=== PATIENT | male | born 1975 | race Caucasian/White ===

== ENCOUNTER 2018-03-13 13:45 | Inpatient (IN) | payer MEDICAID, OTHER ==
--- NOTE | 2018-03-13 14:53 | EDPHY ---
H & P Stated Complaint: LLE Pain Time Seen by Provider: 03/13/18 14:52 HPI/ROS: CHIEF COMPLAINT: Left hip and groin pain HISTORY OF PRESENT ILLNESS: The patient presents to the ED for evaluation of left hip and groin pain that is been occurring for the past 5 days. The patient describes a severe pain worsened with palpation and movement in his left groin. The patient denies vomiting or diarrhea. He has no complaints of abdominal pain or back pain. He denies any history of fall or trauma. He does report subjective fevers. He was seen at his primary care provider's office and reportedly had a high white blood cell count and was referred to the ED for further evaluation. REVIEW OF SYSTEMS: A comprehensive 10 point review of systems is otherwise negative aside from elements mentioned in the history of present illness. Source: Patient Exam Limitations: No limitations - Personal History Current Tetanus/Diphtheria Vaccine: Yes - Medical/Surgical History Hx Asthma: No Hx Chronic Respiratory Disease: No Hx Diabetes: No Hx Cardiac Disease: No Hx Renal Disease: No Hx Cirrhosis: No Hx Alcoholism: No Other PMH: Denies - Social History Smoking Status: Never smoked - Physical Exam Exam: General Appearance: Alert, appears uncomfortable Eyes: Pupils equal and round no pallor or injection ENT, Mouth: Mucous membranes moist Respiratory: There are no retractions, lungs are clear to auscultation Cardiovascular: Regular rate and rhythm Gastrointestinal: Abdomen is soft and nontender, no masses, bowel sounds normal Neurological: A&O, normal motor function, normal sensory exam, normal cranial nerves Skin: No cellulitis or abscess Musculoskeletal: Tenderness to palpation over the left groin, patient has painful range of motion noted in the left hip. Extremities: symmetrical, full range of motion Constitutional: Initial Vital Signs Temperature (C) 37.6 C 03/13/18 13:57 Heart Rate 100 03/13/18 13:57 Respiratory Rate 18 03/13/18 13:57 Blood Pressure 135/83 H 03/13/18 13:57 O2 Sat (%) 95 03/13/18 13:57 O2 Delivery Mode Room Air Allergies/Adverse Reactions: No Known Allergies Allergy (Unverified 03/13/18 14:01) Home Medications: Medication Instructions Recorded Herbals/Supplements -Info Only 1 ea PO DAILY 03/13/18 Medical Decision Making - Diagnostics Imaging Results: Imaging Impressions Joint Aspiration/Injection 03/13/18 00:00 Impression: 1. Successful left hip joint aspiration. Abdomen CT 03/13/18 15:27 Impression: 1. Normal CT abdomen and pelvis with contrast enhancement. 2. Left hip joint effusion with enhancement of the joint capsule suspicious for septic left hip. Findings discussed with Jacob Blandon at 16:35 hour, 03/13/2018. Extremity CT 03/13/18 15:27 Impression: 1. Normal CT abdomen and pelvis with contrast enhancement. 2. Left hip joint effusion with enhancement of the joint capsule suspicious for septic left hip. Findings discussed with Jacob Blandon at 16:35 hour, 03/13/2018. ED Course/Re-evaluation: The patient presents the ED with atraumatic left hip pain increasing over the past 5 days. The patient reports fevers over the past 2 days. He is unable to ambulate secondary to pain. He denies any acute numbness or weakness. Patient denies any history of recent surgery, open skin sores or dental work. The patient was noted to have significant tenderness in his left hip and inability to walk and range his hip fully. Patient was noted to have a leukocytosis as well as elevated inflammatory markers with a CRP of 220 and a sed rate of 65. The patient was taken for CT scan of the abdomen pelvis and hip. It does demonstrate a large left hip effusion. I consulted with Dr. Shamar Rodriguez at 4:00 p.m. regarding my high clinical suspicion for septic arthritis. I spoke with his physician laboratory chemical assistant. He has requested that we aspirate the hip with the help of the imaging department. I have ordered a hip arthrocentesis. In order to attain the aspirated did require the installation 5 mL of saline by the radiologist. Synovial fluid demonstrates a white blood cell count of 8800. This is predominantly neutrophils. Preliminary is that no crystals were seen. Patient was seen by the orthopedic service in the ED was recommending observation and following blood cultures and synovial cultures this evening. ID consultation has been requested. Differential Diagnosis: Differential diagnosis considered includes septic arthritis, inflammatory arthritis, gouty arthritis, hemarthrosis - Data Points Laboratory Results: Laboratory Results 03/13/18 14:49 03/13/18 14:49 03/13/18 03/13/18 03/13/18 16:47 14:49 14:49 WBC RBC Hgb Hct 36.0 % L % (40.0-51.0) MCV MCH MCHC RDW Plt Count MPV Neut % (Auto) Lymph % (Auto) [place] % (Auto) Eos % (Auto) Baso % (Auto) Nucleat RBC Rel Count Absolute Neuts (auto) Absolute Lymphs (auto) Absolute Monos (auto) Absolute Eos (auto) Absolute Basos (auto) Absolute Nucleated RBC Immature Gran % Immature Gran # ESR 65 MM/HR H MM/HR (0-15) VBG Lactic Acid Sodium Potassium Chloride Carbon Dioxide Anion Gap BUN Creatinine Estimated GFR Glucose Calcium C-Reactive Protein 220.5 mg/L H mg/L (<10.0) Fl Pathologist Review Pending Synovial Source SYNOVIAL Synovial Color YELLOW H (CLS/PALE YL) Synovial Appearance CLOUDY H (CLEAR) Synovial WBC 8840 /mm3 H /mm3 (0-150) Synovial RBC 0 /mm3 /mm3 (0-0) Synovial Neutrophils 91 % H % (0-25) Synovial Lymphocytes 3 % % Synov Monos/Macrophage 6 % % Synovial Crystals Pending 03/13/18 03/13/18 03/13/18 14:49 14:49 14:49 WBC 13.53 10^3/uL H 10^3/uL (3.80-9.50) RBC 4.28 10^6/uL L 10^6/uL (4.40-6.38) Hgb 12.8 g/dL L g/dL (13.7-17.5) Hct 36.0 % L % (40.0-51.0) MCV 84.1 fL fL (81.5-99.8) MCH 29.9 pg pg (27.9-34.1) MCHC 35.6 g/dL g/dL (32.4-36.7) RDW 12.0 % % (11.5-15.2) Plt Count 339 10^3/uL 10^3/uL (150-400) MPV 9.7 fL fL (8.7-11.7) Neut % (Auto) 79.9 % H % (39.3-74.2) Lymph % (Auto) 8.6 % L % (15.0-45.0) [place] % (Auto) 10.9 % % (4.5-13.0) Eos % (Auto) 0.0 % L % (0.6-7.6) Baso % (Auto) 0.2 % L % (0.3-1.7) Nucleat RBC Rel Count 0.0 % % (0.0-0.2) Absolute Neuts (auto) 10.79 10^3/uL H 10^3/uL (1.70-6.50) Absolute Lymphs (auto) 1.17 10^3/uL 10^3/uL (1.00-3.00) Absolute Monos (auto) 1.48 10^3/uL H 10^3/uL (0.30-0.80) Absolute Eos (auto) 0.00 10^3/uL L 10^3/uL (0.03-0.40) Absolute Basos (auto) 0.03 10^3/uL 10^3/uL (0.02-0.10) Absolute Nucleated RBC 0.00 10^3/uL 10^3/uL (0-0.01) Immature Gran % 0.4 % % (0.0-1.1) Immature Gran # 0.06 10^3/uL 10^3/uL (0.00-0.10) ESR VBG Lactic Acid 2.0 mmol/L mmol/L (0.7-2.1) Sodium 133 mEq/L L mEq/L (135-145) Potassium 4.0 mEq/L mEq/L (3.3-5.0) Chloride 95 mEq/L L mEq/L (97-110) Carbon Dioxide 23 mEq/l mEq/l (22-31) Anion Gap 15 mEq/L mEq/L (8-16) BUN 14 mg/dL mg/dL (7-23) Creatinine 0.8 mg/dL mg/dL (0.7-1.3) Estimated GFR > 60 Glucose 115 mg/dL H mg/dL (70-100) Calcium 9.5 mg/dL mg/dL (8.5-10.4) C-Reactive Protein Fl Pathologist Review Synovial Source Synovial Color Synovial Appearance Synovial WBC Synovial RBC Synovial Neutrophils Synovial Lymphocytes Synov Monos/Macrophage Synovial Crystals Microbiology Results: MICROBIOLOGY 03/13/18 16:47 Hip - Aspirate Gram Stain - Final Medications Given: Discontinued Medications Hydromorphone HCl (Dilaudid) 1 mg IVP EDNOW ONE Stop: 03/13/18 15:23 Last Admin: 03/13/18 15:24 Dose: 1 mg Hydromorphone HCl (Dilaudid) 1 mg IVP ONCE ONE Stop: 03/13/18 18:22 Last Admin: 03/13/18 18:26 Dose: 1 mg Departure - Departure Disposition: [facility] Acute Clinical Impression: Septic arthritis Condition: Good
[2018-03-13 15:08] LABS: PLATELET COUNT 339 10^3/uL (150-400)
[2018-03-13] MEDS ORDERED: HYDROmorphONE/DILAUDID 1 MG/ML INJ ONE ×2 (15:22→18:20)
[2018-03-13] MEDS ORDERED: HYDROmorphONE/DILAUDID 2 MG/ML INJ IVP ONE (15:22)
[2018-03-13] MEDS ORDERED: IOPAMIDOL (ISOVUE-300) 100 ML BTL ONE (15:43)
[2018-03-13] MEDS ORDERED: LIDOCAINE 1% 300 MG/30 ML SDV ONE (16:56)
[2018-03-13] MEDS ORDERED: IOPAMIDOL (ISOVUE 370) 100 ML BTL IV ONE (16:56)
[2018-03-13] MEDS ORDERED: HYDROmorphONE/DILAUDID 1 MG/ML INJ IVP ONE (18:21)
[2018-03-13] MEDS ORDERED: HYDROmorphONE/DILAUDID 1 MG/ML INJ IVP PRN (19:06)
[2018-03-13] MEDS ORDERED: PROMETHAZINE HCL 25 MG/ML INJ IVP PRN (19:06)
[2018-03-13] MEDS ORDERED: ONDANSETRON 4 MG/2 ML VIAL IVP PRN (19:06)
[2018-03-13] MEDS ORDERED: ONDANSETRON DISINTEGRATING 4 MG TAB PO PRN (19:06)
[2018-03-13] MEDS ORDERED: KETOROLAC 30 MG/1 ML SDV IVP ONE (19:06)
--- NOTE | 2018-03-13 19:21 | PDCONSULT ---
Chucking Lathe Operator Note: ORTHOPEDIC CONSULT NOTE We were asked to consult on Rocio who is a 42 YOM. He began to have left hip pain about 5 days ago which has progressively gotten worse. He was seen at a clinic where x-rays were taken showing no abnormalities. Blood work showed elevated lymphocytes and CRP 220. He was instructed to go to [facility] ER where CT w/ contrast showed left hip effusion. Left Hip was aspirated which showed 8800 WBC, 91 neutrophils, neg crystals, and no organisms on gram stain. This case was discussed with Dr. Rodriguez. At this point cultures are pending, and he would like patient to be admitted for observation. We would like Infectious Disease to get involved as well for further evaluation. [facility] ID has been consulted. We will await further discussion from ID whether to proceed with a left hip washout surgery vs monitoring. Antibiotics should be administered via recommendations per ID. Patient remains afebrile. Pain is somewhat controlled. Please call for any further questions or concerns. Kadeem Dominique PA-C for Dr. Michael PEREZ (Orthopedic Surgery)
[2018-03-13] MEDS: NS 1,000 ML IV SCH (20:23)
[2018-03-13] MEDS: KETOROLAC 15 MG/1 ML SDV IVP SCH (23:53)
[2018-03-14] MEDS: oxyCODONE IR 5 MG TAB PO PRN (01:24)
--- NOTE | 2018-03-14 01:59 | GHP ---
DATE OF ADMISSION: 03/13/2018 CHIEF COMPLAINT: Hip pain. HISTORY: This is a 42-year-old man with no significant past medical history who presents with 5 days of severe right hip pain along with fever. Patient does not believe he did anything to injure it, a lthough he says he may have sort of overused it about a week ago. He was seen at his primary care pr precious's office where they noted an elevated white blood cell count and sent him to the ER for furthe r evaluation for concerns of a septic hip. In the ER, he was evaluated by Orthopedics who recommende d a hip aspiration, given notable effusion on extremity CT. At the time my evaluation, patient zee nues to have pain. He states he is unable to walk. He denies fevers or chills. PAST MEDICAL HISTORY: Denies. PAST SURGICAL HISTORY: Denies. SOCIAL HISTORY: Patient is nonsmoker, rare drinker. No drug use. He is accompanied by his mother. He is very active. REVIEW OF SYSTEMS: 10-point review of systems obtained and negative except as per HPI. HOME MEDICATIONS: None. ALLERGIES: None. PHYSICAL EXAM: VITAL SIGNS: BP 123/73, heart rate 88, respiratory rate 18, O2 sats 93% on room air, temperature is 38.4. GENERAL APPEARANCE: This is a well-developed, well-nourished man. He is awak e and alert. He is in no acute distress. EYES: Anicteric. HENT: Oropharynx clear. CARDIOVASCULA R: Regular rate and rhythm. No MRG. PULMONARY: CTA bilaterally. Normal work of breathing. ABDOM EN: Soft, nontender, nondistended. EXTREMITIES: No clubbing, cyanosis, or edema. There is tendern ess to palpation over the left hip and a small area that is bandaged where he had I and D performed. SKIN: Warm, dry, well perfused. NEURO/PSYCH: Oriented and appropriate, pleasant. CLINICAL DATA: Labs reviewed, notable for white blood cell count of 13.53, hematocrit of 36.0, plate lets of 339. Lactic acid is 2. Sodium is 133. CRP is 220.5. On hip aspiration, there is 8840 whit e blood cells, [address] personally reviewed and interpreted, shows normal CT abdomen and pelvis. There is a lef t hip joint effusion with enhancement of the joint capsule, suspicious for septic left hip. ASSESSMENT AND PLAN: 1. This is a 42-year-old man presenting with hip pain, concerning for septic hip. 2. Septic hip. Again, exam and hip aspiration concerning for septic joint. Cultures on the hip asp irate have been sent and are pending as are blood cultures. Gram stain shows no organisms. Orthoped ics has been consulted and are recommending overnight monitoring. At this point, we will hold off on antibiotics as there is a consideration for possible hip washout tomorrow and, given that patient is stable, would prefer this to be performed off antibiotics so the cultures will be more accurate. ID has been consulted. Patient will be made n.p.o. after [facility] 3. Leukocytosis in the setting of above and presumably related to same. 4. Sepsis. Patient does meet SIRS criteria with fever and leukocytosis in the setting of presumed s eptic joint. Again, holding off on antibiotics with a plan for likely washout and pending whether th ere is any data obtained on the hip aspirate. 5. Inpatient status: Patient will require greater than 48-hour stay for evaluation and management o f above. 6. Patient is new to my care. Old records reviewed, summarized as per HPI and past medical history. Care plan reviewed with ER physician including plans for orthopedic consultation. Further history obtained from patient's mother present at bedside. /[id number]/MODL
[2018-03-14] MEDS ORDERED: DIAZEPAM 10 MG TAB PO ONE (02:11)
[2018-03-14] MEDS ORDERED: DIAZEPAM 5 MG TAB PO ONE (02:15)
[2018-03-14] MEDS: ACETAMINOPHEN 325 MG TAB PO PRN ×3 (04:02→14:15)
[2018-03-14 04:38] LABS: PLATELET COUNT 300 10^3/uL (150-400)
[2018-03-14] MEDS: KETOROLAC 15 MG/1 ML SDV IVP SCH ×3 (05:33→21:33)
[2018-03-14] MEDS: NS 1,000 ML IV SCH ×2 (05:35→21:40)
--- NOTE | 2018-03-14 10:42 | GCON ---
INFECTIOUS DISEASE CONSULTATION REASON FOR CONSULTATION: Bacteremia and septic left hip. HISTORY OF PRESENT ILLNESS: This is a 42-year-old male with no medical problems who was in usual state of health until developing severe left hip pain on March 08. Patient started taking scheduled NSAID and was seen by his primary care in clinic where they prescribed him Toradol, but the pain continued to progress. Patient intermittently felt hot, but did not document any fevers. He also had decreasing appetite and feels he has had some weight loss. Preceding this episode, he denies any specific injury, although the day prior, he was more active getting in and out of his car. One week prior, he had a papule/pimple on his right naris that he manipulated significantly. Otherwise, he has no skin breaks. Today, patient feels increasing malaise and severe left hip pain that is unchanged from admission last night. In the emergency room, patient underwent a CT scan of his hip in which a joint effusion was identified associated with the left hip. Patient underwent aspiration of this left hip, but fluid was not able to be obtained; therefore, sterile saline was injected into the joint 5 cc and 3 cc removed in which 8400 wbc's were identified, 91% neutrophils. Patient' s CRP was 220, and white count was elevated at 13,000. Patient was admitted for further management and Orthopedics was consulted. PAST MEDICAL HISTORY: None. PAST SURGICAL HISTORY: None. ALLERGIES: No known drug allergies. HOME MEDICATIONS: None. Patient has not received antibiotics by the time of my visit. SOCIAL HISTORY: He denies IV drug use, significant alcohol use, tobacco. 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 He is living with a family friend. He has 2 dogs, but no injuries. He moved to [place] in 1987, from [place]. He considers himself heterosexual. Last sexual activity 3 years ago. Last HIV testing was greater than 1 year ago. FAMILY HISTORY: Positive for heart disease. REVIEW OF SYSTEMS: A complete 10-point review of systems was performed and is negative, except as mentioned in HPI. EXAM: VITAL SIGNS: Blood pressure 152/92, heart rate 111, respiratory rate 13 , saturation 93% on room air, temperature currently 37.3, T-max 38.6. GENERAL: This is a fairly thin, nontoxic-appearing male in no acute distress. HEENT: Poor dentition. Dry mucous membranes. NECK: Supple. CARDIOVASCULAR: Regular rate. Tachycardic. No murmurs. CHEST: Clear to auscultation bilaterally. ABDOMEN: Soft, nontender. EXTREMITIES: The patient had point tenderness around his left hip. No obvious skin abnormalities. He had no lower extremity edema. Patient was fairly unwilling to move his left hip due to irritability, but was able to flex his foot and had normal strength distally on the left side. No palpable warmth was appreciated. SKIN: No rashes. No peripheral stigmata of endocarditis. LABORATORY/IMAGING: White count 10.3, hematocrit 33, platelets of 300, neutrophils 87%. Creatinine 0.8. CRP 222. Synovial fluid cell count as per HPI. Microbiology: Blood cultures 03/13/2018: 1 of 2 positive blood cultures, GPCs in clusters. Hip aspirate 03/13/2018: Gram stain was negative. Cultures pending. Imaging as per HPI. ASSESSMENT/PLAN: This is a 42-year-old male without prior medical history who presents with spontaneous left septic hip arthritis and associated bacteremia. Based on current data, suspect Staphylococcus aureus, awaiting BCID. In the meantime due to tachycardia and ongoing fever, would initiate vancomycin with a goal of 15 to 20, 1.25 g IV q.12 and will tailor antibiotics based on additional information from BCID. Discussed with Orthopedics, patient will need a washout of this left hip. Patient is adamant to have laparoscopic procedure and discussed increased chance for repeat washout needed with laparoscopic procedures with disease duet to SA. Would recommend still obtaining cultures intraoperatively during procedure. Discussed with patient that he will need prolonged intravenous antibiotic therapy to treat his spontaneous left septic arthritis and discussed PICC line placement. I will continue to follow patient on a daily basis. Greater than 70 minutes spent on this patients care, greater than 50% of time spent counseling, educating, and coordinating care regarding the above mentioned plan /[id number]/MODL MTDD
[2018-03-14] MEDS ORDERED: ACETAMINOPHEN 325 MG TAB PO ONE (10:43)
[2018-03-14] MEDS ORDERED: FAMOTIDINE 20 MG TAB PO ONE (10:43)
--- NOTE | 2018-03-14 10:43 | ASMTCMCOM ---
CM Note CM Note Notes: Pt admitted for septic hip and possible bacteremia with blood cultures positive for MRSA and gram positive cocci clusters. Pt to have I&D washout today at 14:30. CM needs TBD after surgery. PT and OT ordered. D/C Plan: TBD Date Signed: 03/14/2018 10:43 AM Electronically Signed By:Prema Sy
--- NOTE | 2018-03-14 10:50 | PDCONSULT ---
Breaker Oiler Note: ORTHOPEDIC CONSULT NOTE Patient pain has been well controlled. Lab studies show bacteremia with gram pos cocci clusters, and he has tested pos for MRSA. ASSESMENT/PLAN Septic Left Hip Discussed case with Dr. Campo (Orthopedics) who has agreed to do a left hip arthroscopic washout. Case will begin about 2:30pm today 03/14 Risks and benefits of procedure were discussed with patient. Consent was signed. Hospitalist, Infectious Disease, and Dr. Campo (ortho) will continue to manage and follow this patient. We appreciate being able to consult on this patient. If any questions arise please dont hesitate to reach out. EXAM: Left Hip Painful ROM. No erythema or open wounds noted. Distal neurovasculature intact. Kadeem Dominique PA-C. Dr Rodriguez (Orthopedic Surgery) also examined patient and agrees with above plan of care.
[2018-03-14] MEDS ORDERED: ONDANSETRON DISINTEGRATING 4 MG TAB PO PRN (10:52)
--- NOTE | 2018-03-14 10:55 | ASMTCMCOM ---
CM Note CM Note Notes: Spoke with pt and mother in the room. Pt states he doesn't anticipate any CM needs upon discharge. Mother and housemate are available to help with food, medications and transportation. Pt to see PT/OT after surgery today for full evaluation. CM needs TBD, likely independent. D/c Plan: likely independent TBD. Date Signed: 03/14/2018 10:54 AM Electronically Signed By:Prema Sy
[2018-03-14] MEDS: VANCOMYCIN 1.25 GM in D5W 250 ML IV SCH ×2 (11:17→21:33)
--- NOTE | 2018-03-14 12:18 | HOSPPROG ---
Hospitalist Progress Note Assessment/Plan: Mr Avila is a 42 y/o who presented w hip pain. This has been ongoing since March 08. Today is my first encounter w the patient, chart reviewed. * septic hip -to get wash out today *tachycardia and fevers -due to the above *sepsis due to the above *bacteremia -MRSA -vancomycin -on contact precautions -CRP elevated at 220 *hyponatremia -mild *Plan: OR today Subjective: Rocio has some tenderness in left hip area. Objective: Vital Signs Temp Pulse Resp BP Pulse Ox 37.3 C 111 H 13 150/92 H 93 03/14/18 08:00 03/14/18 08:00 03/14/18 08:00 03/14/18 08:00 03/14/18 08:00 Laboratory Results 03/14/18 04:17 03/13/18 03/14/18 03/15/18 05:59 05:59 05:59 Intake Total 130 Output Total 700 Balance -570 - Physical Exam Constitutional: no apparent distress, other (thin) Eyes: PERRL Ears, Nose, Mouth, Throat: hearing normal Cardiovascular: regular rate and rhythym Respiratory: no respiratory distress Gastrointestinal: normoactive bowel sounds Skin: warm Musculoskeletal: muscular tenderness (left thigh, left hip area) Neurologic: AAOx3 Psychiatric: interacting appropriately ICD10 Worksheet Patient Problems: Problems Problem Status Onset Septic arthritis Acute
--- NOTE | 2018-03-14 13:26 | PDMN ---
Medical Necessity Medical necessity: Pt meets inpt criteria per MD order and MCG M-605, Septic Arthritis, 3 days. 42 y/o w/severe R hip pain and fevers, admitted w/septic arthritis, CT shows notable L hip joint effusion, suspicious for septic L hip, hip aspirate w/ 8840 WBC's, 91 neutrophils, CRP 220.5. Blood cultures + MRSA, sepsis w/pt meeting SIRS criteria w/fevers, leukocytosis. IVF, IV antibiotics, pain meds, ID consult, ortho consult, plan for OR today for hip washout. Anticipate>2MN for ongoing med nec eval/treatment of above.
[2018-03-14] MEDS: HYDROmorphONE/DILAUDID 2 MG/ML INJ IVP PRN ×2 (13:57→13:59)
[2018-03-14 15:04] LABS: HIV TYPE 1 AND 2 NEGATIVE (NEGATIVE)
[2018-03-14] MEDS ORDERED: FAMOTIDINE 20 MG TAB ONE (15:11)
[2018-03-14] MEDS ORDERED: LR 1,000 ML IV ONE (15:22)
[2018-03-14] MEDS ORDERED: LIDOCAINE 1% 2 ML INJ ID PRN (15:22)
[2018-03-14] MEDS ORDERED: MIDAZOLAM 2 MG/2 ML VIAL IVP ONE (15:24)
[2018-03-14] MEDS ORDERED: MIDAZOLAM 2 MG/2 ML VIAL ONE (15:25)
--- NOTE | 2018-03-14 15:26 | PDANEPAE ---
ANE History of Present Illness 42 yo for hip scope ANE Past Medical History - Cardiovascular History Hx Hypertension: No Hx Arrhythmias: No Hx Chest Pain: No Hx Coronary Artery / Peripheral Vascular Disease: No Hx CHF / Valvular Disease: No Hx Palpitations: No - Pulmonary History Hx COPD: No Hx Asthma/Reactive Airway Disease: No Hx Recent Upper Respiratory Infection: No Hx Oxygen in Use at Home: No Hx Sleep Apnea: No Sleep Apnea Screening Result - Last Documented: Negative - Endocrine History Hx Diabetes: No - Chronic Pain History Chronic Pain: No ANE Review of Systems Review of Systems: - Exercise capacity METS (RN): 5 METS ANE Patient History - Allergies Allergies/Adverse Reactions: No Known Allergies Allergy (Unverified 03/13/18 14:01) - Home Medications Home medications: home medication list seen and reviewed Home Medications: Herbals/Supplements -Info Only 1 ea PO DAILY 03/13/18 [Last Taken 03/13/18] - NPO status NPO Since - Liquids (Date): 03/14/18 NPO Since - Liquids (Time): 00:00 NPO Since - Solids (Date): 03/14/18 NPO Since - Solids (Time): 00:00 - Anes Hx Anes Hx: no prior problems - Smoking Hx Smoking Status: Never smoked ANE Labs/Vital Signs - Labs Result Diagrams: 03/14/18 04:17 03/13/18 14:49 - Vital Signs Blood Pressure: 118/71 Heart Rate: 120 Respiratory Rate: 16 O2 Sat (%): 90 Height: 5 ft 11 in Weight: 66 kg ANE Physical Exam - Airway Neck exam: FROM Mallampati Score: Class 2 Mouth exam: normal dental/mouth exam - Pulmonary Pulmonary: no respiratory distress - Cardiovascular Cardiovascular: regular rate and rhythym - ASA Status ASA Status: II ANE Anesthesia Plan Anesthesia Plan: general endotracheal anesthesia
[2018-03-14] MEDS ORDERED: REMIFENTANIL HCL 1 MG VIAL ONE (15:33)
[2018-03-14] MEDS ORDERED: fentaNYL 100 MCG/2 ML INJ ONE ×3 (15:33→18:33)
[2018-03-14] MEDS ORDERED: PROPOFOL/EMULSION 500 MG/50 ML BOTTLE IV ONE (15:33)
[2018-03-14] MEDS ORDERED: ROCURONIUM 50 MG/5 ML VIAL ONE (15:36)
[2018-03-14] MEDS ORDERED: LIDOCAINE 2% 100 MG/5 ML SYR ONE (15:37)
[2018-03-14] MEDS ORDERED: DEXAMETHASONE 4 MG/ML VIAL ONE (15:37)
[2018-03-14] MEDS ORDERED: VANCOMYCIN 1 GM VIAL ONE (16:49)
[2018-03-14] MEDS ORDERED: WATER FOR INJ.,BACTERIOSTATIC 30 ML MDV ONE (16:50)
[2018-03-14] MEDS ORDERED: GLYCOPYRROLATE 0.2 MG/1 ML VIAL ONE ×2 (17:26)
[2018-03-14] MEDS ORDERED: NEOSTIGMINE METHYLSULFATE 5 MG/5 ML SYR ONE (17:26)
[2018-03-14] MEDS ORDERED: NALOXONE HCL 0.4 MG/ML INJ IVP PRN (17:28)
[2018-03-14] MEDS ORDERED: HYDROmorphONE/DILAUDID 2 MG/ML INJ IVP PRN (17:28)
[2018-03-14] MEDS ORDERED: ONDANSETRON 4 MG/2 ML VIAL IVP PRN (17:28)
[2018-03-14] MEDS ORDERED: fentaNYL 100 MCG/2 ML INJ IVP PRN (17:28)
--- NOTE | 2018-03-14 18:52 | POSTANESTH ---
Post Anesthetic Evaluation Cardiovascular Status: Normal, Stable Respiratory Status: Normal, Stable Level of Consciousness/Mental Status: Can Participate in Eval Pain Control: Adequate, Prn Tx Ordered Nausea/Vomiting Control: Adequate, Prn Tx Ordered Complications Possibly Related to Anesthesia: None Noted
--- NOTE | 2018-03-14 23:59 | SUROPNOTE ---
[facility] Operative Report - Surgery OPERATION NOTE~on Rocio Esparza~ This is a 42 yo patients with Left septic hip of unknown cause. He was admitted to [facility] and was under the care of internal medicine and ID. I was asked by Dr Patel to performed an arthroscopic wash out. All parameters indicated this is the right procedure at this time to improve this patient's status. MRI did not show bone edema or AVN or other worrying signs. Surgery was performed at:~[facility] Date of Surgery:~03/14/2018 Diagnosis:~ 1. Left septic hip 2. JILLIAN with labral tear and cartilage damage Operation:~Left~Arthroscopic wash out of a septic hip, debridement of labral tear, extensive synovectomy, multiple biopsies of tissue and fluid were sent to pathology and bacteriology~~~ Indication: Failure to obtain satisfactory results with long standing conservative measures. Surgeon:~~~~~~~~~~~Garry De La Rosa MD ~ Anaesthetic:~~~~~General Findings~ Left~Hip: 40ml of pus were aspirated at the beginning of the procedure Labrum:~Torn and Frayed around~12-5~O'clock.~will require recon if JILLIAN scope is performed.~ Acetabulum:~Cartilage damage grade~3-4~extending around chondrolabral junction, circumferentially, from 10~to 1,~20% rim to acatabular fossa Fovea:~Reactive LT Femoral Head:~frayed cartilage G1 - not much affected yet by the sepsis~ Synovium:~severe~synovitis Peripheral Compartment:~Anterolateral CAM between~11~O'clock superiorly and 6~O' clock anteriorly Procedure: Supine on operating table. General anaesthetic. Antibiotics given. Standard traction set up, without perineal post. A spinal needle was guided to the femoral head neck junction and traction gradually applied with the joint vented. Local anesthetic infiltrated into the skin around the portals. Once~17mm of distraction was achieved the hip needle was then passed into the joint staying as close to the femoral head as possible. A Nytenol wire was passed through the hip needle ensuring that it passed all the way to the fovea to confirm central placement of the needle. Skin was incised and then the portals sequentially dilated to 7 mm. Switching stick inserted and 30 scope passed over the top. Under dry scope conditions the anterior portal was created by passing the hip needle into the joint under direct vision. Again this was dilated up to 7 mm and the slotted canule was inserted. The saline was then turned on and the joint irrigated. The joint was carefully inspected and photographed with findings as above. The arthroscope was switched to the 70 scope to complete the inspection. A longitudinal intra portal capsulotomy was then performed using quartz valley blade and the 50 Arthrocare wand to connect the two portals. Central Compartment Intervention: Synovectomy was performed.~ multiple biopsies of tissue and fluid were sent to pathology and bacteriology Labral tissue was debrided at its base. Peripheral Compartment Intervention:~ No cam work was done at this time - despite large cam Good seal was seen. The joint was thoroughly irrigated~with 10 litters of saline and Vanco Abx. The skin was then closed with Nylon. Padded dressing was applied. Drain was left for 24 hours. Post op instructions: 1.~Full~weight bearing crutches for 3~weeks 2. Pain killers as prescribed 3. Abx / ID coverage~ ~ Kind regards, ~~ Dr. Garry De La Rosa
[2018-03-15] MEDS: KETOROLAC 15 MG/1 ML SDV IVP SCH ×5 (01:58→23:36)
[2018-03-15] MEDS: NS 1,000 ML IV SCH ×2 (06:19→17:06)
--- NOTE | 2018-03-15 08:52 | HOSPPROG ---
Hospitalist Progress Note Assessment/Plan: Mr Avila is a 42 y/o who presented w hip pain. This has been ongoing since March 08. * left septic hip -s/p washout and labral tear repair w Dr De La Rosa *tachycardia and fevers -much improved *sepsis due to the above *MRSA bacteremia -vancomycin -on contact precautions -CRP elevated at 220 *hyponatremia -mild *Plan: reviewed w patient lab results in regards to HIV, continue supportive care, to get an echo today. Subjective: Rocio is feeling overall better today, is tearful about being sick. Objective: Vital Signs Temp Pulse Resp BP Pulse Ox 36.7 C 86 16 105/66 95 03/15/18 03:25 03/15/18 03:25 03/15/18 03:25 03/15/18 03:25 03/15/18 03:25 Microbiology 03/14/18 17:30 Gram Stain - Final Hip - Tissue 03/14/18 16:39 Gram Stain - Final Hip - Tissue 03/14/18 16:39 Gram Stain - Final Hip - Aspirate Laboratory Results 03/14/18 04:17 03/14/18 03/15/18 03/16/18 05:59 05:59 05:59 Intake Total 130 2270 875 Output Total 700 220 600 Balance -570 2050 275 - Physical Exam Constitutional: no apparent distress, appears nourished, uncomfortable Eyes: PERRL Ears, Nose, Mouth, Throat: hearing normal Cardiovascular: regular rate and rhythym, no murmur, rub, or gallop Respiratory: no respiratory distress Gastrointestinal: normoactive bowel sounds Skin: warm Neurologic: AAOx3 Psychiatric: interacting appropriately ICD10 Worksheet Patient Problems: Problems Problem Status Onset Septic arthritis Acute
[2018-03-15] MEDS: VANCOMYCIN 1.25 GM in D5W 250 ML IV SCH ×2 (10:16→21:21)
--- NOTE | 2018-03-15 11:15 | PCMIDPN ---
Assessment/Plan: 1. MRSA bacteremia with left hip septic arthritis status post arthroscopic washout with labral tear repair: Patient reported self manipulation of an intranasal infected hair follicle vs. other 3 days prior to feeling unwell. This certainly could be the source of his bacteremia in the setting of extensive self manipulation. No obvious reach of his integument on physical exam. Will obtain echocardiogram for completeness sake today, and repeat blood cultures. Vancomycin trough ordered for the morning, but if requires q.8 dosing of vancomycin, would prefer to switch to once daily daptomycin for ease of administration. HIV antibody testing negative. 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 I told him I was unable to do that, but if he has concerns about his safety, would recommend calling adult protective services. He expressed understanding. Over 35 min spent with this patient today. Subjective: States he is feeling better. Status post arthroscopic washout of left septic hip, with labral tear repair. Denies shaking chills. No diarrhea. No rash. Proceeded to have extensive conversation with me about the ela of his infection, and concerns over his elderly roommates hygiene practices. Objective: T-max 39.7 degrees Vancomycin 1.25 g IV q.12 hours day 1 Vital Signs Temp Pulse Resp BP Pulse Ox 36.7 C 86 16 105/66 95 03/15/18 03:25 03/15/18 03:25 03/15/18 03:25 03/15/18 03:25 03/15/18 03:25 Microbiology 03/14/18 17:30 Gram Stain - Final Hip - Tissue 03/14/18 16:39 Gram Stain - Final Hip - Tissue 03/14/18 16:39 Gram Stain - Final Hip - Aspirate Laboratory Results 03/14/18 04:17 03/14/18 03/15/18 03/16/18 05:59 05:59 05:59 Intake Total 130 2270 875 Output Total 700 220 600 Balance -570 2050 275 ESR 65 MM/HR (0-15) H 03/13/18 14:49 C-Reactive Protein 220.5 mg/L (<10.0) H 03/13/18 14:49 - Physical Exam General Appearance: alert, no apparent distress EENT: No scleral icterus, No thrush Respiratory: lungs clear Cardiac/Chest: regular rate, rhythm, No systolic murmur Extremities: other (Left hip is wrapped; I did not take the dressing down) Abdomen: non-tender, soft Skin: No rash, No embolic lesions ICD10 Worksheet Patient Problems: Problems Problem Status Onset Septic arthritis Acute
[2018-03-15] MEDS: HYDROCODONE/APAP 5/325 TAB PO PRN ×3 (11:47→21:20)
[2018-03-15 11:56] LABS: GC AMPLIFICATION GENPROBE NEGATIVE (NEGATIVE)
[2018-03-15 12:27] LABS: CREATINE KINASE 133 IU/L (0-224)
--- NOTE | 2018-03-15 15:08 | ASMTCMCOM ---
CM Note CM Note Notes: Pt approved for Medicaid #[id number], pt very relieved to hear this. Pt likely needs senior care IV antibiotics. Referral sent to [facility], [facility] pt Medicaid and he is covered 100% for Vanco. Pt d/c date TBD and exactly which antibiotic pt will d/c with TBD. 01/01 can accept pt for home health, referral sent in [employer]. D/c plan of care: Home with IV antibiotcs via [facility] and 01/01 [facility] Date Signed: 03/15/2018 03:05 PM Electronically Signed By:SHINE Chand
--- NOTE | 2018-03-15 15:35 | ECHO ---
[email or web address] [address] [address] Main: [phone] Fax: Transthoracic Echocardiogram Name: HERI FRANCISCO MR#: [id number] Study Date: 03/15/2018 Study Time: 02:08 PM Date of : 1975 Age: 42 year(s) Height: 180.3 cm (71 in.) Weight: 65.77 kg (145 lb.) BSA: 1.84 m2 Gender: Male Examination: Echo Indication: MRSA bacteremia, left hip septic arthritis, eval for endocarditis Image Quality: Contrast: Requested by: Margaret Braun BP: 127 mmHg/77 mmHg Heart Rate: Rhythm: Tachycardia Indication: MRSA bacteremia, left hip septic arthritis, eval for endocarditis Procedure Staff Analyst Sales: Imer Carvalho RDCS Reading Physician: Hernesto Boone MD Requesting Provider: Conclusions: Normal size left ventricle. Normal global systolic LV function. EF is 66 %. The mitral valve is normal in appearance and function. Trivial mitral valve regurgitation. The aortic valve is tri-leaflet. There is no significant aortic valve regurgitation. The pulmonary artery pressure could not be adequately estimated. No vegetations or significant valve dysfunction identified on TTE. Consider SUE if clinicially indicated. No old studies for comparison. Measurements: Chambers Valvular Assessment AV/MV Valvular Assessment TV/PV Normal Normal Normal Name Value Range Name Value Range Name Value Range Ao Gabbi (MM): 3.1 cm (2.2 cm-3.7 AV Vmax: 1.59 m/s (1 m/s-1.7 TR Vmax: 3.42 mm/s ( - ) cm) m/s) PV Vmax: 1.21 m/s (0.6 m/s-0.9 IVSd (2D): 0.7 cm (0.6 cm-1.1 AV maxP mmHg ( - ) m/s) cm) LVOT Vmax: 1.29 m/s (0.7 m/s-1.1 PV PGmax: 6 mmHg ( - ) LVDd (2D): 5.2 cm (4.2 cm-5.9 m/s) cm) MV E Vmax: 0.85 m/s ( - ) LVDs (2D): 3.3 cm (2.1 cm-4 MV A Vmax: 0.72 m/s ( - ) cm) MV E/A: 1.18 ( - ) LVPWd (2D): 0.9 cm (0.6 cm-1 cm) LVEF (2D): 66 (>=54 %) Continued Measurements: Chambers Valvular Assessment AV/MV Valvular Assessment TV/PV Patient: HERI FRANCISCO Study Date: 03/15/2018 Page 1 of 2 02:08 PM Name Value Name Value Name Value LADs Lon.3 cm MV E' Septal: 0.10 m/s CVP (est.): 5 mmHg LA Area: 16.6 cm2 MV E/E' Septal: 8.10 LA Volume: 49 ml MV E/E' Lateral: 6.00 LA Volume Index: 26.6 ml/m2 Findings: Left Ventricle: Normal size left ventricle. No LV hypertrophy. Normal global systolic LV function. EF is 66 %. No regional wall motion abnormality. Normal diastolic LV function. Right Ventricle: Normal size right ventricle. Normal RV function. Left Atrium: The left atrium is normal in size. Right Atrium: The right atrium is normal in size. Mitral Valve: The mitral valve is normal in appearance and function. Trivial mitral valve regurgitation. Aortic Valve: The aortic valve is tri-leaflet. There is no significant aortic valve regurgitation. Tricuspid Valve: The tricuspid valve appears normal. Trivial to mild tricuspid valve regurgitation. Pulmonic Valve: The pulmonic valve is normal in appearance and function. Aorta: The aorta is normal. Pericardium: No pericardial effusion. (No Signature Object) Patient: HERI FRANCISCO Study Date: 03/15/2018 Page 2 of 2 02:08 PM [id number]
--- NOTE | 2018-03-16 00:07 | SOAPPROG ---
SOLE Progress Note Assessment/Plan: Assessment: Plan: 03/16/18 00:04 saw the patient POD 1 after arthroscopic washout (03/15 1pm). Pulled drain out, not much in it or in gaze under tega. Feels better, looks better. NV intact. Discussed surgical findings with him. FWB with crutches recommended. Under care of ID, no restrictions on my end. Dr De La Rosa Objective: Vital Signs Temp Pulse Resp BP Pulse Ox 37.7 C 100 18 120/71 91 L 03/15/18 23:34 03/15/18 23:34 03/15/18 23:34 03/15/18 23:34 03/15/18 23:34 Microbiology 03/14/18 16:39 Gram Stain - Final Hip - Tissue 03/14/18 16:39 Gram Stain - Final Hip - Aspirate 03/14/18 17:30 Gram Stain - Final Hip - Tissue 03/14/18 16:39 Mycobacterial Smear (MEGGAN) - Final Hip - Aspirate 03/14/18 16:39 Mycobacterial Smear (MEGGAN) - Final Hip - Tissue 03/14/18 17:30 Mycobacterial Smear (MEGGAN) - Final Hip - Tissue Laboratory Results 03/14/18 04:17 03/14/18 03/15/18 03/16/18 05:59 05:59 05:59 Intake Total 130 2270 4950 Output Total 557 605 7655 Balance -570 2050 2950 ICD10 Worksheet Patient Problems: Problems Problem Status Onset Septic arthritis Acute
[2018-03-16] MEDS: NS 1,000 ML IV SCH ×3 (03:06→20:59)
[2018-03-16] MEDS: HYDROCODONE/APAP 5/325 TAB PO PRN ×4 (03:15→20:59)
[2018-03-16] MEDS: KETOROLAC 15 MG/1 ML SDV IVP SCH ×4 (06:04→23:56)
--- NOTE | 2018-03-16 08:31 | HOSPPROG ---
Hospitalist Progress Note Assessment/Plan: Mr Avila is a 42 y/o who presented w hip pain. This has been ongoing since March 08. * left septic hip -s/p washout and labral tear repair w Dr De La Rosa *tachycardia and fevers -much improved *sepsis due to the above *MRSA bacteremia -vancomycin, to be changed to Daptomycin today (reviewed his care w Dr Braun) -on contact precautions -CRP elevated at 220 -second set of blood cx remain + *hyponatremia -mild *constipation -bowel protocol *Plan: continue current treatment, no PICC line until cx are cleared x 48 hours Subjective: Rocio is feeling better today, minimal pain. Objective: Vital Signs Temp Pulse Resp BP Pulse Ox 37.1 C 73 16 115/73 90 L 03/16/18 07:43 03/16/18 07:43 03/16/18 07:43 03/16/18 07:43 03/16/18 07:43 Microbiology 03/14/18 16:39 Gram Stain - Final Hip - Tissue 03/14/18 16:39 Gram Stain - Final Hip - Aspirate 03/14/18 17:30 Gram Stain - Final Hip - Tissue 03/14/18 16:39 Mycobacterial Smear (MEGGAN) - Final Hip - Aspirate 03/14/18 16:39 Mycobacterial Smear (MEGGAN) - Final Hip - Tissue 03/14/18 17:30 Mycobacterial Smear (MEGGAN) - Final Hip - Tissue Laboratory Results 03/14/18 04:17 03/15/18 03/16/18 03/17/18 05:59 05:59 05:59 Intake Total 2270 5950 1469 Output Total 220 2600 400 Balance 2050 3350 1069 - Physical Exam Constitutional: no apparent distress, not in pain Ears, Nose, Mouth, Throat: hearing normal Cardiovascular: regular rate and rhythym Respiratory: no respiratory distress Skin: warm Musculoskeletal: full muscle strength Neurologic: AAOx3 Psychiatric: interacting appropriately ICD10 Worksheet Patient Problems: Problems Problem Status Onset Septic arthritis Acute
[2018-03-16] MEDS ORDERED: BISACODYL 10 MG SUPP PR PRN (09:00)
[2018-03-16] MEDS ORDERED: LACTULOSE 20 GM/30 ML UDCUP PO PRN (09:00)
[2018-03-16] MEDS ORDERED: MAGNESIUM HYDROXIDE 30 ML UDCUP PO PRN (09:00)
[2018-03-16] MEDS: SENNOSIDES/DOCUSATE SODIUM TAB PO SCH ×2 (09:54→20:59)
[2018-03-16] MEDS: POLYETHYLENE GLYCOL 3350 17 GM PKT PO SCH (09:54)
[2018-03-16] MEDS: VANCOMYCIN 1.25 GM in D5W 250 ML IV SCH (11:18)
[2018-03-16] MEDS: DAPTOmycin 400 MG in NS 100 ML IV SCH (11:38)
--- NOTE | 2018-03-16 12:17 | PCMIDPN ---
Assessment/Plan: 1. MRSA bacteremia with left hip septic arthritis status post arthroscopic washout with labral tear repair: As outlined yesterday, suspect extensive self manipulation of intranasal folliculitis is potential source of infection. Changed vancomycin to daptomycin given low trough and probable need for every 8 hr dosing of vancomycin, which is impractical moving forward. CK is normal at baseline. Talked to patient today about possibility of drug-induced myopathy or allergic hypersensitivity pneumonitis from daptomycin. He expressed understanding. Blood cultures yesterday are still positive, but bacterial burden is decreasing ; repeat blood cultures tomorrow. Echocardiogram without evidence of vegetations; do not feel that he needs a SUE presently. No PICC line until blood cultures are clear for 48 hr. Of note, if the patient continues to be febrile and bacteremic, may require open washout and SUE. Subjective: In good spirits today. No real complaints. Walked around with OT yesterday without any problems. Orthopedics removed his drain yesterday. Objective: Vancomycin day 2 Now on daptomycin 400 mg IV daily as of today T-max 39.3 degrees Vital Signs Temp Pulse Resp BP Pulse Ox 37.1 C 73 16 115/73 90 L 03/16/18 07:43 03/16/18 07:43 03/16/18 07:43 03/16/18 07:43 03/16/18 07:43 Microbiology 03/14/18 16:39 Gram Stain - Final Hip - Tissue 03/14/18 16:39 Gram Stain - Final Hip - Aspirate 03/14/18 17:30 Gram Stain - Final Hip - Tissue 03/14/18 16:39 Mycobacterial Smear (MEGGAN) - Final Hip - Aspirate 03/14/18 16:39 Mycobacterial Smear (MEGGAN) - Final Hip - Tissue 03/14/18 17:30 Mycobacterial Smear (MEGGAN) - Final Hip - Tissue Laboratory Results 03/14/18 04:17 03/16/18 08:50 03/15/18 03/16/18 03/17/18 05:59 05:59 05:59 Intake Total 2270 5950 1469 Output Total 220 2600 400 Balance 2050 3350 1069 ESR 65 MM/HR (0-15) H 03/13/18 14:49 C-Reactive Protein 220.5 mg/L (<10.0) H 03/13/18 14:49 Blood cultures March 1507/15 bottles MSSA Vancomycin MEGGAN 1 Daptomycin MEGGAN less than 1 - Physical Exam General Appearance: alert, no apparent distress EENT: pharynx normal, No thrush Respiratory: lungs clear Cardiac/Chest: regular rate, rhythm Extremities: other (Left hip with a SilvaSorb dressing in place that I did not remove. No obvious swelling or erythema. Mildly tender around the dressing.) Abdomen: non-tender, soft Skin: No rash, No embolic lesions ICD10 Worksheet Patient Problems: Problems Problem Status Onset Septic arthritis Acute
[2018-03-17] MEDS: HYDROCODONE/APAP 5/325 TAB PO PRN ×2 (03:47→21:46)
[2018-03-17] MEDS: KETOROLAC 15 MG/1 ML SDV IVP SCH ×4 (05:49→23:28)
[2018-03-17] MEDS: NS 1,000 ML IV SCH ×2 (07:28→23:36)
--- NOTE | 2018-03-17 09:38 | HOSPPROG ---
Hospitalist Progress Note Assessment/Plan: Mr Avila is a 42 y/o who presented w hip pain. This has been ongoing since March 08. * left septic hip -s/p washout and labral tear repair w Dr De La Rosa -left leg wound site with more drainage and having more pain -may need further washout (reviewed this w Dr Braun-she will see Rocio) *tachycardia and fevers -febrile yesterday and tachycardic -echo shows no vegetations -if remains febrile, may need a SUE (will discuss w ID) *sepsis due to the above *MRSA bacteremia -daptomycin -on contact precautions -CRP elevated at 220 -second set of blood cx remain + -3rd set pending *insomnia -added scheduled Melatonin and prn Restoril *Reflux -scheduled PPI and prn Tums *hyponatremia -mild *constipation -bowel protocol *Plan: continue current treatment, no PICC line until cx are cleared x 48 hours. Reviewed his care with him and his mom. Rocio has multiple concerns and these were discussed. Subjective: Rocio is not feeling well today, has some nausea, concerned his wound was draining last night down his leg/ describes it as clear bloody. Objective: Vital Signs Temp Pulse Resp BP Pulse Ox 36.8 C 102 H 16 119/75 93 03/17/18 07:55 03/17/18 07:55 03/17/18 07:55 03/17/18 07:55 03/17/18 07:55 Microbiology 03/14/18 17:30 Gram Stain - Final Hip - Tissue 03/14/18 16:39 Gram Stain - Final Hip - Aspirate 03/14/18 16:39 Gram Stain - Final Hip - Tissue Laboratory Results 03/14/18 04:17 03/16/18 08:50 03/16/18 03/17/18 03/18/18 05:59 05:59 05:59 Intake Total 5950 3919 Output Total 2600 2500 350 Balance 3350 1419 -350 - Physical Exam Constitutional: uncomfortable, No not in pain (left hip) Eyes: PERRL Ears, Nose, Mouth, Throat: hearing normal Cardiovascular: regular rate and rhythym, no murmur, rub, or gallop, tachycardia Respiratory: no respiratory distress Skin: warm, No normal color (pale) Neurologic: AAOx3 Psychiatric: not encephalopathic, thought process linear, anxious ICD10 Worksheet Patient Problems: Problems Problem Status Onset Septic arthritis Acute
[2018-03-17] MEDS: OXYCODONE/APAP 5/325 TAB PO PRN (09:45)
[2018-03-17] MEDS: ONDANSETRON 4 MG/2 ML VIAL IVP PRN (09:48)
[2018-03-17] MEDS: POLYETHYLENE GLYCOL 3350 17 GM PKT PO SCH (09:51)
[2018-03-17] MEDS: SENNOSIDES/DOCUSATE SODIUM TAB PO SCH ×2 (09:52→21:47)
[2018-03-17] MEDS: DAPTOmycin 400 MG in NS 100 ML IV SCH (09:59)
[2018-03-17] MEDS ORDERED: CALCIUM CARBONATE 500 MG CHEWABLE TAB PO PRN (10:44)
[2018-03-17] MEDS ORDERED: TEMAZEPAM 15 MG CAP PO PRN (10:48)
--- NOTE | 2018-03-17 11:51 | PCMIDPN ---
Assessment/Plan: 1. MRSA bacteremia with left hip septic arthritis status post arthroscopic washout with labral tear repair: The patient has pus spurting from arthroscopic incisions this morning, and unfortunately will require another washout. He absolutely declines an open washout, and wants another arthroscopy in spite of my counseling. Continue daptomycin as is. Repeat blood cultures are pending, although they may continue to be positive in setting of ongoing infection in the left hip. 03/17/18 11:41 Subjective: Mother is in the room. Tells me"I had a bad night."Tells me that when he gets up and walks around, has drainage from his arthroscopic incisions. Also having some chills. Was able to express significant amount of purulence from his arthroscopic incisions this morning. Please see impression and plan Objective: Daptomycin 400 mg IV daily day 2 (antibiotics day 3) T-max 38.4 degrees Vital Signs Temp Pulse Resp BP Pulse Ox 36.8 C 102 H 16 119/75 93 03/17/18 07:55 03/17/18 07:55 03/17/18 07:55 03/17/18 07:55 03/17/18 07:55 Microbiology 03/14/18 17:30 Gram Stain - Final Hip - Tissue 03/14/18 16:39 Gram Stain - Final Hip - Aspirate 03/14/18 16:39 Gram Stain - Final Hip - Tissue Laboratory Results 03/14/18 04:17 03/16/18 08:50 03/16/18 03/17/18 03/18/18 05:59 05:59 05:59 Intake Total 5950 3919 Output Total 2600 2500 350 Balance 3350 1419 -350 ESR 65 MM/HR (0-15) H 03/13/18 14:49 C-Reactive Protein 220.5 mg/L (<10.0) H 03/13/18 14:49 Blood cultures March 15 x2 sets 2/4 bottles MRSA, daptomycin MEGGAN less than 1 March 17 blood cultures x2 pending - Physical Exam General Appearance: alert, no apparent distress EENT: pharynx normal, No thrush Extremities: other (Left hip continues to be swollen: Was able to express significant amount of bloody purulence from arthroscopic incisions.) Skin: No rash ICD10 Worksheet Patient Problems: Problems Problem Status Onset Septic arthritis Acute
[2018-03-17 13:42] LABS: PLATELET COUNT 234 10^3/uL (150-400)
[2018-03-17] MEDS: PANTOPRAZOLE SODIUM 40 MG TAB PO SCH (13:53)
[2018-03-17] MEDS ORDERED: BUPIVACAINE 0.25% 30 ML SDV ONE (16:38)
[2018-03-17] MEDS ORDERED: EPINEPHrine 1 MG/ML INJ ONE (16:38)
[2018-03-17] MEDS ORDERED: EPINEPHrine 30 MG/30 ML MDV (0.1 MG/0.1 ML) ONE (16:38)
--- NOTE | 2018-03-17 17:52 | PDHPUP ---
History & Physical Update H&P update statement: This history and physical update is based on an assessment of the patient which was completed after admission or registration (within 24 hours), but prior to the surgery/procedure. H&P update: H&P reviewed & patient examined, no change in patient's condition since H&P completed (Plan for repeat left hip arthroscopic irrigation and debridement.)
[2018-03-17] MEDS ORDERED: MIDAZOLAM 2 MG/2 ML VIAL ONE (18:17)
--- NOTE | 2018-03-17 18:17 | PDANEPAE ---
ANE History of Present Illness L hip I&D ANE Past Medical History - Cardiovascular History Hx Hypertension: No Hx Arrhythmias: No Hx Chest Pain: No Hx Coronary Artery / Peripheral Vascular Disease: No Hx CHF / Valvular Disease: No Hx Palpitations: No - Pulmonary History Hx COPD: No Hx Asthma/Reactive Airway Disease: No Hx Recent Upper Respiratory Infection: No Hx Oxygen in Use at Home: No Hx Sleep Apnea: No Sleep Apnea Screening Result - Last Documented: Negative - Endocrine History Hx Diabetes: No - Chronic Pain History Chronic Pain: No ANE Review of Systems Review of systems is: negative Review of Systems: - Exercise capacity METS (RN): 5 METS ANE Patient History - Allergies Allergies/Adverse Reactions: No Known Allergies Allergy (Unverified 03/13/18 14:01) - Home Medications Home medications: home medication list seen and reviewed Home Medications: Herbals/Supplements -Info Only 1 ea PO DAILY 03/13/18 [Last Taken 03/13/18] - NPO status NPO Since - Liquids (Date): 03/17/18 (light meal) NPO Since - Liquids (Time): 11:30 NPO Since - Solids (Date): 03/17/18 NPO Since - Solids (Time): 11:30 - Anes Hx Anes Hx: no prior problems - Smoking Hx Smoking Status: Never smoked - Family Anes Hx Family Anes Hx: none ANE Labs/Vital Signs - Labs Result Diagrams: 03/17/18 13:35 03/17/18 13:35 - Vital Signs Vital Signs: reviewed preoperatively; see RN documention for details Blood Pressure: 122/84 Heart Rate: 108 Respiratory Rate: 16 O2 Sat (%): 89 Height: 180.34 cm Weight: 66 kg ANE Physical Exam - Airway Neck exam: FROM Mallampati Score: Class 1 Mouth exam: normal dental/mouth exam - Pulmonary Pulmonary: no respiratory distress - Cardiovascular Cardiovascular: regular rate and rhythym - ASA Status ASA Status: II ANE Anesthesia Plan Anesthesia Plan: general endotracheal anesthesia
[2018-03-17] MEDS ORDERED: PROPOFOL 200 MG/20 ML VIAL ONE (18:20)
[2018-03-17] MEDS ORDERED: DEXAMETHASONE 4 MG/ML VIAL ONE (18:20)
[2018-03-17] MEDS ORDERED: LIDOCAINE 2% 100 MG/5 ML SYR ONE (18:20)
[2018-03-17] MEDS ORDERED: fentaNYL 250 MCG/5 ML INJ ONE (18:20)
[2018-03-17] MEDS ORDERED: ROCURONIUM 50 MG/5 ML VIAL ONE (18:20)
[2018-03-17] MEDS ORDERED: ONDANSETRON 4 MG/2 ML VIAL ONE (18:20)
[2018-03-17] MEDS ORDERED: MIDAZOLAM 2 MG/2 ML VIAL IVP ONE (19:00)
[2018-03-17] MEDS ORDERED: HYDROmorphONE/DILAUDID 2 MG/ML INJ ONE (19:57)
--- NOTE | 2018-03-17 20:53 | SUROPNOTE ---
[facility] Operative Report - Surgery OPERATION NOTE~on Rocio Esparza~ This is a second wash out on the patient. He was improving and doing well for 2 days post his first wash out and then started to go down the hill again with new onset of pus drainage from wounds. I was asked by ID to go back to OR for another wash and am agreeing with this strategy. [facility] Date of Surgery: 03/17/2018 Diagnosis: 1. Left septic hip 2. JILLIAN with labral tear and cartilage damage Operation:~2nd wash out -~Left Arthroscopic wash out of a septic hip, debridement of labral tear, extensive synovectomy Indication: Failure to obtain satisfactory results with long standing conservative measures. Surgeon: ~~~~~~~~~~Garry De La Rosa MD ~Molecular Modeler - Ama Masterson MD Anaesthetic:~~~~~General Findings~ Left Hip: Pus draining from wounds Labrum: Torn and Frayed around 12-5 O'clock. will require recon if JILLIAN scope is performed. Acetabulum: Cartilage damage grade 3-4 extending around chondrolabral junction, circumferentially, from 10 to 1, 20% rim to acatabular fossa Fovea: Reactive LT Femoral Head: frayed cartilage G1 - not much affected yet by the sepsis Synovium: severe synovitis Peripheral Compartment: Anterolateral CAM between 11 O'clock superiorly and 6 O' clock anteriorly Procedure: Using c-arm and previous portal access to the joint was done with blunt switching sticks.~ Central Compartment Intervention: Synovectomy was performed. Labral tissue was debrided at its base. Peripheral Compartment Intervention: No cam work was done at this time - despite large cam Wash was performed with 15 liters of fluid in both central and peripheral compartment~ Good seal was seen. The skin was then closed with Nylon. Padded dressing was applied. Post op instructions: 1. Full weight bearing crutches for 3 weeks 2. Pain killers as prescribed 3. Abx / ID coverage ~ Kind regards, ~~ Dr. Garry De La Rosa
[2018-03-17] MEDS: MELATONIN 3 MG TAB PO SCH (21:46)
[2018-03-18] MEDS: KETOROLAC 15 MG/1 ML SDV IVP SCH ×3 (05:26→20:57)
[2018-03-18] MEDS ORDERED: NS 500 ML IV ONE (06:26)
[2018-03-18 07:04] LABS: PLATELET COUNT 254 10^3/uL (150-400)
--- NOTE | 2018-03-18 08:13 | HOSPPROG ---
Hospitalist Progress Note Assessment/Plan: Mr Avila is a 42 y/o who presented w hip pain. This has been ongoing since March 08. * left septic hip -s/p washout and labral tear repair and second wash out on 03/[address] De La Rosa -appreciate the orthopedics team *new onset afib, at times w RVR -tx to tele -cardiology to see -reviewed tele monitor and is in afib-rate controlled *tachycardia and fevers -echo shows no vegetations -if remains febrile, may need a SUE (will discuss w ID) *sepsis due to the above *MRSA bacteremia -daptomycin -on contact precautions -CRP elevated at 220 -second set of blood cx remain + -3rd set is + *insomnia -added scheduled Melatonin and prn Restoril -much improved, rested last night *Reflux -scheduled PPI and prn Tums *hyponatremia -resolved *anemia -follow -due to acute illness *constipation -bowel protocol *stressors -has two dogs he is concerned about *Plan: tx to telemetry, appreciate cardiology seeing him Subjective: Rocio is overall feeling better today. Objective: Vital Signs Temp Pulse Resp BP Pulse Ox 36.8 C 94 19 125/87 H 97 03/18/18 07:50 03/18/18 07:50 03/18/18 07:50 03/18/18 07:50 03/18/18 07:50 Laboratory Results 03/18/18 06:40 03/18/18 06:40 03/17/18 03/18/18 03/19/18 05:59 05:59 05:59 Intake Total 3919 1573 Output Total 2500 2500 Balance 1419 -927 - Physical Exam Constitutional: appears nourished Eyes: PERRL Ears, Nose, Mouth, Throat: hearing normal Cardiovascular: irregularly irregular, No tachycardia Respiratory: no respiratory distress Gastrointestinal: normoactive bowel sounds Skin: warm, other (left hip with dressing in place, has some left thigh generalized swelling, less painful per patient), No normal color (pale) Neurologic: AAOx3 Psychiatric: interacting appropriately ICD10 Worksheet Patient Problems: Problems Problem Status Onset Septic arthritis Acute
[2018-03-18] MEDS: OXYCODONE/APAP 5/325 TAB PO PRN ×2 (08:17→16:27)
[2018-03-18] MEDS: PANTOPRAZOLE SODIUM 40 MG TAB PO SCH (08:18)
--- NOTE | 2018-03-18 08:45 | CPEKG ---
Test Reason : OPEN Blood Pressure : / mmHG Vent. Rate : 105 BPM Atrial Rate : 000 BPM P-R Int : 159 ms QRS Dur : 076 ms QT Int : 357 ms P-R-T Axes : 160 053 040 degrees QTc Int : [address] elev, probable normal early repol pattern Confirmed by Hernesto Banegas ([id number]) on 03/18/2018 8:44:58 AM Referred By: Confirmed By:Hernesto Banegas
[2018-03-18] MEDS: SENNOSIDES/DOCUSATE SODIUM TAB PO SCH ×2 (10:23→20:55)
[2018-03-18] MEDS: POLYETHYLENE GLYCOL 3350 17 GM PKT PO SCH (10:23)
[2018-03-18] MEDS: DAPTOmycin 400 MG in NS 100 ML IV SCH (10:23)
--- NOTE | 2018-03-18 11:06 | GCON ---
CARDIOLOGY CONSULT DATE OF CONSULTATION: 03/18/2018 INDICATION FOR CONSULT: Atrial fibrillation. CHIEF COMPLAINT: Sepsis/irregular heart rate. HISTORY OF PRESENT ILLNESS: This is a 42-year-old male who was admitted to [facility] approximately 5 days ago for infection, septic right hip. The patient has been treated actively by Infectious Disease, as well as Orthopedic Surgery. Patient went into atrial fibrillation apparently 24 hours ago with a ra te ranging anywhere from 80-120. Patient's blood pressure has been stable. Patient actually denies any palpitations, chest pain, or shortness of breath. Denies any history of atrial fibrillation. He does indicate that last night he could not sleep and took a sleeping pill for the first time and fel t ""extremely cool and not like himself" when he woke up. Currently, the patient's blood pressure is 127/70, with a heart rate of 92 in controlled atrial fibrillation on telemetry. The patient did have an echocardiogram performed, which showed a normal ejection fraction with no kishan dence of any endocarditis and no significant valvular abnormality. The patient denies any drug use. PAST MEDICAL HISTORY: Significant for right hip right septic arthritis diagnosed 5 days ago. SOCIAL HISTORY: The patient denies any smoking. Occasional alcohol use. No drug use. FAMILY HISTORY: Noncontributory. REVIEW OF SYSTEMS: Patient currently denies any headache. No palpitations. No visual changes. No skin changes. No palpitations. No chest pain. No shortness of breath. No abdominal pain. Does in dicate having pain and discomfort across the right hip region. No lower extremity pain. Skin is cur rently dry. Denies any new rashes. PHYSICAL EXAM: VITAL SIGNS: Current temperature 36.8, blood pressure 125/80, heart rate of 92, resp irations 12, saturating 95% on room air. HEENT: Pupils are equal, round, and reactive to light. EO Ms intact. CARDIOVASCULAR: Irregularly, irregular, S1, S2. There are no murmurs. LUNGS: Clear to auscultation bilaterally. ABDOMEN: Soft, nontender. No guarding. EXTREMITIES: There is no clubb ing, no cyanosis, edema, but there is pain upon palpation of the right hip region. NEUROLOGIC: The patient is alert x3. LABORATORY VALUES: Currently shows a white cell 8.4, hemoglobin 10.1, hematocrit 29, platelets of __ . Creatinine of 0.5, potassium 4.4. ASSESSMENT/PLAN: Atrial fibrillation. At this time, the patient is rate controlled with no medicati ons. His heart rate ranges from 80-120; however, currently is around in the 90s. Blood pressure is stable. If needed, we can certainly add in a beta tiny or calcium channel tiny for rate contro l; however, he is currently doing well with no significant cardiovascular symptoms. His CHADS2-VASc score is 0, thus no anticoagulation other than aspirin would be needed at this time. We will hold of f on aspirin currently until all surgical procedures for his hip are finished. Obviously, if the pat ient remained febrile and/or has elevated white count despite adequate antibiotic treatment for his h ip issues, consideration of SEU can be made if required. /[id number]/MODL
--- NOTE | 2018-03-18 11:43 | ASMTCMCOM ---
CM Note CM Note Notes: Today pt had a L Hip Arthroscopy, synovectomy and washout. Pt went into AFIB approximately 24 hrs ago. A phsician saw him this morning; heart rate is controlled with no meds. CM will follow. D/C Plan: [facility]. Date Signed: 03/18/2018 11:42 AM Electronically Signed By:Mara Khan
[2018-03-18] MEDS: NS 1,000 ML IV SCH (11:46)
--- NOTE | 2018-03-18 14:38 | PCMIDPN ---
Assessment/Plan: Assessment: Left hip septic arthritis secondary to MRSA. No reports of muscle discomfort. Last CPK check is within normal limits. Patient went back to surgery last night for 2nd washout. Will recheck blood cultures tomorrow morning. Plan: 1. Continue IV daptomycin as dosed. 2. Check CPK tomorrow. 3. Recheck blood cultures tomorrow. 4. Follow-up on clinical course. 03/18/18 14:36 Subjective: Patient is resting in his hospital bed. He is feeling somewhat improved. Still has of a number of social issues as an outpatient that are pre occupying him. He denies any fevers or chills. States that his left hip and thigh seem to be more swollen than his right. Objective: Daptomycin # 3 Vital Signs Temp Pulse Resp BP Pulse Ox 36.8 C 94 13 110/67 96 03/18/18 12:00 03/18/18 12:00 03/18/18 12:00 03/18/18 12:00 03/18/18 12:00 Microbiology 03/14/18 16:39 Gram Stain - Final Hip - Aspirate 03/14/18 17:30 Gram Stain - Final Hip - Tissue 03/14/18 16:39 Gram Stain - Final Hip - Tissue Laboratory Results 03/18/18 06:40 03/18/18 06:40 03/17/18 03/18/18 03/19/18 05:59 05:59 05:59 Intake Total 3919 1573 Output Total 2500 2500 Balance 1419 -927 ESR 65 MM/HR (0-15) H 03/13/18 14:49 C-Reactive Protein 220.5 mg/L (<10.0) H 03/13/18 14:49 - Physical Exam General Appearance: WD/WN, alert, no apparent distress, non-toxic Respiratory: lungs clear, normal breath sounds, No respiratory distress Cardiac/Chest: regular rate, rhythm, No tachycardia Skin: normal color, warm/dry, No rash Neuro/Psych: alert, normal mood/affect, oriented x 3 ICD10 Worksheet Patient Problems: Problems Problem Status Onset Septic arthritis Acute
--- NOTE | 2018-03-18 14:52 | ASMTCMCOM ---
CM Note CM Note Notes: Updates sent to both [facility] and [facility] in [place]. Confirmed with [facility] that their [place] branch will be accepting. D/C date unknown - patient to OR today for wash-out. CM will continue to follow. Plan: [facility] - [facility] Date Signed: 03/18/2018 02:50 PM Electronically Signed By:Mae Bell RN
[2018-03-18] MEDS: HYDROmorphONE/DILAUDID 2 MG/ML INJ IVP PRN (17:27)
[2018-03-18] MEDS: METOPROLOL TARTRATE 25 MG TAB PO SCH ×2 (17:33→20:56)
[2018-03-18] MEDS: MELATONIN 3 MG TAB PO SCH (20:57)
[2018-03-19] MEDS: ACETAMINOPHEN 325 MG TAB PO PRN ×2 (00:07→20:57)
[2018-03-19] MEDS: KETOROLAC 15 MG/1 ML SDV IVP SCH (00:21)
[2018-03-19] MEDS: oxyCODONE IR 5 MG TAB PO PRN (01:27)
[2018-03-19] MEDS: OXYCODONE/APAP 5/325 TAB PO PRN ×3 (04:58→14:21)
[2018-03-19 05:48] LABS: CREATINE KINASE 105 IU/L (0-224)
[2018-03-19] MEDS: HYDROmorphONE/DILAUDID 2 MG/ML INJ IVP PRN ×2 (06:01→10:01)
--- NOTE | 2018-03-19 07:14 | PDCARPN ---
Cardiology Progress Note Chief Complaint: c/o hip pain Assessment/Plan: Assessment: septic hip AP Plan: 03/19/18 07:13 Continue low dose BB add ASA 325 mg po qd when cleared by surgery Pt is tolerating AF w/o issues--continue rate control will follow prn, please call with any questions Subjective: c/o hip pain Reviewed/Discussed With: multidisciplinary team Time Spent with Patient: greater than 25 minutes Time Spent with Patient: Greater than 25 minutes spent on this patients care, greater than 50% of time spent counseling, educating, and coordinating care regarding the above mentioned plan. Objective: Vital Signs (8 Hrs) Temp Pulse Resp BP Pulse Ox 03/19/18 05:11 37.2 C 03/19/18 03:21 37.8 C 96 17 121/77 H 93 03/19/18 02:37 37.4 C 03/19/18 01:42 92 03/19/18 01:15 85 L Intake/Output (24 Hrs) 03/18/18 03/19/18 03/20/18 05:59 05:59 05:59 Intake Total 1573 2600 Output Total 2500 550 Balance -927 2050 Intake: Oral (ml) 860 1400 IV Intake (ml) 713 IV Infused (ml) 1200 Ns 1,000 ml @ 125 mls/hr 1200 IV CONT BOBBY Rx#: [id number] Output: Urine (ml) 2500 550 Toilet 350 Urinal 2150 550 Other: Weight 66 kg Intake Quantity Yes Sufficient Number of Voids Toilet 1 Urinal 2 1 Number of Stools Toilet 1 Result Diagrams: 03/18/18 06:40 03/18/18 06:40 - Physical Exam Constitutional: no apparent distress Ears, Nose, Mouth, Throat: moist mucous membranes Cardiovascular: irregularly irregular Peripheral Pulses: 1+: femoral (R), femoral (L) Gastrointestinal: normoactive bowel sounds Genitourinary: no suprapubic tenderness Skin: no rashes Musculoskeletal: no muscular tenderness Psychiatric: cooperative ICD10 Worksheet Patient Problems: Problems Problem Status Onset Septic arthritis Acute
[2018-03-19] MEDS ORDERED: ZOLPIDEM TARTRATE 5 MG TAB PO PRN (09:03)
--- NOTE | 2018-03-19 09:19 | HOSPPROG ---
Hospitalist Progress Note Assessment/Plan: Mr Avila is a 42 y/o who presented w hip pain. This has been ongoing since March 08. * left septic hip -s/p washout and labral tear repair and second wash out on 03/[address] De La Rosa -appreciate the orthopedics team -still draining quite a bit of fluid, able to squeeze out more drainage, serous and purulent; hip warm w redness extending toward the gluteus area and below the incisions sites -spoke with Sravan Albright, Dr De La Rosa and Dr Rodriguez; they will decide about open washout vs arthroscopic (have asked for the orthopedic surgeons to discuss best treatment for Daemian *Pain due to the above -no relief w Ruston, dc this -cont Percocet and oxy IR *new onset afib, at times w RVR/ now in sinus -will cont low dose beta tiny -appreciate cardiology seeing him *tachycardia and fevers -echo shows no vegetations -mostly resolved *sepsis due to the above *MRSA bacteremia -daptomycin -on contact precautions -CRP elevated at 220 -second set of blood cx remain + -3rd set is + -awaiting 4th set of blood cx *insomnia -had trouble sleeping last night -trial of Ambien *Reflux -scheduled PPI and prn Tums *hyponatremia -resolved *anemia -follow -due to acute illness *constipation -bowel protocol *stressors -has two dogs he is concerned about *Plan: Ambien for sleep, keep him NPO, hopefully will go to OR soon, I have kept the patient updated throughout the day about the plan of care. Subjective: Rocio couldn't sleep last night, could not get comfortable. Objective: Vital Signs Temp Pulse Resp BP Pulse Ox 37.5 C 107 H 18 138/84 H 96 03/19/18 08:00 03/19/18 08:00 03/19/18 08:00 03/19/18 08:00 03/19/18 08:00 Microbiology 03/14/18 16:39 Gram Stain - Final Hip - Aspirate 03/14/18 17:30 Gram Stain - Final Hip - Tissue 03/14/18 16:39 Gram Stain - Final Hip - Tissue Laboratory Results 03/18/18 06:40 03/18/18 06:40 03/18/18 03/19/18 03/20/18 05:59 05:59 05:59 Intake Total 1573 2600 Output Total 2958 550 850 Balance -927 2049 - Physical Exam Constitutional: uncomfortable Eyes: PERRL Ears, Nose, Mouth, Throat: hearing normal Cardiovascular: regular rate and rhythym Respiratory: no respiratory distress Gastrointestinal: normoactive bowel sounds Skin: warm, other (left hip more red, swollen, redness new and extends to the gluteus area and below the incision site, able to express serous and purulent fluid) Musculoskeletal: generalized weakness Neurologic: AAOx3 Psychiatric: interacting appropriately, anxious ICD10 Worksheet Patient Problems: Problems Problem Status Onset Septic arthritis Acute
[2018-03-19] MEDS: METOPROLOL TARTRATE 25 MG TAB PO SCH ×2 (09:35→20:30)
[2018-03-19] MEDS: POLYETHYLENE GLYCOL 3350 17 GM PKT PO SCH (09:36)
[2018-03-19] MEDS: SENNOSIDES/DOCUSATE SODIUM TAB PO SCH ×2 (09:36→20:29)
[2018-03-19] MEDS: DAPTOmycin 400 MG in NS 100 ML IV SCH (09:36)
[2018-03-19] MEDS: PANTOPRAZOLE SODIUM 40 MG TAB PO SCH (09:36)
--- NOTE | 2018-03-19 09:45 | PCMIDPN ---
Assessment/Plan: # MRSA bacteremia and L septic hip - purulence draining from incision sites today and diffuse erythema surrounding hip that was not present before. There is significant clinical progression of infection despite 2 laparoscopic washouts , including erythema L hip and ongoing tachycardia. It is my clinical impression the patient has an ongoing nidus of infection associated with his left hip that needs further washout, lean towards open washout since laparoscopic failed x 2. --daptomycin sometimes fails in the setting of high burden of bacteria, we will transition patient back to vancomycin with a loading dose 1.25 g then vancomycin continuous infusion 2.5 g IV over 24 hr. with goal random level around 25 --check vancomycin level tomorrow afternoon --appreciate Dr. Rodriguez going to open washout this afternoon --repeat blood cultures collected today to assess for clearance meds Daptomycin 400mg IV daily #4 Microbiology 03/19/18 Blood cx (2) pending 03/17/18 05:10 Blood CX (2) MRSA 03/15/18 11:40 Blood CX (2) MRSA 03/13/18 15:24 Blood CX (2) MRSA 03/14/18 16:39 Hip - Aspirate MRSA Subjective: patient very concerned about recovery from open L hip washout persistent pain L hip persistent malaise Objective: Vital Signs Temp Pulse Resp BP Pulse Ox 37.5 C 108 H 18 139/84 H 96 03/19/18 08:00 03/19/18 09:35 03/19/18 08:00 03/19/18 09:35 03/19/18 08:00 Microbiology 03/14/18 16:39 Gram Stain - Final Hip - Aspirate 03/14/18 17:30 Gram Stain - Final Hip - Tissue 03/14/18 16:39 Gram Stain - Final Hip - Tissue Laboratory Results 03/18/18 06:40 03/18/18 06:40 03/18/18 03/19/18 03/20/18 05:59 05:59 05:59 Intake Total 1573 2600 Output Total 2500 550 850 Balance -927 2050 -850 ESR 65 MM/HR (0-15) H 03/13/18 14:49 C-Reactive Protein 220.5 mg/L (<10.0) H 03/13/18 14:49 - Physical Exam General Appearance: alert, thin, non-toxic EENT: pale conjunctiva Respiratory: lungs clear, No accessory muscle use Cardiac/Chest: tachycardia, No systolic murmur Extremities: pedal edema (Left), erythema (over entire L lateral thigh, purlence easily expressed of laproscopic sites) Skin: diaphoresis, pallor, No rash Neuro/Psych: alert, normal mood/affect, oriented x 3 - Time Spent With Patient Time Spent with Patient: greater than 35 minutes Time Spent with Patient: Greater than 35 minutes spent on this patients care, greater than 50% of time spent counseling, educating, and coordinating care regarding the above mentioned plan. ICD10 Worksheet Patient Problems: Problems Problem Status Onset Septic arthritis Acute
[2018-03-19] MEDS ORDERED: FAMOTIDINE 20 MG TAB PO ONE (11:49)
[2018-03-19] MEDS ORDERED: VANCOMYCIN PHARMACY TO DOSE MISC ONE (11:49)
[2018-03-19] MEDS ORDERED: ACETAMINOPHEN 325 MG TAB PO ONE (11:49)
[2018-03-19] MEDS ORDERED: DIAZEPAM 5 MG TAB PO ONE (14:15)
[2018-03-19] MEDS ORDERED: VANCOMYCIN 1.25 GM in D5W 250 ML IV ONE (15:00)
[2018-03-19] MEDS ORDERED: ceFAZolin 1 GM/5 ML SYR ONE ×2 (15:15→17:18)
[2018-03-19] MEDS ORDERED: MIDAZOLAM 2 MG/2 ML VIAL ONE (16:19)
[2018-03-19] MEDS ORDERED: NALOXONE HCL 0.4 MG/ML INJ IVP PRN ×2 (16:25→17:02)
[2018-03-19] MEDS ORDERED: PROPOFOL/EMULSION 500 MG/50 ML BOTTLE IV ONE (16:27)
[2018-03-19] MEDS ORDERED: fentaNYL 100 MCG/2 ML INJ ONE ×2 (16:27→17:01)
[2018-03-19] MEDS ORDERED: MIDAZOLAM 2 MG/2 ML VIAL IVP ONE (16:29)
[2018-03-19] MEDS ORDERED: HYDROmorphONE/DILAUDID 2 MG/ML INJ IVP PRN (17:02)
[2018-03-19] MEDS ORDERED: fentaNYL 100 MCG/2 ML INJ IVP PRN (17:02)
[2018-03-19] MEDS ORDERED: ONDANSETRON 4 MG/2 ML VIAL IVP PRN (17:02)
[2018-03-19] MEDS ORDERED: ALBUTEROL 3 ML DEYVIAL IH PRN (17:02)
[2018-03-19] MEDS ORDERED: PROMETHAZINE HCL 25 MG/ML INJ IVP PRN (17:02)
[2018-03-19] MEDS ORDERED: LR 500 ML IV PRN (17:02)
--- NOTE | 2018-03-19 17:02 | PDANEPAE ---
ANE Past Medical History - Cardiovascular History Hx Hypertension: No Hx Arrhythmias: No Hx Chest Pain: No Hx Coronary Artery / Peripheral Vascular Disease: No Hx CHF / Valvular Disease: No Hx Palpitations: No - Pulmonary History Hx COPD: No Hx Asthma/Reactive Airway Disease: No Hx Recent Upper Respiratory Infection: No Hx Oxygen in Use at Home: No Hx Sleep Apnea: No Sleep Apnea Screening Result - Last Documented: Negative - Endocrine History Hx Diabetes: No - Chronic Pain History Chronic Pain: No ANE Review of Systems Review of Systems: - Exercise capacity METS (RN): 5 METS ANE Patient History - Allergies Allergies/Adverse Reactions: No Known Allergies Allergy (Unverified 03/13/18 14:01) - Home Medications Home Medications: Herbals/Supplements -Info Only 1 ea PO DAILY 03/13/18 [Last Taken 03/13/18] - NPO status NPO Since - Liquids (Date): 03/19/18 NPO Since - Liquids (Time): 00:00 NPO Since - Solids (Date): 03/19/18 NPO Since - Solids (Time): 09:00 - Smoking Hx Smoking Status: Never smoked ANE Labs/Vital Signs - Labs Result Diagrams: 03/18/18 06:40 03/18/18 06:40 - Vital Signs Blood Pressure: 130/78 Heart Rate: 108 Respiratory Rate: 18 O2 Sat (%): 90 Height: 180.34 cm Weight: 66 kg ANE Physical Exam - Airway Neck exam: FROM Mallampati Score: Class 1 Mouth exam: normal dental/mouth exam - Pulmonary Pulmonary: no respiratory distress, no rales or rhonchi, reduced air movement - Cardiovascular Cardiovascular: regular rate and rhythym, no murmur, rub, or gallop, pulses symmetric bilaterally, tachycardia - ASA Status ASA Status: III, E ANE Anesthesia Plan Anesthesia Plan: general endotracheal anesthesia
[2018-03-19] MEDS ORDERED: HYDROmorphONE/DILAUDID 2 MG/ML INJ ONE ×2 (17:10→19:16)
[2018-03-19] MEDS ORDERED: ROCURONIUM 50 MG/5 ML VIAL ONE (17:17)
[2018-03-19] MEDS ORDERED: NS 1,000 ML IV SCH (18:15)
--- NOTE | 2018-03-19 18:18 | POSTANESTH ---
Post Anesthetic Evaluation Cardiovascular Status: Similar to Pre-Op Cond Respiratory Status: Similar to Pre-op Cond. Level of Consciousness/Mental Status: Mildly Sleepy, Arousable Pain Control: Adequate, Prn Tx Ordered Nausea/Vomiting Control: Adequate, Prn Tx Ordered Complications Possibly Related to Anesthesia: None Noted
[2018-03-19] MEDS: VANCOMYCIN 2.5 GM in D5W 500 ML IV SCH (19:06)
[2018-03-19] MEDS: ASPIRIN EC 325 MG TAB PO SCH (20:52)
[2018-03-19] MEDS: HYDROmorphONE/DILAUDID 6 MG/30 ML PCA IV PRN (21:00)
--- NOTE | 2018-03-19 21:10 | GOP ---
DATE OF OPERATION: 03/19/2018 SURGEON: Shamar Rodriguez MD [employer] CONSULTANT: Kadeem Dominique PA-C. ANESTHESIA: General. PREOPERATIVE DIAGNOSIS: Left septic hip with extension into the gluteal musculature. POSTOPERATIVE DIAGNOSIS: Left septic hip with extension into the gluteal musculature. PROCEDURE PERFORMED: Incision and drainage, left hip through [place] Spann anterolateral approach wit h extension into the gluteal musculature posteriorly. FINDINGS: DESCRIPTION OF PROCEDURE: The patient was taken to the operating room, administered general anesthes ia, placed in the supine position. Left hip was prepped and draped in normal sterile fashion. Later al incision was made extending slightly more cephalad than normal. It was carried through dermal and subcutaneous tissues. The IP band was isolated out distally and divided over the greater trochanter . The interval between the vastus lateralis and gluteus medius was reflected anteriorly. This broug ht us down onto our anterior hip capsule. The capsule was digitally exposed and the previous rent fr om his 2 previous arthroscopies was noted. We followed this rent into the capsule. It was actually quite a large hole anteriorly. We then connected the arthroscopy portals that were more anteriorly o riented. These channels were lavaged. The hip joint itself was lavaged with 10,000 cc of saline flu id with antibiotic solution. The irrigation solution had 6 g of Ancef in total. The incision was th en extended up into the gluteal fascia posteriorly. We palpated above the acetabulum from our anteri or approach. We did not fall into a distinct purulent pocket above the acetabulum or within the glut eal muscle fascia. This whole area was thoroughly irrigated out all the way up to the ileum where th ere was increased signal. Again, no purulence was seen adjacent to the ileum. Most of the fluid did not have a milky appearance. It was more of a serous appearance. We therefore did not get new cult ures. The closure was then performed. The interval was closed between the gluteus medius and the te nsor fascia jaspreet as well as closure of the reflection of the proximal extent of the vastus lateralis. Closure of these tissues was performed with a #0 PDS suture. Closure was performed of the iliotibi al band with a #0 PDS suture. Closure of the gluteal fascia was performed with 0 PDS suture. A 2-0 PDS suture was then used to close the subcutaneous tissues, followed by salbador in the dermis. Two d rains were placed, 1 deeply that was just anterior to the hip capsule and 1 more superiorly underneat h the gluteal fascia. The drains were hooked up. A sterile compression dressing applied. The patie nt tolerated the procedure well, was transferred back to recovery in stable condition. No operative complications. COMPLICATIONS: None. /[id number]/MODL
[2018-03-20] MEDS: OXYCODONE/APAP 5/325 TAB PO PRN ×2 (01:50→12:19)
[2018-03-20] MEDS: oxyCODONE IR 5 MG TAB PO PRN ×2 (06:21→22:48)
--- NOTE | 2018-03-20 06:37 | SOAPPROG ---
SOAP Progress Note Assessment/Plan: Assessment: POD #1 S/P LEFT HIP I&D WASHOUT (Arthrotomy) performed by Dr. Rodriguez. Plan: Infectious Disease will continue to follow patient and make Antibiotic recommendations. Hospitalist team following for all other medical needs. From and Orthopedic standpoint, his pain appears moderately controlled. Keep both drains in place for another 24 hours for monitoring. PT/OT: continue WBAT with use of walker Discharge: (progressing) Pending ID and Medicine decision 03/20/18 06:34 03/20/18 06:40 Subjective: Rocio states his pain fluctuates but is currently controlled this morning. He denies any SOB, CP, Nausea or vomiting. He has not gotten out of bed to ambulate as of yet, but will try later today. Objective: Vital Signs Temp Pulse Resp BP Pulse Ox 37.9 C 99 20 110/66 99 03/19/18 23:30 03/20/18 04:00 03/20/18 04:00 03/20/18 04:00 03/20/18 04:00 Microbiology 03/17/18 05:10 Blood Culture - Final Blood MRSA 03/17/18 05:18 Blood Culture - Final Blood MRSA 03/14/18 17:30 Gram Stain - Final Hip - Tissue 03/14/18 16:39 Gram Stain - Final Hip - Tissue 03/14/18 16:39 Gram Stain - Final Hip - Aspirate 03/14/18 17:30 Mycobacterial Smear (MEGGAN) - Final Hip - Tissue 03/14/18 16:39 Mycobacterial Smear (MEGGAN) - Final Hip - Tissue 03/14/18 16:39 Mycobacterial Smear (MEGGAN) - Final Hip - Aspirate Laboratory Results 03/18/18 06:40 03/18/18 06:40 03/19/18 03/20/18 03/21/18 05:59 05:59 05:59 Intake Total 2600 2161 Output Total 550 4255 Balance 2049 -2093 Physical Exam LLE Bandage present, clean and dry. 2 bulb drains present, functioning well. Minimal fluid (bloody serosanguineous appearance) this AM (as it was previously emptied) Moves foot/ankle well. Distal neurovascular intact. ICD10 Worksheet Patient Problems: Problems Problem Status Onset Septic arthritis Acute
[2018-03-20 06:53] LABS: PLATELET COUNT 290 10^3/uL (150-400)
[2018-03-20] MEDS: SENNOSIDES/DOCUSATE SODIUM TAB PO SCH ×2 (08:25→20:52)
[2018-03-20] MEDS: POLYETHYLENE GLYCOL 3350 17 GM PKT PO SCH (08:25)
[2018-03-20] MEDS: PANTOPRAZOLE SODIUM 40 MG TAB PO SCH (08:25)
[2018-03-20] MEDS: METOPROLOL TARTRATE 25 MG TAB PO SCH ×2 (08:30→20:52)
--- NOTE | 2018-03-20 08:54 | PCMIDPN ---
Assessment/Plan: # MRSA bacteremia and L septic hip - s/p open washout last night. Febrile overnight and increased wbc not unexpected post op. MRI showed possible early OM of L iliac wing and femoral head but intra-op these areas did not appear infected --vanco level this afternoon, goal around 25 --repeat blood cultures tomorrow --reviewed reasons for antibiotic changes w patient --would probably error on side of caution and treat for 6 weeks w MRI findings --contact precautions meds vancomycin 2.5gm ggt #1 Microbiology 03/19/18 Blood cx (2) GPC 03/17/18 05:10 Blood CX (2) MRSA 03/15/18 11:40 Blood CX (2) MRSA 03/13/18 15:24 Blood CX (2) MRSA 03/14/18 16:39 Hip - Aspirate MRSA Subjective: pain well controlled today, pain less than he expected Objective: Vital Signs Temp Pulse Resp BP Pulse Ox 37.8 C 115 H 18 103/58 L 96 03/20/18 07:37 03/20/18 08:30 03/20/18 07:37 03/20/18 08:30 03/20/18 07:37 Microbiology 03/17/18 05:10 Blood Culture - Final Blood MRSA 03/17/18 05:18 Blood Culture - Final Blood MRSA 03/14/18 17:30 Gram Stain - Final Hip - Tissue 03/14/18 16:39 Gram Stain - Final Hip - Tissue 03/14/18 16:39 Gram Stain - Final Hip - Aspirate 03/14/18 17:30 Mycobacterial Smear (MEGGAN) - Final Hip - Tissue 03/14/18 16:39 Mycobacterial Smear (MEGGAN) - Final Hip - Tissue 03/14/18 16:39 Mycobacterial Smear (MEGGAN) - Final Hip - Aspirate Laboratory Results 03/20/18 06:40 03/20/18 06:40 03/19/18 03/20/18 03/21/18 05:59 05:59 05:59 Intake Total 2600 2161 Output Total 550 4255 225 Balance 0 -2093 -225 ESR 65 MM/HR (0-15) H 03/13/18 14:49 C-Reactive Protein 220.5 mg/L (<10.0) H 03/13/18 14:49 - Physical Exam General Appearance: alert, no apparent distress, other (appears more vigorous today) EENT: pale conjunctiva, No scleral icterus Respiratory: lungs clear, No accessory muscle use Neck: supple Cardiac/Chest: tachycardia Extremities: pedal edema (L leg), other (L hip surgical dressings in place, 2 CATHY drains w serosang fluid) Skin: No rash Neuro/Psych: alert, normal mood/affect, oriented x 3 - Time Spent With Patient Time Spent with Patient: greater than 35 minutes Time Spent with Patient: Greater than 35 minutes spent on this patients care, greater than 50% of time spent counseling, educating, and coordinating care regarding the above mentioned plan. ICD10 Worksheet Patient Problems: Problems Problem Status Onset Septic arthritis Acute
[2018-03-20] MEDS: HYDROmorphONE/DILAUDID 6 MG/30 ML PCA IV PRN (09:19)
--- NOTE | 2018-03-20 10:29 | HOSPPROG ---
Hospitalist Progress Note Assessment/Plan: 42yo M with left hip septic arthritis complicating MRSA bacteremia. 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 - Continue low dose metoprolol - [id number], no indication for AC #Hyponatremia: Mild, monitor. #Transaminitis: Mild, likely r/t sepsis. Recheck in a few days. #Anemia: Normocytic. R/t inflammation, procedural blood loss. No indication for transfusion. #Insomnia: Ambien qhs Diet: regular VTE ppx: aspirin per ortho Code: full Dispo: Remain inpatient. Transfer to med/surg floor. 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 Had fever overnight after surgery, rather expected. Objective: Vital Signs Temp Pulse Resp BP Pulse Ox 37.8 C 115 H 18 103/58 L 96 03/20/18 07:37 03/20/18 08:30 03/20/18 07:37 03/20/18 08:30 03/20/18 07:37 Microbiology 03/17/18 05:10 Blood Culture - Final Blood MRSA 03/17/18 05:18 Blood Culture - Final Blood MRSA 03/14/18 17:30 Gram Stain - Final Hip - Tissue 03/14/18 16:39 Gram Stain - Final Hip - Tissue 03/14/18 16:39 Gram Stain - Final Hip - Aspirate 03/14/18 17:30 Mycobacterial Smear (MEGGAN) - Final Hip - Tissue 03/14/18 16:39 Mycobacterial Smear (MEGGAN) - Final Hip - Tissue 03/14/18 16:39 Mycobacterial Smear (MEGGAN) - Final Hip - Aspirate Laboratory Results 03/20/18 06:40 03/20/18 06:40 03/19/18 03/20/18 03/21/18 05:59 05:59 05:59 Intake Total 2600 2161 Output Total 444 1594 225 Balance 2049 - Physical Exam Constitutional: no apparent distress, appears nourished, not in pain Eyes: PERRL, anicteric sclera, EOMI Ears, Nose, Mouth, Throat: moist mucous membranes, hearing normal, ears appear normal, no oral mucosal ulcers Cardiovascular: no murmur, rub, or gallop, tachycardia (regular), No edema Respiratory: no respiratory distress, no rales or rhonchi, clear to auscultation Gastrointestinal: normoactive bowel sounds, soft, non-tender abdomen, no palpable masses Skin: no rashes or abrasions, no fluctuance, no induration, other (left surgical site, did not undress) Musculoskeletal: full muscle strength, no muscle tenderness, normal joint ROM Neurologic: AAOx3, sensation intact bilaterally Psychiatric: interacting appropriately, not anxious, not encephalopathic, thought process linear ICD10 Worksheet Patient Problems: Problems Problem Status Onset Septic arthritis Acute
[2018-03-20] MEDS: ASPIRIN EC 325 MG TAB PO SCH (12:19)
[2018-03-20] MEDS: ACETAMINOPHEN 325 MG TAB PO PRN (17:06)
[2018-03-20] MEDS: VANCOMYCIN 2.5 GM in D5W 500 ML IV SCH (18:26)
[2018-03-20] MEDS ORDERED: VANCOMYCIN IV SCH (19:30)
[2018-03-20] MEDS ORDERED: D5W IV SCH (19:30)
[2018-03-21] MEDS: ACETAMINOPHEN 325 MG TAB PO PRN ×3 (00:38→23:59)
[2018-03-21] MEDS: HYDROmorphONE/DILAUDID 6 MG/30 ML PCA IV PRN ×2 (00:39→17:56)
[2018-03-21] MEDS: oxyCODONE IR 5 MG TAB PO PRN ×4 (05:56→18:39)
[2018-03-21] MEDS: PANTOPRAZOLE SODIUM 40 MG TAB PO SCH (07:54)
[2018-03-21] MEDS: ASPIRIN EC 325 MG TAB PO SCH (07:54)
[2018-03-21] MEDS: METOPROLOL TARTRATE 25 MG TAB PO SCH ×2 (07:55→20:22)
[2018-03-21] MEDS: SENNOSIDES/DOCUSATE SODIUM TAB PO SCH ×2 (07:56→20:22)
--- NOTE | 2018-03-21 07:57 | SOAPPROG ---
SOAP Progress Note Assessment/Plan: Assessment: POD #2 S/P LEFT HIP I&D WASHOUT (Arthrotomy) performed by Dr. Rodriguez. Due to Bacteremia and left septic hip. Plan: From ortho standpoint, encourage ambulation. Drains present. Infectious Disease will continue to follow patient. He is currently on Vanco. He has had a fever overnight and this AM. Hospitalist team following for all other medical needs. From and Orthopedic standpoint, his pain appears moderately controlled. Keep both drains in place for another 24 hours for monitoring. Will have them pulled tomorrow 03/22 PT/OT: continue WBAT with use of walker Discharge: (progressing) Pending ID and Medicine decision 03/20/18 06:34 03/20/18 06:40 03/21/18 07:53 Subjective: He is in good spirit. Pain has been moderately controlled. He denies any SOB, or CP. He was a bit concerned from being transferred to a different level of care yesterday. Objective: Vital Signs Temp Pulse Resp BP Pulse Ox 39.6 C H 104 H 14 119/86 H 95 03/21/18 07:28 03/21/18 07:28 03/21/18 07:28 03/21/18 07:28 03/21/18 07:28 Microbiology 03/14/18 17:30 Gram Stain - Final Hip - Tissue 03/14/18 16:39 Gram Stain - Final Hip - Tissue 03/14/18 16:39 Gram Stain - Final Hip - Aspirate 03/15/18 11:40 Blood Culture - Final Blood MRSA 03/15/18 11:40 Blood Culture - Final Blood MRSA Laboratory Results 03/21/18 05:00 03/21/18 05:00 03/20/18 03/21/18 03/22/18 05:59 05:59 05:59 Intake Total 2161 3795 Output Total 8152 4755 Balance -1754 -518 PHYSICAL EXAM LLE Dressing pressent, clean and dry. 2 drains present with moderate amount of fluid. 5/5 DF/PF of ankle. SLightly able to leg raise. Distal neurovasculature intact. ICD10 Worksheet Patient Problems: Problems Problem Status Onset Septic arthritis Acute
[2018-03-21] MEDS ORDERED: VANCOMYCIN IV SCH (12:00)
[2018-03-21] MEDS ORDERED: D5W IV SCH (12:00)
[2018-03-21] MEDS: POLYETHYLENE GLYCOL 3350 17 GM PKT PO SCH (12:16)
[2018-03-21] MEDS: ONDANSETRON 4 MG/2 ML VIAL IVP PRN (14:14)
--- NOTE | 2018-03-21 14:39 | ASMTCMCOM ---
CM Note CM Note Notes: Pt had washout yesterday. D/c plan plan remains d/c home with [facility] and 01/01 [facility]. Date Signed: 03/21/2018 02:39 PM Electronically Signed By:SHINE Chand
--- NOTE | 2018-03-21 15:40 | HOSPPROG ---
Hospitalist Progress Note Assessment/Plan: 42yo M with left hip septic arthritis complicating MRSA bacteremia. 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 He continued to fever overnight but no rising leukocytosis. - Repeat blood cultures today. If remain negative, plan for PICC placement #Sepsis: Re-fevered with mild leukocytosis. - Monitor fever curve, WBC, abx as above #Atrial fibrillation: In setting of infection. - Continue low dose metoprolol - [id number], no indication for AC #Hyponatremia: Mild, monitor. #Transaminitis: Mild, likely r/t sepsis. Recheck in a few days. #Anemia: Normocytic. R/t inflammation, procedural blood loss. No indication for transfusion. #Insomnia: Ambien qhs Diet: regular VTE ppx: aspirin per ortho Code: full Dispo: Remain inpatient. Once cultures cleared, needs PICC. Subjective: Had rough night after moving from icu to floor, didn't get oral pain meds in time. But feeling better today. Pain controlled. No BM. Drains still putting out a bit. Did well with PT. Objective: Vital Signs Temp Pulse Resp BP Pulse Ox 37.1 C 85 16 107/69 99 03/21/18 12:35 03/21/18 12:35 03/21/18 12:35 03/21/18 12:35 03/21/18 12:35 Microbiology 03/14/18 17:30 Gram Stain - Final Hip - Tissue 03/14/18 16:39 Gram Stain - Final Hip - Tissue 03/14/18 16:39 Gram Stain - Final Hip - Aspirate 03/19/18 04:40 Blood Culture - Final Blood MRSA 03/15/18 11:40 Blood Culture - Final Blood MRSA 03/15/18 11:40 Blood Culture - Final Blood MRSA Laboratory Results 03/21/18 05:00 03/21/18 05:00 03/20/18 03/21/18 03/22/18 05:59 05:59 05:59 Intake Total 2161 3795 Output Total 3310 2665 3651 Banner -[phone] -[phone] -[phone] - Physical Exam Constitutional: no apparent distress, appears nourished, not in pain Eyes: PERRL, anicteric sclera, EOMI Ears, Nose, Mouth, Throat: moist mucous membranes, hearing normal, ears appear normal, no oral mucosal ulcers Cardiovascular: regular rate and rhythym, no murmur, rub, or gallop Respiratory: no respiratory distress, no rales or rhonchi, clear to auscultation Gastrointestinal: normoactive bowel sounds, soft, non-tender abdomen, no palpable masses Skin: other (left hip incision with dressings in place, 2 drains with serosanginous output) Neurologic: AAOx3, sensation intact bilaterally Psychiatric: interacting appropriately, not anxious, not encephalopathic, thought process linear ICD10 Worksheet Patient Problems: Problems Problem Status Onset Septic arthritis Acute
--- NOTE | 2018-03-21 16:31 | PCMIDPN ---
Assessment/Plan: # MRSA bacteremia and L septic hip - s/p open washout last night. Febrile overnight and increased wbc not unexpected post op. MRI showed possible early OM of L iliac wing and femoral head but intra-op these areas did not appear infected --vanco level now is 19, goal around 25, will increase vancomycin dose slightly 5 g continuous infusion and recheck random level tomorrow. Will also check creatinine tomorrow --repeat blood cultures pending --ideally would like to send out on continuous infusion vancomycin if insurance allows --would treat for 6 weeks due to MRI finding showing early osteomyelitis --transthoracic echo negative for endocarditis, no murmur has developed, SUE will not change duration of therapy. meds vancomycin 4.5gm ggt #2 Microbiology 03/19/18 Blood cx (2) GPC 03/17/18 05:10 Blood CX (2) MRSA 03/15/18 11:40 Blood CX (2) MRSA 03/13/18 15:24 Blood CX (2) MRSA 03/14/18 16:39 Hip - Aspirate MRSA Subjective: Patient is doing quite well with minimal pain associated with his left hip, ambulating with walker No diarrhea, no rash, feeling a lot stronger since open washout Objective: Vital Signs Temp Pulse Resp BP Pulse Ox 37.1 C 85 16 107/69 99 03/21/18 12:35 03/21/18 12:35 03/21/18 12:35 03/21/18 12:35 03/21/18 12:35 Microbiology 03/14/18 17:30 Gram Stain - Final Hip - Tissue 03/14/18 16:39 Gram Stain - Final Hip - Tissue 03/14/18 16:39 Gram Stain - Final Hip - Aspirate 03/19/18 04:40 Blood Culture - Final Blood MRSA 03/15/18 11:40 Blood Culture - Final Blood MRSA 03/15/18 11:40 Blood Culture - Final Blood MRSA Laboratory Results 03/21/18 05:00 03/21/18 05:00 03/20/18 03/21/18 03/22/18 05:59 05:59 05:59 Intake Total 2161 3795 Output Total 4255 4530 1350 Balance -2094 -735 -1350 ESR 65 MM/HR (0-15) H 03/13/18 14:49 C-Reactive Protein 220.5 mg/L (<10.0) H 03/13/18 14:49 - Physical Exam General Appearance: alert, no apparent distress EENT: No scleral icterus Respiratory: No accessory muscle use Extremities: other (Left hip dressing still in place, 2 CATHY drains full of serosanguineous fluid, patient moving left leg well without difficulty) Skin: pallor, No diaphoresis, No rash Neuro/Psych: alert, normal mood/affect, oriented x 3 - Time Spent With Patient Time Spent with Patient: greater than 35 minutes (Reviewed reasons for IV vancomycin, high metabolism of vancomycin, advantages and disadvantages of vancomycin versus daptomycin, MRSA pathophysiology with patient and his mother) Time Spent with Patient: Greater than 35 minutes spent on this patients care, greater than 50% of time spent counseling, educating, and coordinating care regarding the above mentioned plan. ICD10 Worksheet Patient Problems: Problems Problem Status Onset Septic arthritis Acute
[2018-03-21] MEDS: VANCOMYCIN IV SCH (17:55)
[2018-03-21] MEDS: D5W IV SCH (17:55)
[2018-03-21] MEDS: METHOCARBAMOL 500 MG TAB PO PRN (18:29)
[2018-03-21] MEDS: HYDROmorphONE/DILAUDID 2 MG TAB PO PRN (20:21)
[2018-03-21] MEDS ORDERED: LORazepam 2 MG/ML INJ IVP PRN (21:34)
[2018-03-22] MEDS: HYDROmorphONE/DILAUDID 6 MG/30 ML PCA IV PRN (03:46)
--- NOTE | 2018-03-22 06:48 | SOAPPROG ---
SOAP Progress Note Assessment/Plan: Assessment: POD #3 S/P LEFT HIP I&D WASHOUT (Arthrotomy) performed by Dr. Rodriguez. Due to Bacteremia and left septic hip. Plan: From ortho standpoint, encourage ambulation. Drains to be removed today. Infectious Disease will continue to manage patient. He is currently on Vanco. He has had a fever overnight which has resolve with Tylenol. Hospitalist team following for all other medical needs. From and Orthopedic standpoint, his pain appears moderately controlled. PT/OT: continue WBAT with use of walker Discharge: (progressing) Pending ID and Medicine decision. 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 Dilaudid was on board PO and his pain was controlled. He denies any CP, SOB, Nausea/Vomiting currently. He is very tired. Objective: Vital Signs Temp Pulse Resp BP Pulse Ox 37.3 C 90 14 116/73 97 03/22/18 04:00 03/22/18 04:00 03/22/18 04:00 03/22/18 04:00 03/22/18 04:00 Microbiology 03/14/18 17:30 Gram Stain - Final Hip - Tissue 03/14/18 16:39 Gram Stain - Final Hip - Tissue 03/14/18 16:39 Gram Stain - Final Hip - Aspirate 03/19/18 04:40 Blood Culture - Final Blood MRSA Laboratory Results 03/22/18 04:47 03/22/18 04:47 03/21/18 03/22/18 03/23/18 05:59 05:59 05:59 Intake Total 7460 4003 Output Total 0314 4285 Balance -735 -1102 PHYSICAL EXAM LLE Dressing present and clean/dry Drains show mild output (bloody) Moves ankle well. Distal Neurovasculature intact. ICD10 Worksheet Patient Problems: Problems Problem Status Onset Septic arthritis Acute
[2018-03-22] MEDS: METHOCARBAMOL 500 MG TAB PO PRN ×3 (08:37→21:57)
[2018-03-22] MEDS: SENNOSIDES/DOCUSATE SODIUM TAB PO SCH ×2 (08:37→22:06)
[2018-03-22] MEDS: HYDROmorphONE/DILAUDID 2 MG TAB PO PRN ×4 (08:37→21:56)
[2018-03-22] MEDS: METOPROLOL TARTRATE 25 MG TAB PO SCH ×2 (08:39→22:03)
[2018-03-22] MEDS: ASPIRIN EC 325 MG TAB PO SCH (08:40)
[2018-03-22] MEDS: PANTOPRAZOLE SODIUM 40 MG TAB PO SCH (08:40)
[2018-03-22] MEDS: POLYETHYLENE GLYCOL 3350 17 GM PKT PO SCH (09:25)
[2018-03-22] MEDS: ACETAMINOPHEN 325 MG TAB PO PRN ×2 (12:40→21:59)
--- NOTE | 2018-03-22 14:29 | HOSPPROG ---
Hospitalist Progress Note Assessment/Plan: 42yo M with left hip septic arthritis complicating MRSA bacteremia. #MRSA bacteremia: Cultures persistently positive and have not cleared. - On continuous infusion vancomycin, goal random level 25 which we are checking today - Repeat cultures in AM. 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 - Monitor fever curve, WBC, abx as above #Atrial fibrillation: In setting of infection. - Continue low dose metoprolol - [id number], no indication for AC #Hyponatremia: Mild, monitor. #Transaminitis: Mild, likely r/t sepsis. Recheck every few days. #Anemia: Normocytic. R/t inflammation, procedural blood loss. No indication for transfusion. #Insomnia: Ambien qhs Diet: regular VTE ppx: aspirin per ortho Code: full Dispo: Remain inpatient. Once cultures cleared, needs PICC. Subjective: Continued to fever, blood cultures + again, pain last night. Not thinking clearly at times when taking pain meds. 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 Objective: Vital Signs Temp Pulse Resp BP Pulse Ox 38.3 C 100 14 126/74 H 90 L 03/22/18 12:00 03/22/18 12:00 03/22/18 12:00 03/22/18 12:00 03/22/18 12:00 Microbiology 03/14/18 17:30 Gram Stain - Final Hip - Tissue 03/14/18 16:39 Gram Stain - Final Hip - Tissue 03/14/18 16:39 Gram Stain - Final Hip - Aspirate 03/19/18 04:40 Blood Culture - Final Blood MRSA 03/19/18 04:40 Blood Culture - Final Blood MRSA Laboratory Results 03/22/18 04:47 03/22/18 04:47 10/11/18 10/12/18 10/13/18 05:59 05:59 05:59 Intake Total 7198 4004 Output Total 0796 5105 450 [facility] -553 -[phone] -450 - Physical Exam Constitutional: no apparent distress, appears nourished, not in pain Eyes: PERRL, anicteric sclera, EOMI Ears, Nose, Mouth, Throat: moist mucous membranes, hearing normal, ears appear normal, no oral mucosal ulcers Cardiovascular: regular rate and rhythym, no murmur, rub, or gallop Respiratory: no respiratory distress, no rales or rhonchi, clear to auscultation Gastrointestinal: normoactive bowel sounds, soft, non-tender abdomen, no palpable masses Skin: other (left hip incision viewed, looks good) Neurologic: AAOx3, sensation intact bilaterally Psychiatric: interacting appropriately, not anxious, not encephalopathic, thought process linear ICD10 Worksheet Patient Problems: Problems Problem Status Onset Septic arthritis Acute
--- NOTE | 2018-03-22 14:44 | ASMTCMCOM ---
CM Note CM Note Notes: Updates sent to 01/01 C and Amteresata in [employer]. Pt cultures to clear then he will get picc, picc report to be sent to [facility] when available. Pt likely d/c on Vanco continuous infusion. CM to follow. D/c plan of care: Home with [facility] and [facility] Date Signed: 03/22/2018 02:43 PM Electronically Signed By:SHINE Chand
--- NOTE | 2018-03-22 16:17 | PCMIDPN ---
Assessment/Plan: Assessment/Plan: * High-grade MRSA bacteremia due to left hip septic arthritis status post laparoscopic washout x2 and open washout x1: Persistent high-grade bacteremia with blood cultures from 03/21/2018 growing within 24 hr. Hope will see bacteremia resolve post open washout and with continuous infusion of vancomycin. Will repeat blood cultures in a.m.. If fails to clear bacteremia, have concerned he will require additional washout of hip as would be concerned about ongoing need for source control with potential persistent focus of infection in hip. Await repeat random vancomycin level after dose increase in continuous infusion (currently 5 g per 24 hr). Clinical findings and plan discussed with patient, mother, nursing staff, and Dr. Vallejo. Time spent, greater than 35 min, which greater than half was spent in education/ counseling/coordination of care related to high-grade MRSA bacteremia and septic arthritis of left hip. 03/22/18 16:14 Subjective: Patient with decreased left hip pain. Pain control better with oral Dilaudid. Objective: Vital Signs Temp Pulse Resp BP Pulse Ox 38.3 C 100 14 126/74 H 90 L 03/22/18 12:00 03/22/18 12:00 03/22/18 12:00 03/22/18 12:00 03/22/18 12:00 Microbiology 03/14/18 17:30 Gram Stain - Final Hip - Tissue 03/14/18 16:39 Gram Stain - Final Hip - Tissue 03/14/18 16:39 Gram Stain - Final Hip - Aspirate 03/19/18 04:40 Blood Culture - Final Blood MRSA 03/19/18 04:40 Blood Culture - Final Blood MRSA Laboratory Results 03/22/18 04:47 03/22/18 04:47 03/21/18 03/22/18 03/23/18 05:59 05:59 05:59 Intake Total 3795 4003 Output Total 4530 5105 450 Balance -735 -1102 -450 ESR 65 MM/HR (0-15) H 03/13/18 14:49 C-Reactive Protein 256.0 mg/L (<10.0) H 03/22/18 04:47 Vancomycin by continuous infusion # 3 Blood cultures 03/21/2018 2/2 MRSA MRI of hip consistent with osteomyelitis of the left iliac wing and femoral head - Physical Exam General Appearance: alert, no apparent distress EENT: No scleral icterus, No thrush, No conjunctival petechiae Respiratory: lungs clear, No respiratory distress Cardiac/Chest: regular rate, rhythm, No systolic murmur Extremities: inflammation (Left hip staple line intact; no surrounding erythema ; scant serous drainage from inferior incision; CATHY bulb x2 1 of which has seropurulent output and 1 of which has serosanguineous output) Abdomen: non-tender, No distended Skin: No embolic lesions ICD10 Worksheet Patient Problems: Problems Problem Status Onset Septic arthritis Acute
[2018-03-22] MEDS: VANCOMYCIN IV SCH (17:45)
[2018-03-22] MEDS: D5W IV SCH (17:45)
[2018-03-23] MEDS: HYDROmorphONE/DILAUDID 2 MG TAB PO PRN ×5 (02:05→18:29)
[2018-03-23] MEDS: ACETAMINOPHEN 325 MG TAB PO PRN ×3 (05:21→21:18)
[2018-03-23] MEDS: METHOCARBAMOL 500 MG TAB PO PRN ×2 (08:17→14:57)
[2018-03-23] MEDS: SENNOSIDES/DOCUSATE SODIUM TAB PO SCH ×2 (08:17→23:57)
[2018-03-23] MEDS: METOPROLOL TARTRATE 25 MG TAB PO SCH ×2 (08:18→21:19)
[2018-03-23] MEDS: PANTOPRAZOLE SODIUM 40 MG TAB PO SCH (08:18)
[2018-03-23] MEDS: ASPIRIN EC 325 MG TAB PO SCH (08:18)
[2018-03-23] MEDS: POLYETHYLENE GLYCOL 3350 17 GM PKT PO SCH (08:20)
[2018-03-23] MEDS: LIDOCAINE 4%/MENTHOL 1% PATCH TD PRN (08:22)
[2018-03-23] MEDS: PATCH REMOVAL 1 EA PATCH TD SCH (10:07)
--- NOTE | 2018-03-23 10:50 | ASMTCMCOM ---
CM Note CM Note Notes: CM met with pt upon his request. Pt and mother expressed frustration and upset with the care he is receiving at [facility] related to his pain management. Pt had multiple complaints re his knowledge of what the medication plan is, his belief that the nurses do not give him what is ordered, that when he receives pain meds they are often late and that nurses are not available during shift changes. He requested a mtg with today's hospitalist to discuss these concerns and develop a pain medication strategy. He also indicated that the Ativan he was given last night caused him to hallucinate. Message was sent through [employer] to todays hospitalist re pt's concerns. It was recommended to nursing staff that he be offered the patient's advocate phone number if he continues to voice concern. D/C Plan: [facility] 01/01 Date Signed: 03/23/2018 10:49 AM Electronically Signed By:Mara Khan
--- NOTE | 2018-03-23 13:07 | HOSPPROG ---
Hospitalist Progress Note Assessment/Plan: 42yo M with left hip septic arthritis, MRSA bacteremia. #MRSA sepsis/bacteremia: Cultures persistently positive, new set done today - On continuous infusion vancomycin per ID -discussed care plan today with Dr Leach - Needs PICC once cultures clear #Left hip septic arthritis, gluteal myositis: s/p open washout with Dr Rodriguez on 03/19, had laparoscopic washouts on 03/14 and 03/17 - revwd pain med options, DROP[employer] T[employer] STORAGE vs add on a long acting (he preferred the latter) - PT/OT, WBAT with walker - Removed 1 drain 03/22, keeping 2nd drain as has purulent material draining from it - Abx as above -discussed care plan with ortho #Atrial fibrillation: In setting of infection. - Continue low dose metoprolol - [id number], no indication for AC #Hyponatremia -a little lower today, NS bolus #Transaminitis: Mild, likely r/t sepsis. Recheck every few days. #Anemia: Normocytic. R/t inflammation, procedural blood loss -no indication for transfusion but will watch for stability -start PO iron #low BMI -appreciate letter of credit clerk input -MVI/b complex -nutrition supplements as able #anxiety -stopped ambien and ativan at his request -seemed much more calm/less anxious after our encounter PCP Diet: regular VTE ppx: aspirin per ortho Code: full Dispo: > 48 hrs because of ongoing bacteremia Subjective: Mom in the room. Both are very upset about pain meds as he is a 9/ 10 today. Also, he felt very disoriented last nt, 'never wants ativan or ambien ' again. Denies n/v/abd pain/SOB. Objective: Vital Signs Temp Pulse Resp BP Pulse Ox 98.7 F 92 18 102/78 92 03/23/18 12:00 03/23/18 12:00 03/23/18 12:00 03/23/18 12:00 03/23/18 12:00 Microbiology 03/14/18 17:30 Gram Stain - Final Hip - Tissue 03/14/18 16:39 Gram Stain - Final Hip - Tissue 03/14/18 16:39 Gram Stain - Final Hip - Aspirate 03/19/18 04:40 Blood Culture - Final Blood MRSA Laboratory Results 03/23/18 04:40 03/23/18 04:40 03/22/18 03/23/18 03/24/18 11:59 11:59 11:59 Intake Total 4005 600 Output Total 7678 5444 Balance -252 -2345 - Time Spent With Patient Time Spent with Patient: greater than 35 minutes Time Spent with Patient: Greater than 35 minutes spent on this patients care, greater than 50% of time spent counseling, educating, and coordinating care regarding the above mentioned plan. - Physical Exam Constitutional: no apparent distress, uncomfortable Eyes: anicteric sclera Ears, Nose, Mouth, Throat: moist mucous membranes, hearing normal Cardiovascular: regular rate and rhythym, No edema Respiratory: no respiratory distress, no rales or rhonchi, clear to auscultation Gastrointestinal: normoactive bowel sounds, soft, non-tender abdomen Skin: warm Psychiatric: interacting appropriately, not anxious, not encephalopathic, thought process linear ICD10 Worksheet Patient Problems: Problems Problem Status Onset Septic arthritis Acute
[2018-03-23] MEDS: oxyCODONE CR 15 MG TAB PO SCH ×2 (13:31→21:18)
[2018-03-23] MEDS: D5W IV SCH (17:01)
[2018-03-23] MEDS: VANCOMYCIN IV SCH (17:01)
--- NOTE | 2018-03-23 17:16 | PCMIDPN ---
Assessment/Plan: Assessment/Plan: * High-grade MRSA bacteremia due to left hip septic arthritis status post laparoscopic washout x2 and open washout x1: Persistent high-grade bacteremia with blood cultures from 03/21/2018 growing within 24 hr. Repeat blood cultures are pending to assess for clearing of bacteremia. Has persistent leukocytosis which is trending upwards rather than downwards. Reviewed with Dr. Rodriguez regarding potential need for additional washout if bacteremia fails to clear. Will repeat MRI of left hip (reassess bony changes or for muscular abscess) and also obtain MRI of pelvis given new complaint of coccygeal pain. Continue vancomycin by continuous infusion. Repeat random level in a.m. with goal level between 20-30. If above unrevealing, will need SUE to ensure no evidence of endocarditis although no murmur noted on exam. Time spent, greater than 35 min, which greater than half was spent in education/ counseling/coordination of care related to high-grade MRSA bacteremia and septic arthritis of left hip as well as ongoing plan of care including continued vancomycin therapy and repeat imaging. 03/23/18 17:13 Subjective: Patient complains of left-sided low back pain which he thinks may have occurred when he became disoriented after taking sleeping a last p.m.. Notes drainage from left hip. No rigors. Was able to walk today with PT. Objective: Vital Signs Temp Pulse Resp BP Pulse Ox 36.3 C 95 14 118/71 97 03/23/18 16:00 03/23/18 16:00 03/23/18 16:00 03/23/18 16:00 03/23/18 16:00 Microbiology 03/14/18 17:30 Gram Stain - Final Hip - Tissue 03/14/18 16:39 Gram Stain - Final Hip - Tissue 03/14/18 16:39 Gram Stain - Final Hip - Aspirate Laboratory Results 03/23/18 04:40 03/23/18 04:40 03/22/18 03/23/18 03/24/18 05:59 05:59 05:59 Intake Total 4003 600 Output Total 5105 3030 500 Balance -1102 -2430 -500 ESR 65 MM/HR (0-15) H 03/13/18 14:49 C-Reactive Protein 256.0 mg/L (<10.0) H 03/22/18 04:47 Vancomycin by continuous infusion # 4 Blood cultures x2 03/21/2018 2/2 MRSA Blood cultures x2 03/23/2018 pending T-max 38.9 degrees (03/22/2018 at 2000) - Physical Exam General Appearance: alert, no apparent distress, non-toxic EENT: No scleral icterus, No conjunctival petechiae Respiratory: lungs clear, No respiratory distress Cardiac/Chest: regular rate, rhythm, No systolic murmur Extremities: other (Left hip with serous drainage on dressing but no expressible drainage from incision; seropurulent output in CATHY bulb; no tenderness overlying hip joint) Abdomen: non-tender, No distended Back: other (Tender in lower lumbosacral region and to left of lower lumbosacral region) Skin: No embolic lesions ICD10 Worksheet Patient Problems: Problems Problem Status Onset Septic arthritis Acute
--- NOTE | 2018-03-23 17:29 | SOAPPROG ---
SOAP Progress Note Assessment/Plan: Assessment: POD #4 S/P LEFT HIP I&D WASHOUT (Arthrotomy) performed by Dr. Rodriguez. Due to Bacteremia and left septic hip. Plan: From ortho standpoint, encourage ambulation. Keep single drain present for observation per ID. Infectious Disease will continue to manage patient. He is currently on Vanco. New Blood cultures taken this AM. Will asses if growth tomorrow. PICC line planned to be placed once bacteremia clears. Another hip washout may be warranted if no sign of improvement. Hospitalist team following for all other medical needs. From and Orthopedic standpoint, his pain appears moderately controlled, although he is still unhappy about pain management. PT/OT: continue WBAT with use of walker Discharge: (progressing) Pending ID and Medicine decision. 03/23/18 17:25 03/23/18 17:29 Subjective: He appears to be doing well, motivated, and in less pain. Discussed the potential need for another hip washout surgery if bacteremia does not clear. He understood. He denies any SOB, CH, or N/V. Objective: Vital Signs Temp Pulse Resp BP Pulse Ox 36.3 C 95 14 118/71 97 03/23/18 16:00 03/23/18 16:00 03/23/18 16:00 03/23/18 16:00 03/23/18 16:00 Microbiology 03/14/18 17:30 Gram Stain - Final Hip - Tissue 03/14/18 16:39 Gram Stain - Final Hip - Tissue 03/14/18 16:39 Gram Stain - Final Hip - Aspirate Laboratory Results 03/23/18 04:40 03/23/18 04:40 03/22/18 03/23/18 03/24/18 05:59 05:59 05:59 Intake Total 4003 600 Output Total 5105 3030 500 Balance -1102 -2430 -500 PHYSICAL EXAM LLU Dressing removed. Incision well approximated. No drainage actively. No erythema noted. New dressing applied. Moves leg well. Distal neurovasculature intact Drain has moderate cloudy yellow drainage present. ICD10 Worksheet Patient Problems: Problems Problem Status Onset Septic arthritis Acute
[2018-03-23] MEDS ORDERED: diphenhydrAMINE 50 MG CAP PO PRN (18:13)
[2018-03-23] MEDS ORDERED: NS 500 ML IV ONE (21:16)
--- NOTE | 2018-03-23 22:19 | HOSPPROG ---
Hospitalist Progress Note Assessment/Plan: Called by RN for sepsis trigger, heart rate 120, respirations greater than 20, fever, patient was experiencing pain at that time. -evaluated patient at bedside, he is currently nontoxic appearing, pain is better managed, has received Tylenol and pain medications -check venous lactic acid level as he remains tachycardic and has high-grade MRSA bacteremia -give 500 cc normal saline bolus and increase continuous fluid rate up to 150 per hour, as the patient is very thirsty and is most likely experiencing insensible losses in the setting of ongoing infection -reviewed progress notes, vancomycin level currently within therapeutic range at 21 -additional MRI as currently ordered to evaluate for ongoing harbored source of infection, particularly the pelvic area where the patient is experiencing what he describes as a "popping" sensation located in his left hip with changes in position -if MRI does not demonstrate harbored source of infection, then SUE would be next step in workup Objective: Vital Signs Temp Pulse Resp BP Pulse Ox 39.3 C H 113 H 21 H 139/91 H 96 03/23/18 20:00 03/23/18 21:19 03/23/18 20:00 03/23/18 21:19 03/23/18 20:00 Laboratory Results 03/23/18 04:40 03/23/18 04:40 03/22/18 03/23/18 03/24/18 05:59 05:59 05:59 Intake Total 4003 600 Output Total 0910 3030 535 [facility] -1102 -2430 -535 ICD10 Worksheet Patient Problems: Problems Problem Status Onset Septic arthritis Acute
[2018-03-24] MEDS: HYDROmorphONE/DILAUDID 2 MG TAB PO PRN ×4 (04:53→22:03)
[2018-03-24] MEDS: METHOCARBAMOL 500 MG TAB PO PRN ×2 (04:54→22:00)
[2018-03-24] MEDS: NS 1,000 ML IV SCH ×2 (04:56→10:17)
[2018-03-24 05:46] LABS: PLATELET COUNT 516 10^3/uL (150-400)
[2018-03-24] MEDS: ACETAMINOPHEN 325 MG TAB PO PRN ×2 (08:08→22:00)
[2018-03-24] MEDS: oxyCODONE CR 15 MG TAB PO SCH (08:40)
[2018-03-24] MEDS ORDERED: GADOBUTROL 10 ML VIAL IVP ONE (09:22)
[2018-03-24] MEDS: FERROUS SULFATE 140 MG TAB.ER PO SCH (10:49)
[2018-03-24] MEDS: MULTIVITAMINS 1 EACH TAB PO SCH (10:49)
[2018-03-24] MEDS: ASPIRIN EC 325 MG TAB PO SCH (10:49)
[2018-03-24] MEDS: SENNOSIDES/DOCUSATE SODIUM TAB PO SCH (10:50)
[2018-03-24] MEDS: VITAMIN B COMPLEX 1 EA CAP/TAB PO SCH (10:50)
[2018-03-24] MEDS: POLYETHYLENE GLYCOL 3350 17 GM PKT PO SCH (10:50)
[2018-03-24] MEDS: MAGNESIUM HYDROXIDE 30 ML UDCUP PO SCH (10:51)
[2018-03-24] MEDS: METOPROLOL TARTRATE 25 MG TAB PO SCH ×2 (10:56→22:01)
[2018-03-24] MEDS: PANTOPRAZOLE SODIUM 40 MG TAB PO SCH (10:56)
[2018-03-24] MEDS: PATCH REMOVAL 1 EA PATCH TD SCH (11:38)
--- NOTE | 2018-03-24 11:47 | HOSPPROG ---
Hospitalist Progress Note Assessment/Plan: 42yo M with left hip septic arthritis, MRSA bacteremia. #MRSA sepsis/bacteremia: Cultures persistently positive, new set done yesterday already + - On continuous infusion vancomycin per ID -revwd MRI findings -discussed care plan with Dr Barba and Dr Rodriguez's PA -will be going to OR again for washout - Needs PICC once cultures clear #Left hip septic arthritis, gluteal myositis: s/p open washout with Dr Rodriguez on 03/19, had laparoscopic washouts on 03/14 and 03/17 - continue with longacting oxy CR, dilaudid prn - PT/OT, WBAT with walker - Removed 1 drain 03/22, keeping 2nd drain as has purulent material draining from it - Abx as above -discussed care plan with ortho, back to OR today as above #Atrial fibrillation: In setting of infection. - Continue low dose metoprolol - [id number], no indication for AC #Hyponatremia -stable #Transaminitis: Mild, likely r/t sepsis. Recheck every few days. #Anemia: Normocytic. R/t inflammation, procedural blood loss -discussed transfusion with him, he signed paperwork but only agrees to a transfusion in an emergency at this time #low BMI -appreciate senior media buyer input -MVI/b complex/iron -nutrition supplements as able #anxiety -much more calm overall today PCP-has seen [facility] one time, but not planning to return there for care Diet: regular VTE ppx: aspirin per ortho Code: full Dispo: > 48 hrs because of ongoing bacteremia Subjective: Pain a little better but now requesting scheduled short acting dilaudid. Also, mom wants him to take silver and other supplements. Al advised her all supplements need to be OKd by hospitalist/pharmacy and she should NOT just bring to room. Also, as he is going to surgery later- suggest addressing pain afterwards, no change currently. Both seemed OK with this. He denies n/v. Had a loose stool. Objective: Vital Signs Temp Pulse Resp BP Pulse Ox 99.9 F 109 H 24 H 137/83 H 93 03/24/18 10:15 03/24/18 07:39 03/24/18 07:39 03/24/18 07:39 03/24/18 07:39 Laboratory Results 03/24/18 04:30 03/24/18 06:22 03/22/18 03/23/18 03/24/18 11:59 11:59 11:59 Intake Total 4007 600 Output Total 1991 9728 770 [facility] -234 -2930 -770 - Physical Exam Constitutional: no apparent distress, chronically ill appearing Eyes: anicteric sclera Ears, Nose, Mouth, Throat: moist mucous membranes, hearing normal Cardiovascular: regular rate and rhythym, No edema Respiratory: no respiratory distress, no rales or rhonchi, clear to auscultation Skin: warm, normal color Psychiatric: interacting appropriately, not anxious, not encephalopathic, thought process linear ICD10 Worksheet Patient Problems: Problems Problem Status Onset Septic arthritis Acute
--- NOTE | 2018-03-24 11:56 | PCMIDPN ---
Assessment/Plan: Assessment: Left hip septic arthritis secondary to MRSA. Bacteremia with persistence. MRI from this morning showed gluteal abscesses. Patient will return back to the OR for debridement. Currently on vancomycin drip and tolerating without problem. Plan: 1. Continue IV Vancomycin by 24 hr drip. 2. follow up on OR course. 3. Recheck blood cultures after 24 hr. Subjective: Patient is sitting up in his hospital bed preparing to go to surgery. He feels well. Denies any new complaint. No fevers or chills. Objective: Vancomycin # 5 Vital Signs Temp Pulse Resp BP Pulse Ox 37.7 C 109 H 24 H 137/83 H 93 03/24/18 10:15 03/24/18 07:39 03/24/18 07:39 03/24/18 07:39 03/24/18 07:39 Laboratory Results 03/24/18 04:30 03/24/18 06:22 03/23/18 03/24/18 03/25/18 05:59 05:59 05:59 Intake Total 600 Output Total 3030 735 535 Balance -2430 -735 -535 ESR 65 MM/HR (0-15) H 03/13/18 14:49 C-Reactive Protein 256.0 mg/L (<10.0) H 03/22/18 04:47 - Physical Exam General Appearance: WD/WN, alert, no apparent distress, thin Respiratory: lungs clear, normal breath sounds, No respiratory distress Cardiac/Chest: regular rate, rhythm, No tachycardia Skin: normal color, warm/dry, No rash Neuro/Psych: alert, normal mood/affect, oriented x 3 ICD10 Worksheet Patient Problems: Problems Problem Status Onset Septic arthritis Acute
--- NOTE | 2018-03-24 12:04 | PDCONSULT ---
Slip Caster Note: Asesment: Left Septic Hip Plan: After discussion with Patient, ID, Ortho, and Medicine team, we feel it will be best to do another Left Hip Arthrotomy I&D. We will plan to do surgery at 1:00pm today 03/24, and surgeon will be Dr. Shamar Rodriguez (Orthopedics) Risks and Benefits were discussed with patient, and consent for procedure was signed. Kadeem Dominique PA-C for attending Dr. Rodriguez
[2018-03-24] MEDS ORDERED: VANCOMYCIN 1 GM VIAL ONE ×2 (12:24→14:21)
[2018-03-24] MEDS ORDERED: MIDAZOLAM 2 MG/2 ML VIAL ONE (13:04)
[2018-03-24] MEDS ORDERED: PROPOFOL/EMULSION 500 MG/50 ML BOTTLE IV ONE (13:05)
[2018-03-24] MEDS ORDERED: fentaNYL 100 MCG/2 ML INJ ONE ×2 (13:05→15:19)
--- NOTE | 2018-03-24 13:27 | PDANEPAE ---
ANE Past Medical History - Cardiovascular History Hx Hypertension: No Hx Arrhythmias: No Hx Chest Pain: No Hx Coronary Artery / Peripheral Vascular Disease: No Hx CHF / Valvular Disease: No Hx Palpitations: No - Pulmonary History Hx COPD: No Hx Asthma/Reactive Airway Disease: No Hx Recent Upper Respiratory Infection: No Hx Oxygen in Use at Home: No Hx Sleep Apnea: No Sleep Apnea Screening Result - Last Documented: Negative - Endocrine History Hx Diabetes: No - Chronic Pain History Chronic Pain: No ANE Review of Systems Review of Systems: - Exercise capacity METS (RN): 5 METS ANE Patient History - Allergies Allergies/Adverse Reactions: No Known Allergies Allergy (Unverified 03/13/18 14:01) - Home Medications Home Medications: Herbals/Supplements -Info Only 1 ea PO DAILY 03/13/18 [Last Taken 03/13/18] - NPO status NPO Since - Liquids (Date): 03/24/18 NPO Since - Liquids (Time): 00:00 NPO Since - Solids (Date): 03/24/18 NPO Since - Solids (Time): 04:00 - Smoking Hx Smoking Status: Never smoked ANE Labs/Vital Signs - Labs Result Diagrams: 03/24/18 04:30 03/24/18 06:22 - Vital Signs Blood Pressure: 126/78 Heart Rate: 99 Respiratory Rate: 14 O2 Sat (%): 96 Height: 180.34 cm Weight: 69.6 kg ANE Physical Exam - Airway Neck exam: FROM Mallampati Score: Class 1 Mouth exam: normal dental/mouth exam - Pulmonary Pulmonary: no respiratory distress, no rales or rhonchi, clear to auscultation - Cardiovascular Cardiovascular: regular rate and rhythym, no murmur, rub, or gallop, tachycardia - ASA Status ASA Status: III ANE Anesthesia Plan Anesthesia Plan: general endotracheal anesthesia
[2018-03-24] MEDS ORDERED: ONDANSETRON 4 MG/2 ML VIAL ONE (13:30)
[2018-03-24] MEDS ORDERED: CALCIUM CHLORIDE 1 GM/10 ML INJ ONE (13:30)
[2018-03-24] MEDS ORDERED: ROCURONIUM 50 MG/5 ML VIAL ONE ×2 (13:30→13:36)
[2018-03-24] MEDS ORDERED: SUGAMMADEX SODIUM 200 MG/2 ML VIAL IVP ONE ×3 (13:30→14:48)
[2018-03-24] MEDS ORDERED: NALOXONE HCL 0.4 MG/ML INJ IVP PRN (13:33)
[2018-03-24] MEDS ORDERED: ALBUTEROL 3 ML DEYVIAL IH PRN (13:33)
[2018-03-24] MEDS ORDERED: DIAZEPAM 5 MG/ML 1 ML SYR IVP PRN (13:33)
[2018-03-24] MEDS ORDERED: NS 500 ML IV PRN (13:33)
[2018-03-24] MEDS ORDERED: ONDANSETRON 4 MG/2 ML VIAL IVP PRN (13:33)
[2018-03-24] MEDS ORDERED: GLYCOPYRROLATE 0.2 MG/1 ML VIAL ONE (14:48)
[2018-03-24] MEDS ORDERED: NEOSTIGMINE METHYLSULFATE 5 MG/5 ML SYR ONE (14:48)
--- NOTE | 2018-03-24 15:19 | GOP ---
DATE OF OPERATION: 03/23/2018 SURGEON: Shamar Rodriguez MD ANESTHESIA: General. PREOPERATIVE DIAGNOSIS: 1. Left septic hip. 2. Abscess, left iliacus muscle (pelvis). POSTOPERATIVE DIAGNOSIS: PROCEDURE PERFORMED: 1. Incision and drainage, left septic hip. 2. Incision and drainage abscess, left iliacus muscle (inner wall pelvis). FINDINGS: DESCRIPTION OF PROCEDURE: The patient was taken to the operating room, administered general anesthes ia, placed in the right lateral decubitus position, and had his left hip and lower extremity prepped and draped in normal sterile fashion. The previous hip incision was extended proximally and opened u p distally. It was carried through dermal and subcutaneous tissues. The IT band was divided. We ex tended up through the gluteal fascia proximally up over the iliac crest. The irrigation was performe d superficially before we went down through the iliotibial band. Once through the iliotibial band we went through the interval between gluteus medius and vastus lateralis insertions. These were reflec nishi again in line with the previous reflection. The anterior hip capsule had been previously opened. This was still open. Thorough lavage was performed of the hip. Cultures were taken of the space u nderneath the fascia that communicated with the anterior hip. Cultures were also taken where we diss ected on the retroperitoneal space on the medial wall of the ilium. The copious irrigation was perfo rmed of the hip with saline solution with 1 g of vancomycin per 3000 cc bag. The interval on the med ial wall of the ilium was spread bluntly. We did get into an abscess in that area. This was aspirat ed. We then irrigated copiously with several thousand cubic centimeters of normal saline solution wi th vancomycin added. The wound was then peppered with 2 g of vancomycin powder. The anterior hip ca psule was closed with a #2 PDS suture followed by closure of the interval between gluteus medius and vastus lateralis with a #2 PDS suture followed by closure of the iliotibial band with a #2 PDS suture followed by closure of the subcutaneous tissues with a 2-0 PDS suture followed by closure of the marilia mis with salbador. The drain placed in the iliacus muscle over the iliac crest was hooked up. The dr jovan placed distally. This communicated with the hip joint and was hooked up. The patient tolerated procedure well and was transferred back to recovery in stable condition. No operative complications. COMPLICATIONS: None. /[id number]/MODL
[2018-03-24] MEDS: fentaNYL 100 MCG/2 ML INJ IVP PRN ×2 (15:21→15:30)
--- NOTE | 2018-03-24 15:28 | POSTANESTH ---
Post Anesthetic Evaluation Cardiovascular Status: Normal, Stable, Similar to Pre-Op Cond Respiratory Status: Normal, Stable, Similar to Pre-op Cond. Level of Consciousness/Mental Status: Moderately Sleepy Pain Control: Adequate, Prn Tx Ordered Nausea/Vomiting Control: Adequate, Prn Tx Ordered Complications Possibly Related to Anesthesia: None Noted
[2018-03-24] MEDS ORDERED: HYDROmorphONE/DILAUDID 1 MG/ML INJ ONE (15:36)
[2018-03-24] MEDS: HYDROmorphONE/DILAUDID 2 MG/ML INJ IVP PRN ×6 (15:38→16:40)
[2018-03-24] MEDS ORDERED: HYDROmorphONE/DILAUDID 2 MG/ML INJ ONE (15:59)
[2018-03-24] MEDS: D5W IV SCH (16:57)
[2018-03-24] MEDS: VANCOMYCIN IV SCH (16:57)
[2018-03-25] MEDS: HYDROmorphONE/DILAUDID 2 MG TAB PO PRN ×5 (02:11→22:28)
[2018-03-25] MEDS: METHOCARBAMOL 500 MG TAB PO PRN ×3 (03:05→18:58)
--- NOTE | 2018-03-25 07:10 | SOAPPROG ---
SOAP Progress Note Assessment/Plan: Assessment: POD #1 S/P LEFT HIP I&D RE-WASHOUT (Arthrotomy) performed by Dr. Rodriguez. Due to Bacteremia and left septic hip, and failed Sx and Abx Treatment. Plan: From ortho standpoint, encourage bed rest for the next 24 hours. He may get up occasionally, but no PT/OT today. Keep drains present for observation per ID. Infectious Disease will continue to manage patient. He is currently on Vanco. Will asses if growth of blood cultures. PICC line planned to be placed once bacteremia clears. Another hip washout may be warranted if no sign of improvement. Hospitalist team following for all other medical needs. From and Orthopedic standpoint, his pain appears moderately controlled PT/OT: continue WBAT with use of walker, rest for the next 24 hours Discharge: (progressing) Pending ID and Medicine decision. 03/25/18 07:07 Subjective: Daemian states his pain is under control, however very present. He denies any SOB, CP, N/V. He appears in good spirit. Objective: Vital Signs Temp Pulse Resp BP Pulse Ox 37.1 C 92 19 115/66 99 03/25/18 02:57 03/25/18 02:57 03/25/18 02:57 03/25/18 02:57 03/25/18 02:57 Microbiology 03/24/18 13:40 Gram Stain - Final Hip - Eswab 03/24/18 14:04 Gram Stain - Final Abdomen - Eswab Laboratory Results 03/25/18 04:30 03/24/18 18:10 03/24/18 03/25/18 03/26/18 05:59 05:59 05:59 Intake Total 1300 Output Total 354 2975 425 Balance 735 -1775 -425 PHYSICAL EXAM LLU Bandage and dressing clean and dry. 2 drains present, recently emptied. Moves foot and leg well. Distal neurovasculature intact. ICD10 Worksheet Patient Problems: Problems Problem Status Onset Septic arthritis Acute
--- NOTE | 2018-03-25 08:45 | HOSPPROG ---
Hospitalist Progress Note Assessment/Plan: Mr Avila is a 42 y/o who presented w hip pain. This has been ongoing since March 08. #MRSA sepsis/bacteremia: Cultures persistently positive -continuous vancomycin -will eventually need a PICC once cultures cleared #Left hip septic arthritis, gluteal myositis: s/p open washout with Dr Rodriguez on 03/19, had laparoscopic washouts on 03/14 and 03/17 -went to OR again on 03/24 s/p Left hip I & D and washout -has two large drains in place #Pain -due to the above, on long acting narcotics #Atrial fibrillation: In setting of infection. - Continue low dose metoprolol - [id number], no indication for AC #Hyponatremia -stable #Transaminitis: Mild, likely r/t sepsis. Recheck every few days. #Anemia: Normocytic. R/t inflammation, procedural blood loss -wants to avoid it if possible, will cont close monitoring #low BMI -dietary seeing him #anxiety -much more calm overall today #DVT prophylaxis: athrombic pumps, has had several surgeries; may need LMWH in the future, has ongoing anemia; will hold at this time Subjective: Rocio said his pain is well controlled. Objective: Vital Signs Temp Pulse Resp BP Pulse Ox 37.9 C 96 19 130/80 H 98 03/25/18 07:32 03/25/18 07:32 03/25/18 07:32 03/25/18 07:32 03/25/18 07:32 Microbiology 03/24/18 13:40 Gram Stain - Final Hip - Eswab 03/24/18 14:04 Gram Stain - Final Abdomen - Eswab Laboratory Results 03/25/18 04:30 03/24/18 18:10 03/24/18 03/25/18 03/26/18 05:59 05:59 05:59 Intake Total 1300 Output Total 396 9646 814 Balance -775 -0765 -425 - Physical Exam Constitutional: no apparent distress, other (thin) Eyes: PERRL Ears, Nose, Mouth, Throat: hearing normal Cardiovascular: regular rate and rhythym Respiratory: no respiratory distress Gastrointestinal: normoactive bowel sounds Skin: other (left hip w large dressing in place, two large el drains w small amount of serous drainage) Neurologic: AAOx3 Psychiatric: flat affect ICD10 Worksheet Patient Problems: Problems Problem Status Onset Septic arthritis Acute
[2018-03-25] MEDS: PANTOPRAZOLE SODIUM 40 MG TAB PO SCH (08:47)
[2018-03-25] MEDS: MULTIVITAMINS 1 EACH TAB PO SCH (08:47)
[2018-03-25] MEDS: VITAMIN B COMPLEX 1 EA CAP/TAB PO SCH (08:47)
[2018-03-25] MEDS: ASPIRIN EC 325 MG TAB PO SCH (08:48)
[2018-03-25] MEDS: METOPROLOL TARTRATE 25 MG TAB PO SCH ×2 (08:48→21:13)
[2018-03-25] MEDS: FERROUS SULFATE 140 MG TAB.ER PO SCH (08:49)
[2018-03-25] MEDS: MAGNESIUM HYDROXIDE 30 ML UDCUP PO SCH (08:49)
[2018-03-25] MEDS: SENNOSIDES/DOCUSATE SODIUM TAB PO SCH ×2 (08:52→21:13)
--- NOTE | 2018-03-25 11:11 | ASMTCMCOM ---
CM Note CM Note Notes: Patient is POD #1 L hip I&D and re-washout. Ortho has recommended 24 hours of rest (no PT/OT). PICC to be placed when cultures clear. Discharge plan continues to be home with [facility] for infusion and 01/01 for RN. Case Management will follow. Date Signed: 03/25/2018 11:10 AM Electronically Signed By:Sindhu Go RN
[2018-03-25] MEDS: PATCH REMOVAL 1 EA PATCH TD SCH (12:26)
[2018-03-25] MEDS: POLYETHYLENE GLYCOL 3350 17 GM PKT PO SCH (12:26)
--- NOTE | 2018-03-25 14:57 | PCMIDPN ---
Assessment/Plan: Assessment: Left hip septic arthritis secondary to MRSA. Bacteremia with persistence. To OR for deeper debridement yesterday. Procedure was successful. Patient feels much improved and notes fever curve is reduced. Currently on vancomycin drip and tolerating without problem. Plan: 1. Continue IV Vancomycin by 24 hr drip. 2. follow up on OR cultures. 3. Recheck blood cultures today. 03/25/18 14:54 Subjective: Patient is doing well today. No new complaints. Objective: Vancomycin by constant gtt # 6 Vital Signs Temp Pulse Resp BP Pulse Ox 38.0 C 91 19 117/74 99 03/25/18 11:53 03/25/18 11:53 03/25/18 11:53 03/25/18 11:53 03/25/18 11:53 Microbiology 03/14/18 17:30 Gram Stain - Final Hip - Tissue 03/14/18 16:39 Gram Stain - Final Hip - Tissue 03/14/18 16:39 Gram Stain - Final Hip - Aspirate 03/24/18 13:40 Gram Stain - Final Hip - Eswab 03/24/18 14:04 Gram Stain - Final Abdomen - Eswab Laboratory Results 03/25/18 04:30 03/24/18 18:10 03/24/18 03/25/18 03/26/18 05:59 05:59 05:59 Intake Total 1300 Output Total 735 3075 1125 Balance -735 -1775 -1125 ESR 65 MM/HR (0-15) H 03/13/18 14:49 C-Reactive Protein 256.0 mg/L (<10.0) H 03/22/18 04:47 - Physical Exam General Appearance: WD/WN, alert, no apparent distress, non-toxic Cardiac/Chest: regular rate, rhythm, No tachycardia Extremities: No normal inspection, No erythema Skin: normal color, warm/dry, No rash Neuro/Psych: alert, normal mood/affect, oriented x 3 ICD10 Worksheet Patient Problems: Problems Problem Status Onset Septic arthritis Acute
[2018-03-25] MEDS: LIDOCAINE 4%/MENTHOL 1% PATCH TD PRN (17:00)
[2018-03-25] MEDS: VANCOMYCIN IV SCH (17:01)
[2018-03-25] MEDS: D5W IV SCH (17:01)
[2018-03-26] MEDS: METHOCARBAMOL 500 MG TAB PO PRN ×4 (02:40→23:24)
[2018-03-26] MEDS: HYDROmorphONE/DILAUDID 2 MG TAB PO PRN ×6 (02:40→23:24)
[2018-03-26] MEDS: ACETAMINOPHEN 325 MG TAB PO PRN ×2 (05:06→09:16)
[2018-03-26] MEDS: FERROUS SULFATE 140 MG TAB.ER PO SCH (09:01)
[2018-03-26] MEDS: METOPROLOL TARTRATE 25 MG TAB PO SCH ×2 (09:01→20:28)
[2018-03-26] MEDS: MULTIVITAMINS 1 EACH TAB PO SCH (09:02)
[2018-03-26] MEDS: VITAMIN B COMPLEX 1 EA CAP/TAB PO SCH (09:02)
[2018-03-26] MEDS: SENNOSIDES/DOCUSATE SODIUM TAB PO SCH ×2 (09:02→20:28)
[2018-03-26] MEDS: ASPIRIN EC 325 MG TAB PO SCH (09:03)
[2018-03-26] MEDS: PANTOPRAZOLE SODIUM 40 MG TAB PO SCH (09:06)
[2018-03-26] MEDS: PATCH REMOVAL 1 EA PATCH TD SCH (09:07)
[2018-03-26] MEDS: MAGNESIUM HYDROXIDE 30 ML UDCUP PO SCH (09:07)
[2018-03-26] MEDS: POLYETHYLENE GLYCOL 3350 17 GM PKT PO SCH (09:07)
--- NOTE | 2018-03-26 11:38 | HOSPPROG ---
Hospitalist Progress Note Assessment/Plan: Mr Avila is a 42 y/o who presented w hip pain. This has been ongoing since March 08. #MRSA sepsis/bacteremia: Cultures persistently positive -continuous vancomycin -will eventually need a PICC once cultures cleared -blood cx from Mar 25 are pending #Left hip septic arthritis, gluteal myositis: s/p open washout with Dr Rodriguez on 03/19, had laparoscopic washouts on 03/14 and 03/17 -went to OR again on 03/24 s/p Left hip I & D and washout -has two large drains in place #Pain -due to the above, on long acting narcotics -has no pain during my interview #Atrial fibrillation: In setting of infection. - Continue low dose metoprolol - [id number], no indication for AC #Hyponatremia -Na 130 #Transaminitis: Mild, likely r/t sepsis. Recheck every few days. #Anemia: Normocytic. -spoke w Rocio about a transfusion, he declines at this time, wants to see if the food his mom brings in helps, ok w oral iron, will add vitamin C for absorption. He has been light headed. Will continue monitoring. #low BMI -dietary seeing him #anxiety -calm #DVT prophylaxis: athrombic pumps, has had several surgeries; may need LMWH in the future, has ongoing anemia; will hold at this time Subjective: Rocio has no c/o pain, feeling lightheaded while sitting in the chair. Shared he had a bad nightmare during the night. Objective: Vital Signs Temp Pulse Resp BP Pulse Ox 36.8 C 93 18 119/74 97 03/26/18 08:00 03/26/18 09:01 03/26/18 08:00 03/26/18 09:01 03/26/18 08:00 Microbiology 03/14/18 17:30 Gram Stain - Final Hip - Tissue 03/14/18 16:39 Gram Stain - Final Hip - Tissue 03/14/18 16:39 Gram Stain - Final Hip - Aspirate 03/21/18 05:15 Blood Culture - Final Blood MRSA 03/21/18 05:00 Blood Culture - Final Blood MRSA 03/24/18 14:04 Gram Stain - Final Abdomen - Eswab 03/24/18 13:40 Gram Stain - Final Hip - Eswab Laboratory Results 03/26/18 04:40 03/26/18 04:45 03/25/18 03/26/18 03/27/18 05:59 05:59 05:59 Intake Total 1300 4799 Output Total 3075 4540 1000 Balance -1775 259 -1000 - Physical Exam Constitutional: no apparent distress, other (thin) Eyes: PERRL Ears, Nose, Mouth, Throat: hearing normal Cardiovascular: regular rate and rhythym Respiratory: no respiratory distress Skin: warm, other (left hip in dressing (patient in the chair) CATHY's with serous beige drainage), No normal color (pale) Musculoskeletal: generalized weakness Neurologic: AAOx3 Psychiatric: interacting appropriately ICD10 Worksheet Patient Problems: Problems Problem Status Onset Septic arthritis Acute
[2018-03-26] MEDS: D5W IV SCH (16:23)
[2018-03-26] MEDS: ASCORBIC ACID 500 MG TAB PO SCH (16:23)
[2018-03-26] MEDS: VANCOMYCIN IV SCH (16:23)
--- NOTE | 2018-03-26 17:05 | PCMIDPN ---
Assessment/Plan: # MRSA bacteremia and L septic hip and pyomyositis/left iliacus abscess s/p multiple washout, most recently 03/24/18. Cx from OR still positive --will continue to monitor blood cultures --may wait until 03/28 to put in PICC due to history of persistent bacteremia --check labs tomorrow including random vancomycin level --hopeful for dc 03/28 --okay'd supplements # Intermittent delirium: explained this is due to narcotic, desires this to be tapered. passed on to hospitalists meds vancomycin 5gm ggt Microbiology 03/25/18 Blood cx (2) pending 03/24/18 culture from Hip & iliacus abscess: MRSA, vancomycin MEGGAN equal 1 03/19/18 Blood cx (2) MRSA 03/17/18 05:10 Blood CX (2) MRSA 03/15/18 11:40 Blood CX (2) MRSA 03/13/18 15:24 Blood CX (2) MRSA 03/14/18 16:39 Hip - Aspirate MRSA Care coordinated with Rosalie Schaefer [employer] Subjective: feeling much better c/o delirium at night Objective: Vital Signs Temp Pulse Resp BP Pulse Ox 37.1 C 110 H 14 132/89 H 95 03/26/18 16:00 03/26/18 16:00 03/26/18 16:00 03/26/18 16:00 03/26/18 16:00 Microbiology 03/24/18 14:04 Gram Stain - Final Abdomen - Eswab 03/24/18 13:40 Gram Stain - Final Hip - Eswab 03/14/18 17:30 Mycobacterial Smear (MEGGAN) - Final Hip - Tissue 03/14/18 16:39 Mycobacterial Smear (MEGGAN) - Final Hip - Tissue 03/14/18 16:39 Mycobacterial Smear (MEGGAN) - Final Hip - Aspirate 03/14/18 17:30 Gram Stain - Final Hip - Tissue 03/14/18 16:39 Gram Stain - Final Hip - Tissue 03/14/18 16:39 Gram Stain - Final Hip - Aspirate 03/21/18 05:15 Blood Culture - Final Blood MRSA 03/21/18 05:00 Blood Culture - Final Blood MRSA Laboratory Results 03/26/18 04:40 03/26/18 04:45 10/15/18 10/16/18 10/17/18 05:59 05:59 05:59 Intake Total 1300 4799 Output Total 3075 4540 1000 Balance -1775 259 -1000 ESR 65 MM/HR (0-15) H 03/13/18 14:49 C-Reactive Protein 256.0 mg/L (<10.0) H 03/22/18 04:47 - Physical Exam General Appearance: no apparent distress Respiratory: No accessory muscle use Neck: supple Cardiac/Chest: tachycardia Extremities: swelling (L hip), other (14 in incision L flank, hip, thigh, slight pinkness surrounding, no drainage from wound 2 large C[address] drains in place with serosang fluid, mild warmth), No pedal edema Peripheral Pulses: 1+: dorsalis-pedis (R), dorsalis-pedis (L) Abdomen: non-tender, soft Skin: No rash Neuro/Psych: alert, normal mood/affect, oriented x 3 - Time Spent With Patient Time Spent with Patient: greater than 35 minutes Time Spent with Patient: Greater than 35 minutes spent on this patients care, greater than 50% of time spent counseling, educating, and coordinating care regarding the above mentioned plan. ICD10 Worksheet Patient Problems: Problems Problem Status Onset Septic arthritis Acute
[2018-03-27] MEDS: HYDROmorphONE/DILAUDID 2 MG TAB PO PRN (03:22)
[2018-03-27 04:53] LABS: PLATELET COUNT 690 10^3/uL (150-400)
[2018-03-27] MEDS: ASPIRIN EC 325 MG TAB PO SCH (07:26)
[2018-03-27] MEDS: PANTOPRAZOLE SODIUM 40 MG TAB PO SCH (07:26)
[2018-03-27] MEDS: MAGNESIUM HYDROXIDE 30 ML UDCUP PO SCH (07:26)
[2018-03-27] MEDS: VITAMIN B COMPLEX 1 EA CAP/TAB PO SCH (07:27)
[2018-03-27] MEDS: ASCORBIC ACID 500 MG TAB PO SCH (07:27)
[2018-03-27] MEDS: FERROUS SULFATE 140 MG TAB.ER PO SCH (07:27)
[2018-03-27] MEDS: SENNOSIDES/DOCUSATE SODIUM TAB PO SCH ×2 (07:27→20:08)
[2018-03-27] MEDS: METHOCARBAMOL 500 MG TAB PO PRN ×3 (07:27→21:14)
[2018-03-27] MEDS: MULTIVITAMINS 1 EACH TAB PO SCH (07:28)
[2018-03-27] MEDS: POLYETHYLENE GLYCOL 3350 17 GM PKT PO SCH (07:28)
[2018-03-27] MEDS: METOPROLOL TARTRATE 25 MG TAB PO SCH ×2 (07:31→20:08)
--- NOTE | 2018-03-27 08:05 | SOAPPROG ---
SOAP Progress Note Assessment/Plan: Assessment: POD #3 S/P LEFT HIP I&D RE-WASHOUT (Arthrotomy) performed by Dr. Rodriguez. Due to Bacteremia and left septic hip, and failed Sx and Abx Treatment. Plan: From ortho standpoint he may get up occasionally, and may begin PT/OT today. Keep drains present for observation per ID. Infectious Disease will continue to manage patient. He is currently on Vanco. Will asses if growth of blood cultures. PICC line planned to be placed once bacteremia clears. Another hip washout may be warranted if no sign of improvement. Hospitalist team following for all other medical needs. From and Orthopedic standpoint, his pain appears moderately controlled PT/OT: continue WBAT with use of walker. Discharge: (progressing) Pending ID and Medicine decision. 03/27/18 08:02 Subjective: Pain has been better controlled. Denies any SOB, CP, N/V. He appears to be feeling better and in good spirits this AM. Objective: Vital Signs Temp Pulse Resp BP Pulse Ox 37.3 C 100 18 125/82 H 99 03/27/18 07:28 03/27/18 07:31 03/27/18 07:28 03/27/18 07:31 03/27/18 07:28 Microbiology 03/24/18 14:04 Gram Stain - Final Abdomen - Eswab 03/24/18 13:40 Gram Stain - Final Hip - Eswab 03/14/18 17:30 Mycobacterial Smear (MEGGAN) - Final Hip - Tissue 03/14/18 16:39 Mycobacterial Smear (MEGGAN) - Final Hip - Tissue 03/14/18 16:39 Mycobacterial Smear (MEGGAN) - Final Hip - Aspirate 03/14/18 17:30 Gram Stain - Final Hip - Tissue 03/14/18 16:39 Gram Stain - Final Hip - Tissue 03/14/18 16:39 Gram Stain - Final Hip - Aspirate 03/21/18 05:15 Blood Culture - Final Blood MRSA 03/21/18 05:00 Blood Culture - Final Blood MRSA Laboratory Results 03/27/18 04:30 03/27/18 04:30 03/26/18 03/27/18 03/28/18 05:59 05:59 05:59 Intake Total 4799 1099 Output Total 4540 4280 Balance 259 -3181 PHYSICAL EXAM LLE Dressing present, clean and dry 2 drains present with moderate outpute Moves leg and foot well. Distal Neurovasculature intact ICD10 Worksheet Patient Problems: Problems Problem Status Onset Septic arthritis Acute
[2018-03-27] MEDS: PATCH REMOVAL 1 EA PATCH TD SCH (08:10)
--- NOTE | 2018-03-27 08:57 | HOSPPROG ---
Hospitalist Progress Note Assessment/Plan: Mr Avila is a 42 y/o who presented w hip pain. This has been ongoing since March 08. #MRSA sepsis/bacteremia: Cultures persistently positive -continuous vancomycin -will eventually need a PICC once cultures cleared -blood cx from Mar 25 show one positive blood, other one is negative -SUE to be done to r/o endocarditis 03/28 -repeat blood cx today #Left hip septic arthritis, gluteal myositis: s/p open washout with Dr Rodriguez on 03/19, had laparoscopic washouts on 03/14 and 03/17 -went to OR again on 03/24 s/p Left hip I & D and washout -has two large drains in place #Pain -changes as below in the plan #Atrial fibrillation: In setting of infection. - Continue low dose metoprolol - [id number]=6, no indication for AC #Hyponatremia -Na 130 #Transaminitis: increased -may need an ultrasound -to be rechecked again #Anemia: Normocytic. -hold asa for now -reviewed risks and benefits of a transfusion, he would like to wait for ow #low BMI -dietary seeing him #anxiety -calm #DVT prophylaxis: athrombic pumps, has had several surgeries; may need LMWH in the future, has ongoing anemia; will hold at this time #Plan: will dc long acting OxyContin, cut long acting at night in half, added prn oxy. He will think about transfusion today. Met with Rocio twice today, once alone to review the above and then alongside w Dr Wallace. Subjective: Rocio is feeling fine and better than he has in awhile. Objective: Vital Signs Temp Pulse Resp BP Pulse Ox 37.3 C 100 18 125/82 H 99 03/27/18 07:28 03/27/18 07:31 03/27/18 07:28 03/27/18 07:31 03/27/18 07:28 Microbiology 03/24/18 14:04 Gram Stain - Final Abdomen - Eswab 03/24/18 13:40 Gram Stain - Final Hip - Eswab 03/14/18 17:30 Mycobacterial Smear (MEGGAN) - Final Hip - Tissue 03/14/18 16:39 Mycobacterial Smear (MEGGAN) - Final Hip - Tissue 03/14/18 16:39 Mycobacterial Smear (MEGGAN) - Final Hip - Aspirate 03/14/18 17:30 Gram Stain - Final Hip - Tissue 03/14/18 16:39 Gram Stain - Final Hip - Tissue 03/14/18 16:39 Gram Stain - Final Hip - Aspirate 03/21/18 05:15 Blood Culture - Final Blood MRSA 03/21/18 05:00 Blood Culture - Final Blood MRSA Laboratory Results 03/27/18 04:30 03/27/18 04:30 03/26/18 03/27/18 03/28/18 05:59 05:59 05:59 Intake Total 4799 1099 Output Total 4540 4280 Balance 259 -3181 - Physical Exam Constitutional: no apparent distress, appears nourished, not in pain Eyes: PERRL Ears, Nose, Mouth, Throat: hearing normal Cardiovascular: regular rate and rhythym, no murmur, rub, or gallop Respiratory: no respiratory distress Skin: warm, No normal color (pale) Musculoskeletal: generalized weakness Neurologic: AAOx3 Psychiatric: interacting appropriately ICD10 Worksheet Patient Problems: Problems Problem Status Onset Septic arthritis Acute
--- NOTE | 2018-03-27 09:01 | PCMIDPN ---
Assessment/Plan: # MRSA bacteremia and L septic hip and pyomyositis/left iliacus abscess s/p multiple washout, most recently 03/24/18. Cx from OR still positive. Blood cx from 03/25 1 set positive at 36 hours but this less than 24h after last surgery. Suspect just needs more time but obligated to completely r/o endocarditis --continue vancomycin, random level okay @ 28.6 --repeat blood cultures --requested SUE, NPO after midnight # Elevated LFTs --recheck tomorrow --check hepatitis serologies --may need US, but did not discuss w patient meds vancomycin 5gm ggt Microbiology 03/25/18 Blood cx (1/2) GPC 03/24/18 culture from Hip & iliacus abscess: MRSA, vancomycin MEGGAN equal 1 03/19/18 Blood cx (2) MRSA 03/17/18 05:10 Blood CX (2) MRSA 03/15/18 11:40 Blood CX (2) MRSA 03/13/18 15:24 Blood CX (2) MRSA 03/14/18 16:39 Hip - Aspirate MRSA Care coordinated with Rosalie Schaefer WALL MAN Subjective: feeling well I just want to get my blood stronger Objective: Vital Signs Temp Pulse Resp BP Pulse Ox 37.3 C 100 18 125/82 H 99 03/27/18 07:28 03/27/18 07:31 03/27/18 07:28 03/27/18 07:31 03/27/18 07:28 Microbiology 03/24/18 14:04 Gram Stain - Final Abdomen - Eswab 03/24/18 13:40 Gram Stain - Final Hip - Eswab 03/14/18 17:30 Mycobacterial Smear (MEGGAN) - Final Hip - Tissue 03/14/18 16:39 Mycobacterial Smear (MEGGAN) - Final Hip - Tissue 03/14/18 16:39 Mycobacterial Smear (MEGGAN) - Final Hip - Aspirate 03/14/18 17:30 Gram Stain - Final Hip - Tissue 03/14/18 16:39 Gram Stain - Final Hip - Tissue 03/14/18 16:39 Gram Stain - Final Hip - Aspirate 03/21/18 05:15 Blood Culture - Final Blood MRSA 03/21/18 05:00 Blood Culture - Final Blood MRSA Laboratory Results 03/27/18 04:30 03/27/18 04:30 03/26/18 03/27/18 03/28/18 05:59 05:59 05:59 Intake Total 4799 1099 Output Total 4540 4280 Balance 259 -3181 ESR 65 MM/HR (0-15) H 03/13/18 14:49 C-Reactive Protein 156.4 mg/L (<10.0) H 03/27/18 04:30 - Physical Exam General Appearance: alert, no apparent distress, thin EENT: pale conjunctiva Respiratory: lungs clear, No accessory muscle use Cardiac/Chest: regular rate, rhythm, No systolic murmur Extremities: other (L hip dressing in place this AM, examined last night), No pedal edema Abdomen: non-tender, soft Skin: pallor, No rash Neuro/Psych: alert, normal mood/affect, oriented x 3 - Time Spent With Patient Time Spent with Patient: greater than 35 minutes Time Spent with Patient: Greater than 35 minutes spent on this patients care, greater than 50% of time spent counseling, educating, and coordinating care regarding the above mentioned plan. ICD10 Worksheet Patient Problems: Problems Problem Status Onset Septic arthritis Acute
--- NOTE | 2018-03-27 09:42 | ASMTCMCOM ---
CM Note CM Note Notes: Patient still with + blood cultures. Will have SUE tomorrow to r/o endocarditis. He continues to work with PT/OT. D/C plan remains home with [facility] for IV abx and 01/01 Homecare for RN services. Case Management will follow. Date Signed: 03/27/2018 09:41 AM Electronically Signed By:Sindhu Go RN
[2018-03-27 12:12] LABS: HEPATITIS A ANTIBODY TOTAL NEGATIVE (NEGATIVE); HEPATITIS B CORE AB TOTAL NEGATIVE (NEGATIVE); HEPATITIS B SURFACE ANTIGEN NEGATIVE (NEGATIVE); HEPATITIS C ANTIBODY TOTAL NEGATIVE (NEGATIVE)
[2018-03-27] MEDS: oxyCODONE IR 5 MG TAB PO PRN ×2 (13:13→21:14)
[2018-03-27] MEDS: VANCOMYCIN IV SCH (17:05)
[2018-03-27] MEDS: D5W IV SCH (17:05)
[2018-03-28] MEDS: oxyCODONE IR 5 MG TAB PO PRN ×5 (01:14→23:11)
--- NOTE | 2018-03-28 09:09 | HOSPPROG ---
Hospitalist Progress Note Assessment/Plan: Mr Avila is a 42 y/o who presented w hip pain. This has been ongoing since March 08. #MRSA sepsis/bacteremia: Cultures persistently positive -continuous vancomycin -will eventually need a PICC once cultures cleared -blood cx from Mar 25 show both to be positive -SUE to be done to r/o endocarditis today -repeat blood cx pending #Left hip septic arthritis, gluteal myositis: s/p open washout with Dr Rodriguez on 03/19, had laparoscopic washouts on 03/14 and 03/17 -went to OR again on 03/24 s/p Left hip I & D and washout -has two large drains in place #Pain -doing fine with decreasing long acting at night, prn only during day #Atrial fibrillation: In setting of infection. - Continue low dose metoprolol - [id number], no indication for AC #Hyponatremia -Na 130 #Transaminitis: -ordered an ultrasound -trended down a bit (reviewed this w the patient) #Anemia: Normocytic. -hold asa for now #low BMI -dietary seeing him #anxiety -calm #DVT prophylaxis: athrombic pumps, has had several surgeries; may need LMWH in the future, has ongoing anemia; will hold at this time #Plan: SUE today, spoke w Cardiology and they will see him today, Rocio is wanting to get the procedure done this morning, but unclear of the time. ( ultrasound ordered, hoping this can be done today while NPO for the SUE). Will hydrate w saline while he is NPO. Subjective: Rocio is feeling well with the pain meds ordered for his pain. Feels it is well controlled. Objective: Vital Signs Temp Pulse Resp BP Pulse Ox 37.3 C 101 H 16 126/82 H 92 03/28/18 07:43 03/28/18 07:43 03/28/18 07:43 03/28/18 07:43 03/28/18 07:43 Microbiology 03/23/18 04:40 Blood Culture - Final Blood MRSA 03/23/18 04:40 Blood Culture - Final Blood MRSA 03/24/18 14:04 Gram Stain - Final Abdomen - Eswab 03/24/18 13:40 Gram Stain - Final Hip - Eswab 03/14/18 17:30 Gram Stain - Final Hip - Tissue 03/14/18 16:39 Gram Stain - Final Hip - Tissue 03/14/18 16:39 Gram Stain - Final Hip - Aspirate Laboratory Results 03/28/18 04:55 03/27/18 04:30 03/27/18 03/28/18 03/29/18 05:59 05:59 05:59 Intake Total 1099 3249 Output Total 428 4890 [facility] -9304 -2124 - Physical Exam Constitutional: no apparent distress, not in pain Eyes: PERRL Ears, Nose, Mouth, Throat: hearing normal Respiratory: no respiratory distress Skin: warm, No normal color (pale) Musculoskeletal: full muscle strength Neurologic: AAOx3 Psychiatric: interacting appropriately ICD10 Worksheet Patient Problems: Problems Problem Status Onset Septic arthritis Acute
[2018-03-28] MEDS ORDERED: NS 1,000 ML IV SCH (09:45)
[2018-03-28] MEDS ORDERED: MIDAZOLAM 2 MG/2 ML VIAL IVP ONE (10:49)
[2018-03-28] MEDS ORDERED: NS 500 ML IV ONE (10:49)
[2018-03-28] MEDS ORDERED: BENZOCAINE UNIT DOSE SPRAY HURRICAINE MM ONE (10:49)
[2018-03-28] MEDS ORDERED: fentaNYL 100 MCG/2 ML INJ IVP ONE (10:49)
[2018-03-28] MEDS: NS 1,000 ML IV SCH (10:58)
[2018-03-28] MEDS ORDERED: PROPOFOL 200 MG/20 ML VIAL ONE ×2 (11:24→11:40)
--- NOTE | 2018-03-28 11:26 | PDGENHP ---
History & Physical Chief Complaint: persistent fevers History of Present Illness: septic joint Pertinent Past, Social, Family History: no known cad or vhd Relevant Physical Exam: rrr s1 s2 without murmur...clear lungs Cardiorespiratory Assessment: anesthsia for proceedure management
[2018-03-28] MEDS ORDERED: ONDANSETRON 4 MG/2 ML VIAL IVP PRN (12:06)
[2018-03-28] MEDS ORDERED: NS 500 ML IV PRN (12:06)
[2018-03-28] MEDS ORDERED: fentaNYL 100 MCG/2 ML INJ IVP PRN (12:06)
[2018-03-28] MEDS ORDERED: NALOXONE HCL 0.4 MG/ML INJ IVP PRN (12:06)
--- NOTE | 2018-03-28 12:06 | PDANEPAE ---
ANE Past Medical History - Cardiovascular History Hx Hypertension: No Hx Arrhythmias: No Hx Chest Pain: No Hx Coronary Artery / Peripheral Vascular Disease: No Hx CHF / Valvular Disease: No Hx Palpitations: No - Pulmonary History Hx COPD: No Hx Asthma/Reactive Airway Disease: No Hx Recent Upper Respiratory Infection: No Hx Oxygen in Use at Home: No Hx Sleep Apnea: No Sleep Apnea Screening Result - Last Documented: Negative - Endocrine History Hx Diabetes: No Obesity: no - Chronic Pain History Chronic Pain: No ANE Review of Systems Review of Systems: - Exercise capacity METS (RN): 5 METS ANE Patient History - Allergies Allergies/Adverse Reactions: No Known Allergies Allergy (Unverified 03/13/18 14:01) - Home Medications Home medications: home medication list seen and reviewed Home Medications: Herbals/Supplements -Info Only 1 ea PO DAILY 03/13/18 [Last Taken 03/13/18] - NPO status NPO Status: no food or drink >8 hours NPO Since - Liquids (Date): 03/24/18 NPO Since - Liquids (Time): 00:00 NPO Since - Solids (Date): 03/24/18 NPO Since - Solids (Time): 04:00 - Anes Hx Anes Hx: no prior problems - Smoking Hx Smoking Status: Never smoked ANE Labs/Vital Signs - Labs Result Diagrams: 03/28/18 04:55 03/27/18 04:30 - Vital Signs Blood Pressure: 126/82 Heart Rate: 101 Respiratory Rate: 16 O2 Sat (%): 92 Height: 180.34 cm Weight: 69.6 kg ANE Physical Exam - Airway Neck exam: FROM Mallampati Score: Class 1 Mouth exam: normal dental/mouth exam - Pulmonary Pulmonary: no respiratory distress, no rales or rhonchi, clear to auscultation - Cardiovascular Cardiovascular: regular rate and rhythym, no murmur, rub, or gallop - ASA Status ASA Status: III ANE Anesthesia Plan Anesthesia Plan: MAC
--- NOTE | 2018-03-28 12:06 | PDCARTEE ---
CAR SUE CAR SUE: after informed consent ...pt had anesthesia deliver the probe with direct visualization without problems.....multiple images obtained and bubble study done..probe removed without any complications. findings: 1. normal lvef without rwma 2. no intra atrial shunt with bubble study 3. all valves without masses or regurgitant or stenotic lesions 4. prox intra atrial septum with either liptomatous change or possibly an attached small vegetation ( looked at by me and dr mark) recommend: atb rx as if endocarditis and consider repeat SUE at a later date to see if resolution.
--- NOTE | 2018-03-28 12:09 | POSTANESTH ---
Post Anesthetic Evaluation Cardiovascular Status: Normal, Stable, Similar to Pre-Op Cond Respiratory Status: Normal, Stable, Similar to Pre-op Cond. Level of Consciousness/Mental Status: Can Participate in Eval, Mildly Sleepy, Arousable Pain Control: Adequate, Prn Tx Ordered Nausea/Vomiting Control: Adequate, Prn Tx Ordered Complications Possibly Related to Anesthesia: None Noted
[2018-03-28] MEDS: POLYETHYLENE GLYCOL 3350 17 GM PKT PO SCH (13:47)
[2018-03-28] MEDS: PATCH REMOVAL 1 EA PATCH TD SCH (13:47)
[2018-03-28] MEDS: SENNOSIDES/DOCUSATE SODIUM TAB PO SCH ×2 (13:47→21:49)
[2018-03-28] MEDS: MULTIVITAMINS 1 EACH TAB PO SCH (14:30)
[2018-03-28] MEDS: PANTOPRAZOLE SODIUM 40 MG TAB PO SCH (14:31)
[2018-03-28] MEDS: METOPROLOL TARTRATE 25 MG TAB PO SCH ×2 (14:31→21:49)
[2018-03-28] MEDS: METHOCARBAMOL 500 MG TAB PO PRN ×2 (14:31→21:55)
[2018-03-28] MEDS: FERROUS SULFATE 140 MG TAB.ER PO SCH (14:33)
[2018-03-28] MEDS: MAGNESIUM HYDROXIDE 30 ML UDCUP PO SCH (14:39)
[2018-03-28] MEDS: ASCORBIC ACID 500 MG TAB PO SCH (14:42)
--- NOTE | 2018-03-28 14:42 | ECHO ---
[email or web address] [address] [address] Main: [phone] Fax: Transesophageal Echocardiography Name: HERI FRANCISCO MR#: [id number] Study Date: 03/28/2018 Study Time: 11:23 AM Date of : 1975 Age: 42 year(s) Height: ( ) Weight: ( ) BSA: Gender: Male Examination: SUE Indication: Eval for vegetation Image Quality: Contrast: Requested by: Vickey Zaragoza Heart Rate: Rhythm: BP: / Procedure Staff Manager Mall: Gracie Zaldivar [facility] Reading Physician: Ruddy Leigh MD Requesting Provider: SUE Exam Details Conclusions: An agitated saline study was performed and was negative for intracardiac shunting. Hyperechoic structure visualized on the intraatrial septal wall.. No thrombus in left appendage. Mitral Valve: Trivial mitral valve regurgitation. There is no mitral valve vegetation. The aortic valve is tri-leaflet. There is no aortic valve regurgitation. There is no aortic valve vegetation. No tricuspid valve vegetation. Pulmonary valve not well visualized. there is a echo dense area at the base of the intra atrial septum...this could represent either lipomatous change or a possible vegetation. Measurements: Chambers Valvular Assessment AV/MV Valvular Assessment TV/PV Normal Normal Normal Name Value Range Name Value Range Name Value Range Additional Measurements: Findings: Patient: HERI FRANCISCO Study Date: 03/28/2018 Page 1 of 2 11:23 AM Left Atrium: An agitated saline study was performed and was negative for intracardiac shunting. Hyperechoic structure visualized on the intraatrial septal wall.. Left Atrial Appendage: No thrombus in left appendage. Mitral Valve: Trivial mitral valve regurgitation. There is no mitral valve vegetation. Aortic Valve: The aortic valve is tri-leaflet. There is no aortic valve regurgitation. There is no aortic valve vegetation. Tricuspid Valve: No tricuspid valve vegetation. Pulmonic Valve: Pulmonary valve not well visualized. Exam Comments: there is a echo dense area at the base of the intra atrial septum...this could represent either lipomatous change or a possible vegetation. l1n (No Signature Object) Patient: HERI FRANCISCO Study Date: 03/28/2018 Page 2 of 2 11:23 AM [id number]
--- NOTE | 2018-03-28 15:11 | PCMIDPN ---
Assessment/Plan: # MRSA bacteremia and L septic hip and pyomyositis/left iliacus abscess s/p multiple washout, most recently 03/24/18. Cx from OR still positive. Blood cx from 03/25 1 set positive at 36 hours but this less than 24h after last surgery. lipomatous finding R medial atrial wall. CRP down to 156 from 256 --check EKG as lipoma position near electrical system --reviewed SUE findings w patient --SUE findings low concern for endocarditis, but reasonable to repeat SUE at some point in the future --continue vancomycin ggt --no new Positive blood cx today # Elevated LFTs --RUQ US tomorrow AM --Hep serologies negative, relayed to patient today meds vancomycin 5gm ggt Microbiology 03/27/18 blood cx (2) pending 03/25/18 Blood cx (1/2) GPC 03/24/18 culture from Hip & iliacus abscess: MRSA, vancomycin MEGGAN equal 1 03/19/18 Blood cx (2) MRSA 03/17/18 05:10 Blood CX (2) MRSA 03/15/18 11:40 Blood CX (2) MRSA 03/13/18 15:24 Blood CX (2) MRSA 03/14/18 16:39 Hip - Aspirate MRSA Care coordinated with Rosalie Schaefer NP Subjective: patient feeling well grateful for care at [facility] Objective: Vital Signs Temp Pulse Resp BP Pulse Ox 37.3 C 120 H 16 126/82 H 92 03/28/18 07:43 03/28/18 14:31 03/28/18 12:06 03/28/18 14:31 03/28/18 12:06 Microbiology 03/24/18 14:04 Gram Stain - Final Abdomen - Eswab 03/24/18 13:40 Gram Stain - Final Hip - Eswab 03/14/18 17:30 Gram Stain - Final Hip - Tissue Anaerobic Culture - Final MRSA 03/14/18 16:39 Gram Stain - Final Hip - Tissue Anaerobic Culture - Final MRSA 03/14/18 16:39 Gram Stain - Final Hip - Aspirate Anaerobic Culture - Final MRSA 03/23/18 04:40 Blood Culture - Final Blood MRSA 03/23/18 04:40 Blood Culture - Final Blood MRSA Laboratory Results 03/28/18 04:55 03/27/18 04:30 03/27/18 03/28/18 03/29/18 05:59 05:59 05:59 Intake Total 1099 3249 200 Output Total 4280 4815 1800 Balance -0391 -1566 -1600 ESR 65 MM/HR (0-15) H 03/13/18 14:49 C-Reactive Protein 156.4 mg/L (<10.0) H 03/27/18 04:30 General Appearance: alert, no apparent distress, thin EENT: pale conjunctiva Respiratory: lungs clear, No accessory muscle use Cardiac/Chest: tachy No systolic murmur Extremities:L hip dressing in place - by report no erythema remains ; No pedal edema Abdomen: non-tender, soft Skin: pallor, No rash Neuro/Psych: alert, normal mood/affect, oriented x 3 Time Spent with Patient: greater than 35 minutes Time Spent with Patient: Greater than 35 minutes spent on this patients care, greater than 50% of time spent counseling, educating, and coordinating care regarding the above mentioned plan. ICD10 Worksheet Patient Problems: Problems Problem Status Onset Septic arthritis Acute
[2018-03-28] MEDS: VITAMIN B COMPLEX 1 EA CAP/TAB PO SCH (16:48)
[2018-03-28] MEDS: D5W IV SCH (18:08)
[2018-03-28] MEDS: VANCOMYCIN IV SCH (18:08)
[2018-03-29] MEDS: ACETAMINOPHEN 325 MG TAB PO PRN ×3 (01:43→22:52)
[2018-03-29] MEDS: oxyCODONE IR 5 MG TAB PO PRN ×2 (03:32→14:30)
[2018-03-29] MEDS: METHOCARBAMOL 500 MG TAB PO PRN ×3 (03:32→22:48)
--- NOTE | 2018-03-29 08:41 | HOSPPROG ---
Hospitalist Progress Note Assessment/Plan: Mr Avila is a 42 y/o who presented w hip pain. This has been ongoing since March 08. #MRSA sepsis/bacteremia: Cultures persistently positive -continuous vancomycin (level is 32.6) -will eventually need a PICC once cultures cleared -SUE shows low concern for endocarditis, has a lipomatous finding on r medial atrial wall. Should get a repeat SUE in the future. -repeat blood cx show no growth #Left hip septic arthritis, gluteal myositis: s/p open washout with Dr Rodriguez on 03/19, had laparoscopic washouts on 03/14 and 03/17 -went to OR again on 03/24 s/p Left hip I & D and washout -has two large drains in place #Pain -had been doing fine with decreasing long acting at night, prn only during day #Atrial fibrillation: In setting of infection. - Continue low dose metoprolol - [id number], no indication for AC #Hyponatremia -Na 130 #Transaminitis: -ultrasound showed nothing acute -poss from abx #Anemia: Normocytic. -hold asa for now -has declined transfusion and vital signs have been stable #low BMI -dietary seeing him #anxiety -calm #DVT prophylaxis: athrombic pumps, has had several surgeries; may need LMWH in the future, has ongoing anemia; will hold at this time #Plan: Rocio was very upset this morning, wants his long acting pain medication increased tonight "wants to be put out" so he can sleep all night. Will increase back to 20 mg tonight, but should consider going back to the 10 mg dose. Reviewed his care with Dr Wallace. Hopefully, can get a PICC in on Sunday. Subjective: Rocio said he is exhausted, didn't sleep last night and said it was due to the pain in his hip. Objective: Vital Signs Temp Pulse Resp BP Pulse Ox 36.9 C 85 16 117/66 92 03/29/18 03:46 03/29/18 07:32 03/29/18 03:46 03/29/18 03:46 03/29/18 03:46 Microbiology 03/24/18 14:04 Gram Stain - Final Abdomen - Eswab 03/24/18 13:40 Gram Stain - Final Hip - Eswab 03/14/18 17:30 Gram Stain - Final Hip - Tissue Anaerobic Culture - Final MRSA 03/14/18 16:39 Gram Stain - Final Hip - Tissue Anaerobic Culture - Final MRSA 03/14/18 16:39 Gram Stain - Final Hip - Aspirate Anaerobic Culture - Final MRSA 03/23/18 04:40 Blood Culture - Final Blood MRSA 03/23/18 04:40 Blood Culture - Final Blood MRSA Laboratory Results 03/28/18 04:55 03/27/18 04:30 03/28/18 03/29/18 03/30/18 05:59 05:59 05:59 Intake Total 3249 2450 Output Total 9883 2890 Balance -1566 -440 - Physical Exam Constitutional: other (thin) Eyes: PERRL Ears, Nose, Mouth, Throat: hearing normal Respiratory: no respiratory distress Skin: warm Musculoskeletal: generalized weakness Neurologic: AAOx3 Psychiatric: interacting appropriately, thought process linear ICD10 Worksheet Patient Problems: Problems Problem Status Onset Septic arthritis Acute
[2018-03-29] MEDS: METOPROLOL TARTRATE 25 MG TAB PO SCH ×2 (09:05→20:21)
[2018-03-29] MEDS: PANTOPRAZOLE SODIUM 40 MG TAB PO SCH (09:05)
[2018-03-29] MEDS: ASCORBIC ACID 500 MG TAB PO SCH (09:06)
[2018-03-29] MEDS: MULTIVITAMINS 1 EACH TAB PO SCH (09:06)
[2018-03-29] MEDS: VITAMIN B COMPLEX 1 EA CAP/TAB PO SCH (09:06)
[2018-03-29] MEDS: PATCH REMOVAL 1 EA PATCH TD SCH (09:07)
[2018-03-29] MEDS: MAGNESIUM HYDROXIDE 30 ML UDCUP PO SCH (09:07)
[2018-03-29] MEDS: FERROUS SULFATE 140 MG TAB.ER PO SCH (09:07)
[2018-03-29] MEDS: POLYETHYLENE GLYCOL 3350 17 GM PKT PO SCH (09:08)
[2018-03-29] MEDS: SENNOSIDES/DOCUSATE SODIUM TAB PO SCH ×2 (09:08→20:20)
--- NOTE | 2018-03-29 09:17 | CPEKG ---
Test Reason : OPEN Blood Pressure : / mmHG Vent. Rate : 109 BPM Atrial Rate : 110 BPM P-R Int : 122 ms QRS Dur : 084 ms QT Int : 328 ms P-R-T Axes : 084 085 080 degrees QTc Int : 442 ms Sinus tachycardia Consider left ventricular hypertrophy Prior ECG with atrial fibrillation Confirmed by Hernesto Banegas ([id number]) on 03/29/2018 9:17:01 AM Referred By: Confirmed By:Hernesto Banegas
--- NOTE | 2018-03-29 09:21 | SOAPPROG ---
SOAP Progress Note Assessment/Plan: Assessment: POD #5 S/P LEFT HIP I&D RE-WASHOUT (Arthrotomy) performed by Dr. Rodriguez. Due to Bacteremia and left septic hip, and failed Sx and Abx Treatment. Plan: From ortho standpoint he may get up occasionally, and may continue PT/OT today. We would like the drains pulled, however we will see what ID wants to do if they would prefer drains in or not. Infectious Disease will continue to manage patient. He is currently on Vanco. Will asses if growth of blood cultures. PICC line planned to be placed once bacteremia clears. Another hip washout may be warranted if no sign of improvement. Hospitalist team following for all other medical needs. From and Orthopedic standpoint, his pain appears moderately controlled PT/OT: continue WBAT with use of walker. Discharge: (progressing) Pending ID and Medicine decision. 03/29/18 09:18 Subjective: Daemian states he had a pretty painful night, however this AM his pain is minimal. He denies any SOB, CP, N/V. Objective: Vital Signs Temp Pulse Resp BP Pulse Ox 36.9 C 85 16 117/66 92 03/29/18 03:46 03/29/18 07:32 03/29/18 03:46 03/29/18 03:46 03/29/18 03:46 Microbiology 03/24/18 14:04 Gram Stain - Final Abdomen - Eswab 03/24/18 13:40 Gram Stain - Final Hip - Eswab 03/14/18 17:30 Gram Stain - Final Hip - Tissue Anaerobic Culture - Final MRSA 03/14/18 16:39 Gram Stain - Final Hip - Tissue Anaerobic Culture - Final MRSA 03/14/18 16:39 Gram Stain - Final Hip - Aspirate Anaerobic Culture - Final MRSA 03/23/18 04:40 Blood Culture - Final Blood MRSA 03/23/18 04:40 Blood Culture - Final Blood MRSA Laboratory Results 03/28/18 04:55 03/27/18 04:30 03/28/18 03/29/18 03/30/18 05:59 05:59 05:59 Intake Total 3249 2450 Output Total 4857 2890 Balance -1566 -440 PHYSICAL EXAM Surgical incision was examined yesterday, showing well approximation and no abnormal drainage or erythema. I did not want to take dressing down again today to examine, in order to reduce risk of SSI. 2 drains present with moderate output. Lifts leg well, and DF/PF 5/5. Distal neurovasculature intact. He is in no acute distress ICD10 Worksheet Patient Problems: Problems Problem Status Onset Septic arthritis Acute
[2018-03-29] MEDS: LIDOCAINE 4%/MENTHOL 1% PATCH TD PRN (10:34)
--- NOTE | 2018-03-29 12:11 | PCMIDPN ---
Assessment/Plan: # MRSA bacteremia and L septic hip and pyomyositis/left iliacus abscess s/p multiple washout, most recently 03/24/18. MRI also showed some bony changes SUE showed lipomatous finding R medial atrial wall, not likely endocarditis. # Elevated LFTs: discussed w patient and mother that elevated LFTs could be related to vancomycin Recommendations 1) check labs in AM including random vancomycin 2) will place PICC line tomorrow, plan 6 weeks IV vancomycin, stop date 05/08/18 3) discharge planning with tentative date of discharge Sunday or Sunday 4) I will pull hip drains tomorrow, patient did not want to do it today 5) Random level of vancomycin creeping up, decrease dose to 4.5 gm/day meds vancomycin 5gm ggt Microbiology 03/27/18 blood cx (2) NGTD 03/25/18 Blood cx (1/2) MRSA 03/24/18 culture from Hip & iliacus abscess: MRSA, vancomycin MEGGAN equal 1 03/19/18 Blood cx (2) MRSA 03/17/18 05:10 Blood CX (2) MRSA 03/15/18 11:40 Blood CX (2) MRSA 03/13/18 15:24 Blood CX (2) MRSA 03/14/18 16:39 Hip - Aspirate MRSA Care coordinated with Rosalie Schaefer PATROL COMMANDER Subjective: feeling well although did not sleep well Objective: Vital Signs Temp Pulse Resp BP Pulse Ox 36.4 C 88 14 114/80 92 03/29/18 08:00 03/29/18 08:00 03/29/18 08:00 03/29/18 08:00 03/29/18 03:46 Microbiology 03/24/18 14:04 Gram Stain - Final Abdomen - Eswab 03/24/18 13:40 Gram Stain - Final Hip - Eswab 03/14/18 17:30 Gram Stain - Final Hip - Tissue Anaerobic Culture - Final MRSA 03/14/18 16:39 Gram Stain - Final Hip - Tissue Anaerobic Culture - Final MRSA 03/14/18 16:39 Gram Stain - Final Hip - Aspirate Anaerobic Culture - Final MRSA 03/23/18 04:40 Blood Culture - Final Blood MRSA 03/23/18 04:40 Blood Culture - Final Blood MRSA Laboratory Results 03/28/18 04:55 03/27/18 04:30 03/28/18 03/29/18 03/30/18 05:59 05:59 05:59 Intake Total 3249 2450 600 Output Total 4860 2890 600 Balance -1566 -440 0 ESR 65 MM/HR (0-15) H 03/13/18 14:49 C-Reactive Protein 156.4 mg/L (<10.0) H 03/27/18 04:30 - Physical Exam General Appearance: alert, no apparent distress, thin EENT: pale conjunctiva Respiratory: No accessory muscle use Skin: pallor, No rash Neuro/Psych: alert, normal mood/affect, oriented x 3 - Time Spent With Patient Time Spent with Patient: greater than 35 minutes (reviewing lab findings, PICC line placement, need for L hip drain removal) Time Spent with Patient: Greater than 35 minutes spent on this patients care, greater than 50% of time spent counseling, educating, and coordinating care regarding the above mentioned plan. ICD10 Worksheet Patient Problems: Problems Problem Status Onset Septic arthritis Acute
[2018-03-29] MEDS: D5W IV SCH (13:03)
[2018-03-29] MEDS: VANCOMYCIN IV SCH (13:03)
--- NOTE | 2018-03-29 14:21 | ASMTCMCOM ---
CM Note CM Note Notes: Pt will likely get picc tomorrow, report will need to be sent to [facility]. Pt to d/c to mother's home :Hannah [phone] address is [facility] [place] [address]. [facility] updated and 01/01 Home Care (Spoken with Shameka) can still take pt in [place]. Pt likely d/c Sunday/Sunday. CM to follow. Date Signed: 03/29/2018 02:20 PM Electronically Signed By:SHINE Chand
[2018-03-30 05:15] LABS: PLATELET COUNT 847 10^3/uL (150-400)
[2018-03-30] MEDS ORDERED: ALTEPLASE 2 MG VIAL IVP PRN (08:32)
[2018-03-30] MEDS: VITAMIN B COMPLEX 1 EA CAP/TAB PO SCH (08:34)
[2018-03-30] MEDS: METHOCARBAMOL 500 MG TAB PO PRN (08:35)
[2018-03-30] MEDS: ASCORBIC ACID 500 MG TAB PO SCH (08:35)
[2018-03-30] MEDS: FERROUS SULFATE 140 MG TAB.ER PO SCH (08:36)
[2018-03-30] MEDS: MULTIVITAMINS 1 EACH TAB PO SCH (08:36)
[2018-03-30] MEDS: METOPROLOL TARTRATE 25 MG TAB PO SCH (08:37)
[2018-03-30] MEDS: PANTOPRAZOLE SODIUM 40 MG TAB PO SCH (08:38)
[2018-03-30] MEDS ORDERED: HYDROmorphONE/DILAUDID 1 MG/ML INJ IVP ONE (09:02)
--- NOTE | 2018-03-30 10:02 | PCMIDPN ---
Assessment/Plan: # MRSA bacteremia and L septic hip and pyomyositis/left iliacus abscess s/p multiple washout, most recently 03/24/18. MRI also showed some bony changes SUE showed lipomatous finding R medial atrial wall, not likely endocarditis. # Elevated LFTs: improved today, continue to monitor as outpatient Recommendations 1) place PICC line, plan 6 weeks IV vancomycin, stop date 05/08/18 2) DC okay as soon as vancomycin available as outpatient and PICC line placed 3) drains removed by me without difficulty meds vancomycin 5gm ggt Microbiology 03/27/18 blood cx (2) NGTD 03/25/18 Blood cx (1/2) MRSA 03/24/18 culture from Hip & iliacus abscess: MRSA, vancomycin MEGGAN equal 1 03/19/18 Blood cx (2) MRSA 03/17/18 05:10 Blood CX (2) MRSA 03/15/18 11:40 Blood CX (2) MRSA 03/13/18 15:24 Blood CX (2) MRSA 03/14/18 16:39 Hip - Aspirate MRSA Care coordinated with Emely Chow, LUCAS and Prosper Rodriguez Subjective: no issues ready to go home Objective: Vital Signs Temp Pulse Resp BP Pulse Ox 37.2 C 90 18 124/76 H 95 03/30/18 07:12 03/30/18 07:12 03/30/18 07:12 03/30/18 07:12 03/30/18 07:12 Microbiology 03/24/18 14:04 Gram Stain - Final Abdomen - Eswab 03/24/18 13:40 Gram Stain - Final Hip - Eswab Laboratory Results 03/30/18 04:55 03/30/18 04:55 03/29/18 03/30/18 03/31/18 05:59 05:59 05:59 Intake Total 2450 1958 200 Output Total 2890 2736 100 Balance -440 -778 100 ESR 65 MM/HR (0-15) H 03/13/18 14:49 C-Reactive Protein 156.4 mg/L (<10.0) H 03/27/18 04:30 - Physical Exam General Appearance: alert, no apparent distress Respiratory: lungs clear, No accessory muscle use Neck: supple Cardiac/Chest: regular rate, rhythm Skin: other (L hip incision with no erythema, fluctuance, drainage.) Neuro/Psych: alert, oriented x 3 - Time Spent With Patient Time Spent with Patient: greater than 35 minutes Time Spent with Patient: Greater than 35 minutes spent on this patients care, greater than 50% of time spent counseling, educating, and coordinating care regarding the above mentioned plan. ICD10 Worksheet Patient Problems: Problems Problem Status Onset Septic arthritis Acute
--- NOTE | 2018-03-30 10:05 | PDIAF ---
- Diagnosis Diagnosis: MRSA bacteremia L septic Hip, pyomyositis and OM Code Status: Full Code - Medication Management Discharge Medications: Medications to Continue on Transfer Herbals/Supplements -Info Only 1 ea PO DAILY 03/13/18 [Last Taken 03/13/18] Ferrasorb 2 cap PO DAILY 03/28/18 [Last Taken Unknown] Glassine Machine Tender Antibiotics: vancomycin 4.5 gm IV continuous infusion Glassine Machine Tender Antibiotic Stop Date: 05/08/18 Discharge Medications: Refer to the Discharge Home Medication list for PRN reason. PICC Care - Routine: Yes - Orders Services needed: Home Care, Registered Nurse Home Care Face to Face: I certify that this patient was under my care and that I had the required [id number] encounter meeting the encounter requirements on the discharge day. My findings support the fact that the patient is homebound as defined in Home Care Face to Face Continued: CMS Chapter 7 Medicare Benefits Manual 30.1.1 , The condition of the patient is such that there exists a normal inability to leave home and consequently, leaving home would require a considerable and taxing effort. Isolation Type: Contact Isolation - Labs/Radiology BMP Date: 04/04/18 (Weekly ) CBC w/diff Date: 04/01/18 (Weekly Sunday) CMP Date: 04/01/18 (Weekly Sunday) Vanco Trough Date and Time: Vancomycin random every Sunday and 1st dates are 04/01 and 04/04 Vanco Random Date: 04/01/18 (Weekly Sunday and ) Call or Fax Lab and Imaging Results to: Kourtney Wallace MD [facility] at fax [phone] - Follow Up Care Current Providers and Referrals: NONE *PRIMARY CARE P,. [Primary Care Provider] - As per Instructions Kourtney Wallace MD [Medical Doctor] - 04/10/18 11:00 am
[2018-03-30] MEDS: MAGNESIUM HYDROXIDE 30 ML UDCUP PO SCH (12:07)
[2018-03-30] MEDS: SENNOSIDES/DOCUSATE SODIUM TAB PO SCH (12:08)
[2018-03-30] MEDS: POLYETHYLENE GLYCOL 3350 17 GM PKT PO SCH (12:08)
[2018-03-30] MEDS: PATCH REMOVAL 1 EA PATCH TD SCH (12:08)
[2018-03-30 12:12] VITALS: BP 103/70
--- NOTE | 2018-03-30 13:56 | ASMTLACE ---
LACE Length of stay for Answers: 14 days or more current admission Acuity / Level of Answers: Yes Care: Did the patient have an inpatient admission? # of Emergency department Answers: 1-2 visits in the last 6 months Score: 11 Date Signed: 03/30/2018 01:55 PM Electronically Signed By:SHINE Kulkarni
--- NOTE | 2018-03-30 14:02 | ASDISCHSUM ---
Discharge Information Plan Status:IV ABX/Infusion Medically Cleared to Leave:03/30/2018 Discharge Date:03/30/2018 CM D/C Disposition:Home Health Service ADT D/C Disposition:[id number] Projected Discharge Date:03/30/2018 11:00 AM Transportation at D/C:Family Discharge Delay Reason: Follow-Up Date:03/30/2018 11:00 AM Discharge Slot: Final Diagnosis: Placement Information Referral Type:Home Infusion Referral ID:[id number] Provider Name:[facility] [place] [facility] Address 1:[address] Address 2: City:[place] Selection Factors: State:[place] Referral Type:*Home Health Care Services Referral ID:[id number] Provider Name:01/01 [facility] Address 1:[address] [address] Address 2: City:[place] Selection Factors: State:[place] Patient Contact Information Contact Name:ASPEN Relationship:Mother Address:[address] [place] [address] [address] [facility] Work Phone: City:[place] [facility] Phone: [facility]/Zip Code:[place] [address] Email: Financial Information Financial Class:Medicaid Primary Plan Desc:[facility]ID [facility] Primary Plan Number:[id number] Secondary Plan Desc: Secondary Plan Number: Assessment Information LACE LACE Length of stay for Answers: 14 days or more current admission Acuity / Level of Answers: Yes Care: Did the patient have an inpatient admission? # of Emergency department Answers: 1-2 visits in the last 6 months Score: 11 Date Signed: 03/30/2018 01:55 PM Electronically Signed By:SHINE Kulkarni [facility] CM Progress Note CM Note CM Note Notes: Pt admitted for septic hip and possible bacteremia with blood cultures positive for MRSA and gram positive cocci clusters. Pt to have I&D washout today at 14:30. CM needs TBD after surgery. PT and OT ordered. D/C Plan: TBD Date Signed: 03/14/2018 10:43 AM Electronically Signed By:Prema Sy [facility] CM Progress Note CM Note CM Note Notes: Spoke with pt and mother in the room. Pt states he doesn't anticipate any CM needs upon discharge. Mother and housemate are available to help with food, medications and transportation. Pt to see PT/OT after surgery today for full evaluation. CM needs TBD, likely independent. D/c Plan: likely independent TBD. Date Signed: 03/14/2018 10:54 AM Electronically Signed By:Prema Sy [facility] CM Progress Note CM Note CM Note Notes: Pt approved for Medicaid #[id number], pt very relieved to hear this. Pt likely needs intermediate IV antibiotics. Referral sent to rico Barry pt Medicaid and he is covered 100% for Vanco. Pt d/c date TBD and exactly which antibiotic pt will d/c with TBD. 01/01 can accept pt for home health, referral sent in [employer]. D/c plan of care: Home with IV antibiotcs via [facility] and 01/01 [facility] Date Signed: 03/15/2018 03:05 PM Electronically Signed By:SHINE Chand [facility] CM Progress Note CM Note CM Note Notes: Today pt had a L Hip Arthroscopy, synovectomy and washout. Pt went into AFIB approximately 24 hrs ago. A phsician saw him this morning; heart rate is controlled with no meds. CM will follow. D/C Plan: [facility]. Date Signed: 03/18/2018 11:42 AM Electronically Signed By:Mara Khan [facility] CM Progress Note CM Note CM Note Notes: Updates sent to both [facility] and 01/01 [facility] in [place]. Confirmed with 01/01 [facility] that their [place] branch will be accepting. D/C date unknown - patient to OR today for wash-out. CM will continue to follow. Plan: [facility] - 01/01 [facility] Date Signed: 03/18/2018 02:50 PM Electronically Signed By:Mae Bell RN [facility] CM Progress Note CM Note CM Note Notes: Pt had washout yesterday. D/c plan plan remains d/c home with [facility] and 01/01 [facility]. Date Signed: 03/21/2018 02:39 PM Electronically Signed By:SHINE Chand [facility] CM Progress Note CM Note CM Note Notes: Updates sent to [facility] and [facility] in [employer]. Pt cultures to clear then he will get picc, picc report to be sent to [facility] when available. Pt likely d/c on Vanco continuous infusion. CM to follow. D/c plan of care: Home with [facility] and 01/01 Home Care Date Signed: 03/22/2018 02:43 PM Electronically Signed By:SHINE Chand [facility] CM Progress Note CM Note CM Note Notes: CM met with pt upon his request. Pt and mother expressed frustration and upset with the care he is receiving at [facility] related to his pain management. Pt had multiple complaints re his knowledge of what the medication plan is, his belief that the nurses do not give him what is ordered, that when he receives pain meds they are often late and that nurses are not available during shift changes. He requested a mtg with today's hospitalist to discuss these concerns and develop a pain medication strategy. He also indicated that the Ativan he was given last night caused him to hallucinate. Message was sent through [facility] to today's hospitalist re pt's concerns. It was recommended to nursing staff that he be offered the patient's advocate phone number if he continues to voice concern. D/C Plan: [facility], 01/01 Date Signed: 03/23/2018 10:49 AM Electronically Signed By:Mara Khan [facility] Progress Note CM Note CM Note Notes: Patient is POD #1 L hip I&D and re-washout. Ortho has recommended 24 hours of rest (no PT/OT). PICC to be placed when cultures clear. Discharge plan continues to be home with [facility] for infusion and 01/01 for RN. Case Management will follow. Date Signed: 03/25/2018 11:10 AM Electronically Signed By:Sindhu Go RN [facility] Progress Note CM Note CM Note Notes: Patient still with + blood cultures. Will have SUE tomorrow to r/o endocarditis. He continues to work with PT/OT. D/C plan remains home with [facility] for IV abx and 01/01 Homecare for RN services. Case Management will follow. Date Signed: 03/27/2018 09:41 AM Electronically Signed By:Sindhu Go RN [facility] Progress Note CM Note CM Note Notes: Pt will likely get picc tomorrow, report will need to be sent to [facility]. Pt to d/c to mother's home :Hannah [phone] address is [address], [address] [place] [address]. [facility] updated and 01/01 Home Care (Spoken with Shameka) can still take pt in [place]. Pt likely d/c Sunday/Sunday. CM to follow. Date Signed: 03/29/2018 02:20 PM Electronically Signed By:SHINE Chand Case Management Discharge Plan Note Case Management Discharge Discharge Order Complete? Answers: Yes Patient to Obtain Answers: via Family Medications Transportation Arranged Answers: Family/Friends Family Notified Answers: Yes Discharge Comments Notes: Pt is discharging home to his mother's today. [facility] informed - they will deliver the IV ABX to the hospital prior to the pt leaving due to 01/01 being unable to send an RN until tomorrow morning. 01/01 also informed of pt's d/c. D/C order and meds sent to [facility] and 01/01 via [facility] [facility]. Both agencies are aware pt will be staying at his mother's. Date Signed: 03/30/2018 02:00 PM Electronically Signed By:SHINE Kulkarni Intervention Information
[2018-03-30] MEDS: VANCOMYCIN IV SCH (15:12)
[2018-03-30] MEDS: D5W IV SCH (15:12)
--- NOTE | 2018-03-30 15:27 | PDIAF ---
- Diagnosis Diagnosis: MRSA bacteremia L septic Hip, pyomyositis and OM Code Status: Full Code - Medication Management Discharge Medications: Medications to Continue on Transfer Herbals/Supplements -Info Only 1 ea PO DAILY 03/13/18 [Last Taken 03/13/18] Ferrasorb 2 cap PO DAILY 03/28/18 [Last Taken Unknown] Acetaminophen [Tylenol 325mg (*)] 650 mg PO Q4HRS PRN tab 03/30/18 [Last Taken Unknown] Ascorbic Acid [Vitamin C 500 mg (*)] 500 mg PO DAILY tab 03/30/18 [Last Taken Unknown] Aspirin EC [Aspirin EC 325 mg (*)] 325 mg PO DAILY tab 03/30/18 [Last Taken Unknown] Calcium Carbonate [Tums 500MG (*)] 500 mg PO TID PRN tab.chew 03/30/18 [Last Taken Unknown] Lidocaine 4%/Menthol 1% [Icy Hot Lidocaine/Menthol 4%/1% Patch (*)] 1 patch TD DAILY@2100 PRN patch 03/30/18 [Last Taken Unknown] Methocarbamol [Robaxin 500 mg (*)] 1,000 mg PO QID PRN #12 tab 03/30/18 [Last Taken Unknown] Metoprolol Tartrate [Lopressor 25 mg (*)] 6.25 mg PO BID #10 tab 03/30/18 [Last Taken Unknown] Multivitamins [Multivitamin (*)] 1 each PO DAILY tab 03/30/18 [Last Taken Unknown] Pantoprazole Sodium [Protonix 40mg (*)] 40 mg PO DAILY #30 tab 03/30/18 [Last Taken Unknown] Patch Removal 1 ea TD DAILY patch 03/30/18 [Last Taken Unknown] Polyethylene Glycol 3350 [Miralax 17 gm (*)] 17 gm PO DAILY pkt 03/30/18 [Last Taken Unknown] Vancomycin [Vancomycin (*)] 4.5 gm IV Q24H vial 03/30/18 [Last Taken Unknown] Vitamin B Complex [Vitamin B Complex (OTC)] 1 ea PO DAILY ea 03/30/18 [Last Taken Unknown] diphenhydrAMINE [Benadryl 50 MG (*)] 50 mg PO HS PRN cap 03/30/18 [Last Taken Unknown] oxyCODONE IR [Oxycodone Ir (*)] 5 - 10 mg PO Q4HRS PRN #20 tab 03/30/18 [Last Taken Unknown] Snf Antibiotics: vancomycin 4.5 gm IV continuous infusion Crisis Intervention Specialist Antibiotic Stop Date: 05/08/18 Discharge Medications: Refer to the Discharge Home Medication list for PRN reason. PICC Care - Routine: Yes - Orders Services needed: Home Care, Registered Nurse Home Care Face to Face: I certify that this patient was under my care and that I had the required [id number] encounter meeting the encounter requirements on the discharge day. My findings support the fact that the patient is homebound as defined in Home Care Face to Face Continued: CMS Chapter 7 Medicare Benefits Manual 30.1.1 , The condition of the patient is such that there exists a normal inability to leave home and consequently, leaving home would require a considerable and taxing effort. Isolation Type: Contact Isolation Diet Recommendation: no restrictions on diet - Labs/Radiology BMP Date: 04/04/18 (Weekly ) CBC w/diff Date: 04/01/18 (Weekly Sunday) CMP Date: 04/01/18 (Weekly Sunday) Vanco Trough Date and Time: Vancomycin random every Sunday and 1st dates are 04/01 and 04/04 Call or Fax Lab and Imaging Results to: Kourtney Wallace MD [facility] at fax [phone] - Follow Up Care Current Providers and Referrals: Kourtney Wallace MD [Medical Doctor] - 04/10/18 11:00 am NONE *PRIMARY CARE P,. [Primary Care Provider] - As per Instructions
--- NOTE | 2018-03-31 13:43 | GDS ---
DISCHARGE DIAGNOSES: 1. Methicillin-resistant Staphylococcus aureus bacteremia. 2. Left septic hip. 3. Pain. 4. Atrial fibrillation. 5. Hyponatremia. 6. Transaminitis. 7. Anemia. 8. Anxiety. CONSULTATIONS: 1. Cardiology. 2. Infectious Disease. 3. Orthopedics. PHYSICAL EXAM: GENERAL: The patient is alert. VITAL SIGNS: Afebrile at 36.7, pulse 91, respirator y rate 14, blood pressure is 103/70, saturating 95% on room air. I have seen and evaluated the patient on the day of discharge. HOSPITAL COURSE: The patient is a 42-year-old male who presents with hip pain. He was evaluated and diagnosed with: 1. MRSA sepsis with bacteremia. He did receive a consultation and intervention regarding his hip in [facility]. He has been placed on continuous vancomycin and will continue this in the outpatient [facility]. 2. Left hip septic arthritis. He did have a washout with Dr. Rodriguez as well as multiple laparoscopic procedures. His drains have been removed. He will follow up in the outpatient setting with Dr. Antony lozoya. 3. Pain. This has resolved. 4. Atrial fibrillation in this setting of acute infection. Continue his low-dose Lopressor at the t yandy of disposition. 5. Hyponatremia. This is stable. 6. Transaminitis. This is stabilized. 7. Normocytic anemia, likely secondary to infectious process and stable. DISPOSITION: The patient will be discharged home with home health care and 24-hour vancomycin infusi on. There are no pending studies. Followup will be with Dr. Rodriguez as well as Dr. Kourtney Wallace of [facility] and the patient's primary care physician. DISCHARGE MEDICATIONS: Please refer to EMR form. Again, he will continue on continuous IV vancomyci n. TIME SPENT WITH PATIENT: I spent greater than 35 minutes in the care, coordination, and management o f patient's disposition. /[id number]/MODL
== END 2018-03-30 17:47 | disposition home health service (06) | DRG 710 ==
LOC: F3N 19:45 → F2N 03-19 18:32 → F3N 03-20 17:44
PROVIDERS: ADMIT Internal Medicine; ATTEND Internal Medicine
PROC: 0S9B3ZX Drainage of Left Hip Joint, Percutaneous Approach, Diagnostic (ICD-10-PCS; 2018-03-13)
PROC: 0S9 Lower Joints, Drainage (ICD-10-PCS; principal; 2018-03-14 14:30)
PROC: 0SB Lower Joints, Excision (ICD-10-PCS; principal; 2018-03-14 14:30)
PROC: 0SBB4ZZ Excision of Left Hip Joint, Percutaneous Endoscopic Approach (ICD-10-PCS; 2018-03-17)
PROC: 0SB Lower Joints, Excision (ICD-10-PCS; 2018-03-17)
PROC: 0S9 Lower Joints, Drainage (ICD-10-PCS; 2018-03-19)
PROC: 0K9 Muscles, Drainage (ICD-10-PCS; 2018-03-19)
PROC: 0K9P0ZZ Drainage of Left Hip Muscle, Open Approach (ICD-10-PCS; 2018-03-24)
PROC: 0S9B0ZZ Drainage of Left Hip Joint, Open Approach (ICD-10-PCS; 2018-03-24)
PROC: B245ZZ4 Ultrasonography of Left Heart, Transesophageal (ICD-10-PCS; 2018-03-28)
PROC: 02HV33Z Insertion of Infusion Device into Superior Vena Cava, Percutaneous Approach (ICD-10-PCS; 2018-03-30)
DX: A41.02 Sepsis due to Methicillin resistant Staphylococcus aureus (principal); M00.852 Arthritis due to other bacteria, left hip; I48.91 Unspecified atrial fibrillation; E87.1 Hypo-osmolality and hyponatremia; R78.81 Bacteremia; D64.9 Anemia, unspecified; F41.9 Anxiety disorder, unspecified; G47.00 Insomnia, unspecified
CPT/HCPCS: 82784-90; 86704-90; 86708-90; 96374; 97110-GP; 97116-GP; 97161-GP; 97166-GO; 97530-GO; 97530-GP; 97535-GO; A9585; C1713; C1751; G0472; J0171; J0878; J1100; J1170; J1885; J2001; J2060; J2250; J2405; J2704; J2710; J3010; J3370; Q9967